=== PATIENT | male | born 1955 | race Caucasian/White ===

== ENCOUNTER 2021-06-22 05:18 | Inpatient (IN) ==
[2021-06-22] MEDS ORDERED: ONDANSETRON INJ 2 MG/ML 2 ML VIAL IV STA (05:41)
[2021-06-22] MEDS ORDERED: MoRPHine SULFATE 4 MG/ML 1 ML CARP\\VIAL IV STA (05:41)
[2021-06-22] MEDS ORDERED: SODIUM CHLORIDE 0.9% 1000ML 500 ML IV ONE (05:42)
--- NOTE | 2021-06-22 05:43 | Emergency Department Note ---
History of Present Illness General Chief complaint: Kidney Stone Stated complaint: PAIN IN KIDNEY AREA OF BACK Time Seen by Provider: 06/22/21 05:27 History of Present Illness Maximum Pain Intensity: 10 This is a 66-year-old male with a past medical history significant for that of kidney stones that presents to the emergency department via private vehicle accompanied by female with complaints of "left flank pain". The patient notes that he developed a dull left flank pain around 10:30 PM that has significantly worsened since that time. He notes a history of kidney stones and this feels similar. He previously has followed in [place] for these and recently moved to the area. He states that he was on an herbal supplement called ZoomSafer Stone Free but ran out of this about 30 days ago. He was taking this once daily. At this time he denies any fevers, chills, chest pain, shortness of breath or abdominal pain. Current pain 10/10. No hematuria. He does state tanesha t he did pass a few small pieces of stone a few days ago. Past Med/Surg History Medical History (Updated 06/22/21 @ 08:26 by Zion Valente PA-C) History of kidney stones Social History Smoking Status: Former smoker Preferred Language: Japanese Feels Safe at Home: Yes Review of Systems A total of 10 systems reviewed and were otherwise negative Physical Exam Vital Signs Vital Signs - 24 hr 06/22/21 05:20 06/22/21 05:49 Temperature 36.9 C Temperature Source Temporal Artery Scan Pulse Rate 60 57 L Pulse Rate [Right Finger] 61 Pulse Rhythm Regular Pulse Rhythm [Right Finger] Regular Respiratory Rate 18 18 Respiratory Effort / Characteristics Non-Labored Respiratory Depth Normal Normal Blood Pressure 193/95 H Blood Pressure Mean 127 Pulse Oximetry 96 96 Oxygen Delivery Method Room Air Room Air Sepsis Recent Fever Within 48 Hours No Sepsis New/Unexplained Change in Mental Status N/A Sepsis Action Taken by Nursing No Action Required VITAL SIGNS - Vital signs and nursing notes were reviewed. Stable and afebrile. GENERAL -66-year-old male appearing his stated age who is in no acute distress. Communicates well with provider and answers questions appropriately. SKIN - Without rashes. No meningeal or petechial rash. LUNGS - Chest wall symmetric without accessory muscle use, intercostals retractions, or central cyanosis. Normal vesicular breath sounds CTA B/L. No wheezes, rales, or rhonchi appreciated. CARDIAC - RRR with S1/S2. No murmur, rubs, or gallops appreciated. ABDOMEN - Abdominal contour normal without pulsations or visible masses. BS normoactive all four quadrants. No tenderness, palpable masses, hepatosplenomegaly, or ascites noted. NEUROLOGIC - Cranial nerves II through XII grossly intact. PSYCH - A&O, and cooperates fully with examiner. Pt is very pleasant and interacts well with examiner. Course Administered Medications Discontinued Medications Hydromorphone HCl (Hydromorphone Inj 0.5 Mg/0.5 Ml Syr) 0.5 mg IV NOW STA Stop: 06/22/21 06:26 Last Admin: 06/22/21 06:27 Dose: 0.5 mg Documented by: [id number] Sodium Chloride (Nss 1000ml) 500 mls @ 500 mls/hr IV .Q1H ONE Stop: 06/22/21 06:41 Last Infusion: 06/22/21 06:53 Dose: 0 mls/hr Documented by: [id number] Admin: 06/22/21 05:49 Dose: 500 mls/hr Documented by: [id number] Morphine Sulfate (Morphine Sulfate 4 Mg/Ml 1 Ml Carp\\Vial) 4 mg IV NOW STA Stop: 06/22/21 05:42 Last Admin: 06/22/21 05:48 Dose: 4 mg Documented by: [id number] Ondansetron HCl (Ondansetron Inj 2 Mg/Ml 2 Ml Vial) 4 mg IV NOW STA Stop: 06/22/21 05:42 Last Admin: 06/22/21 05:48 Dose: 4 mg Documented by: [id number] Medical Decision Making Laboratory Data Result diagrams: 06/22/21 05:30 06/22/21 05:30 Lab Results 06/22/21 06/22/21 06/22/21 Range/Units 05:30 05:30 05:31 WBC 13.31 H (4.8-10.8) K/uL RBC 3.74 L (4.7-6.1) M/uL Hgb 11.0 L (14.0-18.0) g/dL Hct 36.8 L (42-52) % MCV 98.4 (80-100) fL MCH 29.4 (25-34) pg MCHC 29.9 L (32-36) g/dL RDW Std Deviation 56.9 H (36.4-46.3) fL RDW Coeff of So 16.0 H (11.5-14.5) % Plt Count 319 (130-400) K/uL MPV 11.1 H (7.4-10.4) fL Immature Gran % (Auto) 0.2 % Neut % (Auto) 81.9 % Lymph % (Auto) 6.4 % [place] % (Auto) 10.8 % Eos % (Auto) 0.6 % Baso % (Auto) 0.1 % Neut # (Auto) 10.91 H (1.4-6.5) K/uL Lymph # (Auto) 0.85 L (1.2-3.4) K/uL [place] # (Auto) 1.44 H (0.11-0.59) K/uL Eos # (Auto) 0.08 (0-0.5) K/uL Baso # (Auto) 0.01 (0-0.2) K/uL Immature Gran # (Auto) 0.02 (0.00-0.02) K/uL Sodium 145 (136-145) mmol/L Potassium 4.0 (3.5-5.1) mmol/L Chloride 115 H (98-107) mmol/L Carbon Dioxide 23 (21-32) mmol/L Anion Gap 7.0 (3-11) BUN 35 H (7-18) mg/dl Creatinine 2.06 H (0.6-1.4) mg/dl Est Cr Clr Drug Dosing 33.0 ml/min Est GFR ( Amer) 37.2 ml/min Est GFR (Non-Af Amer) 32.1 ml/min BUN/Creatinine Ratio 17.1 (10-20) Glucose 109 H (70-99) mg/dl Calcium 8.9 (8.5-10.1) mg/dl Total Bilirubin 0.3 (0.2-1) mg/dl AST 17 (15-37) U/L ALT 38 (12-78) Alkaline Phosphatase 92 (45-117) U/L Total Protein 6.8 (6.4-8.2) gm/dl Albumin 3.6 (3.4-5.0) gm/dl Globulin 3.2 (2.5-4.0) gm/dl Albumin/Globulin Ratio 1.1 (0.9-2) Urine Color Yellow Urine Appearance Clear (Clear) Urine pH 5.0 (4.5-7.5) Ur Specific [place] 1.024 (1.000-1.030) Urine Protein Negative (Negative) Urine Glucose (UA) Negative (Negative) Urine Ketones Negative (Negative) Urine Blood Trace H (Negative) Urine Nitrite Negative (Negative) Urine Bilirubin Negative (Negative) Urine Urobilinogen Negative (Negative) Ur Leukocyte Esterase Trace H (Negative) Urine WBC (Auto) 10-30 H (0-5) /hpf Urine RBC (Auto) 10-30 H (0-4) /hpf U Hyaline Cast (Auto) 1-5 (0-5) /lpf U Epithel Cells (Auto) 5-10 H (0-5) /lpf Urine Bacteria (Auto) Negative (Negative) Urine Yeast Not Reportable MDM Narrative Patient was seen and evaluated as above in room C01. Review was performed of triage nursing notes and vital signs. After obtaining a thorough history and physical examination the above work up was performed. Patient presents to us today with left flank pain. No trauma or injury. He is hypertensive on arrival likely secondary to pain. He has a history of kidney stones. This feels similar. He is nontoxic on exam. Options of care were discussed with the patient. IV access was established. L abs were drawn. He was medicated with IV fluids, IV Zofran, IV morphine. This provided minimal relief. IV Dilaudid then ordered. A CT scan of the abdomen pelvis without IV contrast was ordered to evaluate for his left flank pain. Patient case signed out to Harrison Carbajal PA-C at shift change pending CT scan results and disposition. Please refer to further documentation regarding his stay. Labs here reveal leukocytosis 13.31. Anemia 11.0. Creat 2.06, BUN 35. No previous for comparison. Urinalysis reveals trace blood, trace leukocytes, 10- 30 white blood cells, 10-30 red blood cells, 5-10 epithelial cells. No bacteria. GCS: 15 In the evaluation and treatment of this patient the following differential diagnoses were entertained: Hydronephrosis, obstruction, kidney stone, UTI, pyelonephritis, acute abdomen, among others. Impression & Plan Acute left flank pain Discharge Plan Visit Data Chief Complaint: Kidney Stone Stated Complaint: PAIN IN KIDNEY AREA OF BACK ED Provider: Jose Alberto Marmole[facility] ED Midlevel Provider: Johnny Carbajal Discharge Problem: Acute left flank pain Patient Disposition: Still a Patient Condition: Good Forms Stand Alone Forms: [facility] Referrals Referrals: PCP,NO [Physician] -
[2021-06-22 06:06] LABS: Appearance Urine Clear (Clear); Bacteria Urine Automated Negative (Negative); Bilirubin Urine Negative (Negative); Blood Urine Trace (Negative); Color Urine Yellow; Glucose Urine UA Negative (Negative); Ketones Urine Negative (Negative); Leukocyte Esterase Urine Trace (Negative); Nitrite Urine Negative (Negative); Protein Urine Negative (Negative); Specific Gravity Urine 1.024 (1.000-1.030); Urobilinogen Urine Negative (Negative)
[2021-06-22] MEDS ORDERED: HYDROmorphone INJ 0.5 MG/0.5 ML SYR IV STA ×3 (06:25→09:27)
[2021-06-22 06:57] LABS: Basophils # (auto) 0.01 K/uL (0-0.2); Basophils % (auto) 0.1 %; Eosinophils # (auto) 0.08 K/uL (0-0.5); Eosinophils % (auto) 0.6 %; Hematocrit (blood only) 36.8 % (42-52); Immature Granulocytes # (auto) 0.02 K/uL (0.00-0.02); Immature Granulocytes % (auto) 0.2 %; Lymphocytes # (auto) 0.85 K/uL (1.2-3.4); Lymphocytes % (auto) 6.4 %; Mean Corpuscular Hemoglobin 29.4 pg (25-34); Mean Corpuscular Hgb Conc 29.9 g/dL (32-36); Mean Corpuscular Volume 98.4 fL (80-100); Mean Platelet Volume 11.1 fL (7.4-10.4); Monocytes # (auto) 1.44 K/uL (0.11-0.59); Monocytes % (auto) 10.8 %; Neutrophils # (auto) 10.91 K/uL (1.4-6.5); Neutrophils % (auto) 81.9 %; Platelet Count 319 K/uL (130-400); RDW Standard Deviation 56.9 fL (36.4-46.3); Red Blood Count 3.74 M/uL (4.7-6.1); White Blood Count 13.31 K/uL (4.8-10.8)
[2021-06-22 07:05] LABS: Albumin Level 3.6 gm/dl (3.4-5.0); BUN Creatinine Ratio 17.1 (10-20); Calcium 8.9 mg/dl (8.5-10.1); Est GFR (African American) 37.2 ml/min; Est GFR (Non-African American) 32.1 ml/min
[2021-06-22 07:08] LABS: Albumin Globulin Ratio 1.1 (0.9-2); Bilirubin,Total 0.3 mg/dl (0.2-1); Globulin 3.2 gm/dl (2.5-4.0); Total Protein 6.8 gm/dl (6.4-8.2)
[2021-06-22] MEDS ORDERED: NORCO 5/325MG HOMEPACK PO ONE (08:49)
--- NOTE | 2021-06-22 09:03 | CT Scan Report ---
CT abd pelvis wo con CLINICAL HISTORY: L flank pain TECHNIQUE: Helical axial images of the abdomen and pelvis were obtained. Automated dose lowering tech niques and/or adjustment according to patient size were utilized for this exam. This exam was perfor med without intravenous contrast. COMPARISON: None available at the time of this dictation. FINDINGS: Lower chest: Bibasilar atelectasis versus scarring is seen. Liver: Unremarkable. No focal lesions are seen. Gallbladder and biliary tree: The gallbladder is distended. A gallstone is seen. No evidence of wall thickening. No intra- or extrahepatic biliary ductal dilation. Pancreas: Unremarkable, no focal lesions. Spleen: Unremarkable. Adrenals: Unremarkable. Kidneys and ureters: There is marked left hydronephrosis and hydroureter with a 4 mm obstructive ston e in the proximal ureter. Bladder: A stone is seen in the dependent portion of the bladder. Reproductive organs: Unremarkable. Bowel: Large stool burden is seen. Radiodense material is noted in the colon. Status post gastric edu luh. Lymph nodes Retroperitoneal: Unremarkable. Mesenteric: Unremarkable. Pelvic: Unremarkable. Peritoneum: Normal Vessels: Unremarkable. Abdominal wall: Unremarkable. Bones: Unremarkable. IMPRESSION: 1. Obstructive stone in the proximal left ureter with marked left hydronephrosis and hydroureter. A stone is also seen in the dependent portion of the bladder which likely reflects recently passed ston e. 2. Large stool burden. ACT 112: Negative or not required by law. Electronically signed by: James Talbot M.D. 06/22/2021 9:02 AM
--- NOTE | 2021-06-22 09:23 | Emergency Department Note ---
ED Visit Note 66-year-old male whose care was transferred to sd from [facility] at change of shift. The patient presented to the emergency department with left flank pain onset last evening. The patient has a known history of kidney stones, and reports that this feels similar. At the time of transfer of care, noncontrast CT of the abdomen and pelvis was pending. The patient had been administered both IV morphine and hydrocodone for pain. Lab work showed a mild leukocytosis with left shift and without bandemia. Creatinine was also mildly bumped at 2.06. Urinalysis was not concerning for infection. Noncontrast CT of the abdomen and pelvis did show a large 5.2 mm diameter X 11 mm length left proximal ureteral calculus with moderate to severe hydroureteronephrosis. Local radiologist reading, however, indicated a 4 mm obstructive stone within the proximal ureter with marked left hydroureteronephrosis. Other incidental findings, including a gallstone, are also noted in the following report: CT abd pelvis wo con CLINICAL HISTORY: L flank pain TECHNIQUE: Helical axial images of the abdomen and pelvis were obtained. Auto mated dose lowering techniques and/or adjustment according to patient size were utilized for this exam. This exam was performed without intravenous contrast. COMPARISON: None available at the time of this dictation. FINDINGS: Lower chest: Bibasilar atelectasis versus scarring is seen. Liver: Unremarkable. No focal lesions are seen. Gallbladder and biliary tree: The gallbladder is distended. A gallstone is seen. No evidence of wall thickening. No intra- or extrahepatic biliary ductal dilation. Pancreas: Unremarkable, no focal lesions. Spleen: Unremarkable. Adrenals: Unremarkable. Kidneys and ureters: There is marked left hydronephrosis and hydroureter with a 4 mm obstructive stone in the proximal ureter. Bladder: A stone is seen in the dependent portion of the bladder. Reproductive organs: Unremarkable. Bowel: Large stool burden is seen. Radiodense material is noted in the colon. Status post gastric surgery. Lymph nodes Retroperitoneal: Unremarkable. Mesenteric: Unremarkable. Pelvic: Unremarkable. Peritoneum: Normal Vessels: Unremarkable. Abdominal wall: Unremarkable. Bones: Unremarkable. IMPRESSION: 1. Obstructive stone in the proximal le ft ureter with marked left hydronephrosis and hydroureter. A stone is also seen in the dependent portion of the bladder which likely reflects recently passed stone. 2. Large stool burden. ACT 112: Negative or not required by law. Electronically signed by: James Talbot M.D. 06/22/2021 9:02 AM Findings were discussed with the patient. At this point, I contacted and spoke with Dr. Mai, urologist pets salesperson, who indicated that a ureteral stent is not necessary. He has recommended outpatient management with adequate pain control, or may admit to the hospital for pain management and he can consult as needed for further management. This conversation was further discussed with the patient, who initially favoredoutpatient management. He did request additional pain medicine, and was administered 2 additional doses of IV Dilaudid without any significant relief of his discomfort. He then started to develop some mild reflux. At this point, since the patient has not had adequate pain relief, [facility]. The patient was in agreement. The patient was administered IV Pepcid. COVID-19 RNA test was negative. Please see the hospitalist and urologist dictations for further treatment and final disposition. MEDICAL DECISION MAKING: CT imaging today does show evidence for a proximal left ureteral calculus with marked hydroureteronephrosis. The patient also has a bump in his BUN, and has had poor pain control while in the emergency department. Urinalysis is not suggestive of infection. I do feel that hospital observation with pain management and urology consultation is warranted. DIAGNOSIS: 1. Intractable left flank pain 2. Proximal left ureteral calculus .
[2021-06-22] MEDS ORDERED: FAMOTIDINE 20MG/5ML IV PUSH IV STA (10:26)
[2021-06-22] MEDS ORDERED: hydrALAZINE HCL 20 MG/ML VIAL IV PRN (11:29)
[2021-06-22] MEDS ORDERED: POLYETHYLENE (MIRALAX) 17 GM PACK PO SCH (13:52)
[2021-06-22] MEDS ORDERED: HYDROCODONE/ACETAMOPHEN 5/325MG TAB PO PRN (13:52)
[2021-06-22] MEDS ORDERED: SODIUM CHLORIDE 0.9% 1000ML 1,000 ML IV SCH (13:52)
[2021-06-22] MEDS ORDERED: hydrALAZINE HCL 20 MG/ML VIAL IV ONE (13:52)
[2021-06-22] MEDS ORDERED: MAGNESIUM HYDROXIDE SUSP 30 ML UDC PO PRN (13:52)
[2021-06-22] MEDS ORDERED: HYDROmorphone INJ 0.5 MG/0.5 ML SYR IV PRN (13:52)
[2021-06-22] MEDS ORDERED: PATIENT'S ALLERGY INFO NEEDS ENTERED SCH (14:00)
[2021-06-22] MEDS ORDERED: HYDROCODONE/ACETAMOPHEN 5/325MG TAB PO ONE (14:16)
[2021-06-22] MEDS ORDERED: PROMETHAZINE HCL 12.5 MG in SODIUM CHLORIDE 0.9% 50 ML IV PRN (14:45)
[2021-06-22] MEDS ORDERED: RIVAROXABAN 20 MG TAB PO ONE (17:05)
--- NOTE | 2021-06-22 17:23 | History & Physical Report ---
Date of Service June 22, 2021 Assessment & Plan (1) Calculus of proximal left ureter: Plan: 66-year-old male with history of hypertension, dyslipidemia, GERD, BPH, kidney stones, migraine, peripheral artery disease on Xarelto Presenting with left flank pain since yesterday. LEFT PROXIMAL URETERAL STONE, 4 MM WITH HYDRONEPHROSIS AND HYDROURETER ACUTE RENAL FAILURE ON CHRONIC KIDNEY DISEASE STAGE III Baseline creatinine 1.6 now 2.0 Continue IV NSS, tamsulosin, as needed Dilaudid, [place], tramadol Urologist consulted Clear liquids for today, n.p.o. after midnight POSSIBLE UTI Urine culture: Pending Ceftriaxone IV 2 g IV daily HYPERTENSION Continue atenolol HISTORY OF PERIPHERAL ARTERY DISEASE, RIGHT LOWER EXTREMITY On Xarelto and aspirin HISTORY OF DEPRESSION/ANXIETY On sertraline DVT prophylaxis SCDs for now Full code per patient Disposition anticipate discharge to home medically stable plan of care discussed with patient and his in detail and at length all questions answered They are understanding, agreeable, comfortable with the plan of care Admission and Anticipated Discharge Date Admission Date: June 22, 2021 History of Present Illness Chief Complaint: 66-year-old male with history of hypertension, dyslipidemia, GERD, BPH, kidney stones, migraine, peripheral artery disease on Xarelto Presenting with left flank pain since yesterday. Patient follows with [facility] urologist Dr. Alexandro Brasher for kidney stones. Since yesterday, patient has been having progressive left-sided flank pain with no dysuria, fevers or chills, hematuria. Presented to the ER secondary to severe pain. CAT scan of the abdomen pelvis revealing 4 mm left ureteral proximal stone. Creatinine also elevated 2.0. Urinalysis showing possible UTI. On exam, patient seen resting in bed, at bedside visiting. States pain is now mild, no fevers or chills. Denies shortness of breath, palpitations, dizziness, chest pain. Reports chronic right upper quadrant discomfort, worse informed that he has gallbladder stone on previous follow-up visits with physician. No other symptoms Primary Care Provider: Joann Ireland MD Allergies Allergy/AdvReac Type Severity Reaction Status Date / Time Penicillins AdvReac Intermediate Rash Verified 06/22/21 14:25 Sulfa (Sulfonamide AdvReac Intermediate Rash Verified 06/22/21 14:25 Antibiotics) Home Medications Medication Instructions Recorded Confirmed Type atenolol 25 mg tablet 25 mg PO DAILY 06/22/21 06/22/21 History finasteride 5 mg tablet 5 mg PO DAILY 06/22/21 06/22/21 History fluticasone propionate 50 1 spray INTRANASAL DAILY 06/22/21 06/22/21 History mcg/actuation nasal spray,suspension hydrocodone 5 mg-acetaminophen 325 1 tab PO Q4H PRN #15 tab 06/22/21 Rx mg tablet montelukast 10 mg tablet 10 mg PO DAILY 06/22/21 06/22/21 History prednisone 20 mg tablet 20 mg PO DAILY 06/22/21 06/22/21 History rivaroxaban 20 mg tablet (Xarelto) 20 mg PO DAILY 06/22/21 06/22/21 History sertraline 100 mg tablet 100 mg PO DAILY 06/22/21 06/22/21 History sumatriptan succinate 100 mg tablet 100 mg PO DAILY PRN 06/22/21 06/22/21 H istory Past Med/Surg History Medical History (Updated 06/22/21 @ 08:48 by Johnny Carbajal) History of kidney stones Social History Smoking Status: Never smoker Second Hand Exposure: No; Do You Dip or Chew Tobacco: No; Tobacco Cessation Education Requested by Patient: No Hx Alcohol Use: No Hx Substance Use: No Preferred Language: Surinamese Communication Ability: Effective Inspector Type Required: No Beliefs That Will Affect Care: None Current Living Situation: Spouse Other Information That Helps Us Care for You: No Feels Safe at Home: Yes Safety Concerns: Feels Safe At This Time Assistive Devices: Denture - Upper Review of Systems Review of Systems: all noted and negative except for above Physical Exam Physical Exam: General- oriented x 3, not in distress, speaks in sentences with no effort or accessory muscle use Head- atraumatic Eyes- PERRL, EOMI, anicteric ENT- oropharynx clear Neck- supple, no JVD, no adenopathy, no thyromegaly; carotids +2/2, no bruits appreciated Lungs- clear to auscultation bilaterally, no rales/wheezes Heart- normal rate, regular rhythm; no murmur, no gallop, no rub appreciated Abdomen- normal bowel sounds, nondistended, soft, mild right upper quadrant tenderness, mild left CVA tenderness no masses or hepatosplenomegaly Extremities- no pretibial edema, no calf tenderness; peripheral pulses intact Neuro- alert, oriented x 3; CN 2-12 grossly intact; motor 5/5 bilaterally;sensation 100% on all extremities; no other gross focal neurologic deficits Skin- warm & dry Results & Data Results & Data ([facility]) Vital Signs (Past 12 Hours) Vital Signs Temp Pulse Pulse Resp BP BP Pulse Ox 06/22/21 15:50 36.8 C 67 16 147/77 H 97 06/22/21 13:35 75 17 150/86 H 96 06/22/21 12:04 159/91 H 06/22/21 11:40 165/97 H 06/22/21 11:13 68 18 198/108 H 93 06/22/21 09:00 88 18 169/100 H 97 06/22/21 07:18 88 18 177/103 H 96 06/22/21 05:49 57 L 61 18 96 all noted and reviewed including below Code Status & VTE Plan VTE Prophylaxis Plan VTE Prophylaxis will be ordered: Yes
[2021-06-22] MEDS: TAMSULOSIN HCL 0.4 MG CAP PO SCH (17:55)
[2021-06-22] MEDS: cefTRIAXone SODIUM 1,000 MG in DEXTROSE 5% 50 ML IV SCH (17:55)
[2021-06-22] MEDS: ASPIRIN 81 MG ECTAB PO SCH (17:56)
[2021-06-22] MEDS: SUMAtriptan succinate 100 MG TAB PO PRN (18:26)
--- NOTE | 2021-06-22 19:46 | Ultrasound Report ---
US gallbladder CLINICAL HISTORY: r/o cholecystitis TECHNIQUE: Multiple real-time sonographic images of the right upper quadrant were obtained. Comparison: Comparison is made to CT abdomen pelvis 06/22/2021 FINDINGS: The liver is diffusely echogenic in appearance with poor ultrasound penetration, with normal contour, which is consistent with fatty infiltration. No focal mass lesions are seen. No intrahepatic lenny livier dilatation is seen. The gallbladder is dilated. A single gallstone is seen which appears mobile. A sonographic Arvizu's sign was not elicited by the social work msw. The common duct measures 0.9 cm i n diameter at the level of the hepatic artery. The visualized portions of the pancreas appear normal . The right kidney shows normal echogenicity, cortical thickness and renal contour. The right kidney sh ows no evidence of hydronephrosis or mass. No ascites or free fluid is seen in Montanez's pouch. IMPRESSION: 1. No evidence of acute cholecystitis. Prominent gallbladder, no evidence of wall thickening or Murp hy's sign. Mobile gallstone is noted. 2. Common duct measures 0.9 cm in diameter, slightly dilated for age. ACT 112: Negative or not required by law. Electronically signed by: James Talbot M.D. 06/22/2021 7:45 PM
[2021-06-23] MEDS: traMADol HCL 50 MG TABLET PO PRN ×2 (00:16→05:06)
[2021-06-23 07:59] LABS: Eosinophils # (auto) 0.01 K/uL (0-0.5); Eosinophils % (auto) 0.1 %; Hematocrit (blood only) 33.3 % (42-52); Hemoglobin 9.8 g/dL (14.0-18.0); Immature Granulocytes # (auto) 0.02 K/uL (0.00-0.02); Immature Granulocytes % (auto) 0.2 %; Lymphocytes # (auto) 0.75 K/uL (1.2-3.4); Lymphocytes % (auto) 6.6 %; Mean Corpuscular Hemoglobin 28.9 pg (25-34); Mean Corpuscular Hgb Conc 29.4 g/dL (32-36); Mean Corpuscular Volume 98.2 fL (80-100); Mean Platelet Volume 10.8 fL (7.4-10.4); Monocytes # (auto) 0.48 K/uL (0.11-0.59); Monocytes % (auto) 4.2 %; Neutrophils # (auto) 10.05 K/uL (1.4-6.5); Neutrophils % (auto) 88.9 %; Platelet Count 234 K/uL (130-400); RDW Standard Deviation 57.7 fL (36.4-46.3); Red Blood Count 3.39 M/uL (4.7-6.1); White Blood Count 11.31 K/uL (4.8-10.8)
[2021-06-23 08:32] LABS: BUN Creatinine Ratio 15.8 (10-20); Calcium 8.4 mg/dl (8.5-10.1); Creatinine Clr Calc Pharmacy 31.3 ml/min; Est GFR (Non-African American) 30.2 ml/min; Potassium 4.7 mmol/L (3.5-5.1)
[2021-06-23] MEDS ORDERED: HYDROCODONE/ACETAMOPHEN 5/325MG TAB PO PRN (08:32)
[2021-06-23] MEDS ORDERED: HYDROmorphone INJ 0.5 MG/0.5 ML SYR IV PRN (08:32)
[2021-06-23] MEDS ORDERED: RIVAROXABAN 20 MG TAB PO SCH (09:00)
[2021-06-23] MEDS: TAMSULOSIN HCL 0.4 MG CAP PO SCH (09:20)
[2021-06-23] MEDS: SERTRALINE HCL 100 MG TABLET PO SCH (09:20)
[2021-06-23] MEDS: FLUTICASONE PROPIONATE NA SPR 16 GM BTL SCH (09:20)
[2021-06-23] MEDS: ATENOLOL 25 MG TABLET PO SCH (09:20)
[2021-06-23] MEDS: FINASTERIDE 5 MG TAB PO SCH (09:20)
[2021-06-23] MEDS: MONTELUKAST SODIUM 10 MG TABLET PO SCH (09:20)
--- NOTE | 2021-06-23 10:28 | Anesthesiology Consultation ---
Date of Service June 23, 2021 Assessment & Plan (1) Encounter for pre-operative examination: Chart Review Chart Review: Acceptable Risk for Surgery and Patient NOT seen in Pre Admission Testing Consults Requested none History Surgery Operation Date: 06/23/21 12:00 Proposed Procedures p Ureteral Stent Insertion/Removal, Left - Trevon Mai MD Height/Weight Height: 6 ft Weight: 67.9 kg Allergies Allergy/AdvReac Type Severity Reaction Status Date / Time Penicillins AdvReac Intermediate Rash Verified 06/22/21 14:25 Sulfa (Sulfonamide AdvReac Intermediate Rash Verified 06/22/21 14:25 Antibiotics) Medications Home Medications Medication Instructions Recorded Confirmed Last Taken atenolol 25 mg tablet 25 mg PO DAILY 06/22/21 06/22/21 Unknown finasteride 5 mg tablet 5 mg PO DAILY 06/22/21 06/22/21 Unknown fluticasone propionate 50 1 spray INTRANASAL DAILY 06/22/21 06/22/21 Unknown mcg/actuation nasal spray,suspension hydrocodone 5 mg-acetaminophen 325 1 tab PO Q4H PRN #15 tab 06/22/21 Unknown mg tablet montelukast 10 mg tablet 10 mg PO DAILY 06/22/21 06/22/21 Unknown prednisone 20 mg tablet 20 mg PO DAILY 06/22/21 06/22/21 Unknown rivaroxaban 20 mg tablet (Xarelto) 20 mg PO DAILY 06/22/21 06/22/21 Unknown sertraline 100 mg tablet 100 mg PO DAILY 06/22/21 06/22/21 Unknown sumatriptan succinate 100 mg tablet 100 mg PO DAILY PRN 06/22/21 06/22/21 Unknown Active Medications Generic Name Dose Route Start Last Admin Trade Name Freq PRN Reason Stop Dose Admin Hydrocodone Bitart/Acetaminophen 1 tab 06/23/21 08:32 06/23/21 08:53 Hydrocodone/Acetamophen 5/325mg Tab PO 07/07/21 08:31 1 tab Q6H PRN Administration Moderate Pain Aspirin 81 mg 06/22/21 17:15 06/22/21 17:56 Aspirin 81 Mg Ectab PO 07/22/21 17:14 81 mg DAILY YIFAN Administration Atenolol 25 mg 06/23/21 09:00 06/23/21 09:20 Atenolol 25 Mg Tablet PO 07/23/21 08:59 25 mg DAILY YIFAN Administration Finasteride 5 mg 06/23/21 09:00 06/23/21 09:20 Finasteride 5 Mg Tab PO 07/23/21 08:59 5 mg DAILY YIFAN Administration Fluticasone Propionate 1 sprays 06/23/21 09:00 06/23/21 09:20 Fluticasone Propionate Na Spr 16 Gm Btl NA 07/23/21 08:59 1 sprays DAILY YIFAN Administration Ceftriaxone Sodium 1,000 mg/ 50 mls @ 100 mls/hr 06/22/21 18:00 06/22/21 20:35 Dextrose IV 07/02/21 17:29 Infused Q24H YIFAN Infusion Protocol Montelukast Sodium 10 mg 06/23/21 09:00 06/23/21 09:20 Montelukast Sodium 10 Mg Tablet PO 07/23/21 08:59 10 mg DAILY YIFAN Administration Sertraline HCl 100 mg 06/23/21 09:00 06/23/21 09:20 Sertraline Hcl 100 Mg Tablet PO 07/23/21 08:59 100 mg DAILY YIFAN Administration Sumatriptan Succinate 100 mg 06/22/21 16:26 06/22/21 18:26 Sumatriptan Succinate 100 Mg Tab PO 07/22/21 16:25 100 mg DAILY PRN Administration Migraine Headache Tamsulosin HCl 0.4 mg 06/22/21 17:30 06/23/21 09:20 Tamsulosin Hcl 0.4 Mg Cap PO 07/22/21 17:29 0.4 mg QAM YIFAN Administration Tramadol HCl 50 mg 06/22/21 17:06 06/23/21 05:06 Tramadol Hcl 50 Mg Tablet PO 07/22/21 17:05 50 mg Q4H PRN Administration Moderate Pain Past Medical History Medical History History of kidney stones Social History Smoking Status: Never smoker Do You Dip or Chew Tobacco: No Hx Alcohol Use: No Hx Substance Use: No Physical Exam Vital Signs Last Vital Signs Temp 98.1 F 06/23/21 07:09 Pulse 61 06/23/21 07:09 Resp 16 06/23/21 07:09 BP 163/71 H 06/23/21 07:09 Pulse Ox 97 06/23/21 07:09 Testing Laboratory Results 06/23/21 07:21 06/23/21 07:21 Urine Color Yellow 06/22/21 05:31 Urine Appearance Clear (Clear) 06/22/21 05:31 Urine pH 5.0 (4.5-7.5) 06/22/21 05:31 Ur Specific [place] 1.024 (1.000-1.030) 06/22/21 05:31 Urine Protein Negative (Negative) 06/22/21 05:31 Urine Glucose (UA) Negative (Negative) 06/22/21 05:31 Urine Ketones Negative (Negative) 06/22/21 05:31 Urine Nitrite Negative (Negative) 06/22/21 05:31 Ur Leukocyte Esterase Trace (Negative) H 06/22/21 05:31 Urine WBC (Auto) 10-30 /hpf (0-5) H 06/22/21 05:31 Urine RBC (Auto) 10-30 /hpf (0-4) H 06/22/21 05:31 U Hyaline Cast (Auto) 1-5 /lpf (0-5) 06/22/21 05:31 U Epithel Cells (Auto) 5-10 /lpf (0-5) H 06/22/21 05:31 Urine Bacteria (Auto) Negative (Negative) 06/22/21 05:31
--- NOTE | 2021-06-23 10:45 | Urology Consultation ---
Date of Consultation June 23, 2021 Assessment & Plan (1) Calculus of proximal left ureter: Symptomatic left ureteral calculus with hydronephrosis Plan for cystoscopy and left ureteral stent placement todayhe also has several small but bladder calculi and I will perform cystolitholapaxy to evacuate the stones. He will then need outpatient follow-up to definitively treat his ureteral and renal calculi. History of Present Illness Attending Physician: Sanket Dyer MD History of Present Illness 66-year-old male who recently relocated to the area Long history of kidney stones requiring ESWL on multiple prior occasions Recently developed left flank pain and was evaluated in the ER Noted to have significant left hydronephrosis with an elevated creatinine of 2.1 Left ureteral stone clearly the cause of the hydronephrosis Also has other renal stones on both sides as well as several bladder stones Afebrile, slightly hypertensive but otherwise hemodynamically stable Still having left flank pain today He did have a left stent placed years ago in [facility], he tolerated the stent relatively well He has not established with a urologist since arriving in [place] Interestingly, despite his personal history of numerous kidney stones, there is no other family history of kidney stones Allergies Allergy/AdvReac Type Severity Reaction Status Date / Time Penicillins AdvReac Intermediate Rash Verified 06/22/21 14:25 Sulfa (Sulfonamide AdvReac Intermediate Rash Verified 06/22/21 14:25 Antibiotics) Home Medications Medication Instructions Recorded Confirmed Type atenolol 25 mg tablet 25 mg PO DAILY 06/22/21 06/22/21 History finasteride 5 mg tablet 5 mg PO DAILY 06/22/21 06/22/21 History fluticasone propionate 50 1 spray INTRANASAL DAILY 06/22/21 06/22/21 History mcg/actuation nasal spray,suspension hydrocodone 5 mg-acetaminophen 325 1 tab PO Q4H PRN #15 tab 06/22/21 Rx mg tablet montelukast 10 mg tablet 10 mg PO DAILY 06/22/21 06/22/21 History prednisone 20 mg tablet 20 mg PO DAILY 06/22/21 06/22/21 History rivaroxaban 20 mg tablet (Xarelto) 20 mg PO DAILY 06/22/21 06/22/21 History sertraline 100 mg tablet 100 mg PO DAILY 12/25/21 12/25/21 History sumatriptan succinate 100 mg tablet 100 mg PO DAILY PRN 06/22/21 06/22/21 History Patient History Medical History History of kidney stones Social History Smoking Status: Never smoker Second Hand Exposure: No; Do You Dip or Chew Tobacco: No; Tobacco Cessation Education Requested by Patient: No Hx Alcohol Use: No Hx Substance Use: No Preferred Language: Canadian Communication Ability: Effective Photogrammetrist Required: No Beliefs That Will Affect Care: None Current Living Situation: Spouse Other Information That Helps Us Care for You: No Feels Safe at Home: Yes Safety Concerns: Feels Safe At This Time Assistive Devices: None Review of Systems Constitutional: no fever, no chills and no fatigue Eyes: no worsening vision Ear, Nose, Mouth, Throat: no facial pain and no pain with swallowing Respiratory: no cough and no dyspnea Cardiovascular: no chest pain and no palpitations Gastrointestinal: + abdominal pain and + nausea; no vomiting Musculoskeletal: no back pain Integumentary: no rash and no urticaria Neurologic: no gait abnormality and no unsteadiness Psychiatric: no behavioral changes and no depression Endocrine: no fatigue Physical Exam Constitutional: well developed and well nourished Neck: neck nontender Respiratory: normal respiratory effort; no respiratory distress and does not use accessory muscles Cardiovascular: Rate/Rhythm: regular rate Vessels: radial pulses present Extremities: no edema Gastrointestinal (Abdomen): Inspection/Auscultation: abdomen normal to inspection Percussion/Palpation: + abdomen tender (Left lower quadrant) and abdomen soft; no guarding Musculoskeletal: Head/Neck/Chest: normocephalic and head atraumatic Extremities: extremities normal to inspection Skin: no rashes and no lesions Trauma: no evidence of skin trauma Neurologic: awake; not obtunded Speech / Cognition: normal speech Motor/Sensory: no tremor Psychiatric: Orientation: alert and oriented x 3 Genitourinary: no CVA tenderness Lymphatic: no lymphadenopathy Results & Data ([facility]) Vital Signs (Past 12 Hours) Vital Signs Temp Pulse Resp BP Pulse Ox 06/23/21 07:09 36.7 C 61 16 163/71 H 97 06/23/21 06:16 92 06/22/21 23:41 69 17 145/76 H 92 PG Care Time/CCT Total # of Minutes Spent Total Time Spent with Patient: Total time spent is greater than 50% in coordination of care (as documented) at patient's floor/unit and/or counseling patient: Coding Level of Care Code 67446 Inpt Consult Level 3 Diagnoses Calculus of proximal left ureter N20.1
--- NOTE | 2021-06-23 12:00 | Electrocardiogram Report ---
Test Reason : Blood Pressure : / mmHG Vent. Rate : 058 BPM Atrial Rate : 058 BPM P-R Int : 150 ms QRS Dur : 090 ms QT Int : 404 ms P-R-T Axes : 033 -20 012 degrees QTc Int : 396 ms Sinus bradycardia Otherwise normal ECG No previous ECGs available Confirmed by Dedrick Sapp ([id number]) on 06/23/2021 11:59:57 AM Referred By: REFERRED SELF Confirmed By:Dedrick Sapp
[2021-06-23] MEDS ORDERED: fentaNYL citrate 100 MCG/2 ML VIAL ONE (12:43)
[2021-06-23] MEDS ORDERED: MIDAZOLAM HCL 1 MG/ML 2ML VIAL ONE (12:43)
[2021-06-23] MEDS ORDERED: ONDANSETRON INJ 2 MG/ML 2 ML VIAL IV PRN (12:54)
[2021-06-23] MEDS ORDERED: fentaNYL citrate 100 MCG/2 ML VIAL IV PRN (12:54)
[2021-06-23] MEDS ORDERED: ATROPINE SULFATE 0.1 MG/ML 10ML SYR IV PRN (12:54)
[2021-06-23] MEDS ORDERED: ePHEDrine sulfate 50 MG/ML AMP IV PRN (12:54)
[2021-06-23] MEDS ORDERED: LIDOCAINE 2% 2 ML VIAL/AMP(20MG/ML) INFIL ONE (13:04)
[2021-06-23] MEDS ORDERED: PROPOFOL IV EMULSION 10 MG/ML 20 ML VIAL IV ONE (13:04)
[2021-06-23] MEDS ORDERED: ONDANSETRON INJ 2 MG/ML 2 ML VIAL ONE (13:21)
--- NOTE | 2021-06-23 13:27 | Operative Report ---
PG Post Operative Report Pre & Post Diagnosis Operation Date: 06/23/21 12:00 Pre-Op Diagnosis: Left ureteral stone; bladder stone Post-Op Diagnosis: Left ureteral stone; bladder stone I identified the patient and participated in the time-out.: Yes Procedure Operation Date: 06/23/21 12:00 Actual Procedures p Left Ureteral Stent Insertion, cystoscopy, cystolitholopaxy(Left) - Trevon Mai MD Surgeon Norm Mai MD Director Of Patient Financial Services none Estimated Blood Loss 0 Findings Consistent with Post-Op Diagnosis Specimens Bladder stone for chemical analysis Description of Procedure Patient arrived in the operating suite and received appropriate sedation. He has been on ceftriaxone as preoperative antibiotics. To begin the case I passed a 22 [place] cystoscope per urethra. Inspection revealed a healthy-appearing urethra with a moderately enlarged prostate. Upon entry into his bladder I encountered a brown appearing bladder calculus. This was slightly too large to irrigate out through the scope. His ureteral orifices were located just behind a small intravesical component of his prostate. I was able to advance a wire into the left UO and guided to the kidney under fluoroscopic guidance. Immediately upon passage of the wire there was a discharge of dark/old urine from the left kidney. No purulence. A 6 [place] by 26 cm stent was placed with a good curl in the kidney as well as the bladder. I then turned my attention back to the bladder stone. I attempted to utilize a flexible grasper to crack the stone into 2 pieces. Unfortunately the stone was slightly too large to allow this. I was able to break off several small fragments and irrigate these out of the bladder. I then attempted to grasp the stone and hole and pulled out with the scope but it again was slightly too large. Instead I left the stone and placed in the bladder and we will plan to treat it when he has the stones treated in the later date. He was reversed from anesthesia and taken to the recovery room in stable condition. There were no complications. I attest to the content of the Intraoperative Record and any orders documented therein. Any exceptions are noted below.
--- NOTE | 2021-06-23 13:51 | Anesthesiology Progress Note ---
Date of Service June 23, 2021 Anesthesia Post Procedure Vital Signs Vital Signs: Temp Pulse Pulse Resp BP Pulse Ox 06/23/21 13:40 65 12 113/64 93 06/23/21 13:30 97.9 F 67 13 106/63 99 06/23/21 07:09 98.1 F 61 16 163/71 H 97 06/23/21 06:16 92 06/22/21 23:41 69 17 145/76 H 92 06/22/21 21:50 98.6 F 160/89 H 06/22/21 20:11 63 14 93 06/22/21 15:50 98.2 F 67 16 147/77 H 97 Pain Intensity Left Flank: Pain Intensity: 6 Transfer of Care Handoff Completed per policy Notes Mental Status: alert / awake / arousable and participated in evaluation Patient Amnestic to Procedure: Yes Nausea / Vomiting: adequately controlled Pain: adequately controlled Airway Patency, RR, SpO2: stable & adequate BP & HR: stable & adequate Hydration State: stable & adequate Anesthetic Complications: no major complications apparent and Pt Satisfied with anesthetic care
--- NOTE | 2021-06-23 14:58 | Fluoroscopy Report ---
FL KUB CLINICAL HISTORY: CYSTO LEFT STENT COMPARISON STUDY: None FLUOROSCOPY TIME: 3 seconds. FLUOROSCOPIC IMAGES: 1 FINDINGS: The upper aspect of the double-J ureteral stent is present on the left. IMPRESSION: Status post placement of left ureteral stent. ACT 112: Negative or not required by law. Electronically signed by: Jarrod Ramirez M.D. 06/23/2021 2:57 PM
--- NOTE | 2021-06-23 15:08 | Hospitalist Progress Note ---
Date of Service June 23, 2021 Assessment & Plan (1) Calculus of proximal left ureter: Plan: 66-year-old male with history of hypertension, dyslipidemia, GERD, BPH, kidney stones, migraine, peripheral artery disease on Xarelto Presenting with left flank pain since yesterday. LEFT PROXIMAL URETERAL STONE, 4 MM WITH HYDRONEPHROSIS AND HYDROURETER ACUTE RENAL FAILURE ON CHRONIC KIDNEY DISEASE STAGE III Baseline creatinine 1.6 now 2.0 Continue IV NSS, tamsulosin, as needed Dilaudid, [place], tramadol Urologist consulted Clear liquids for today, n.p.o. after midnight Status postLeft Ureteral Stent Insertion, cystoscopy, cystolitholopaxy(Left) - Trevon Mai MD Continue IV NSS, as needed analgesics Creatinine 2.1 today Monitor closely POSSIBLE UTI Afebrile Urine culture: Pending Ceftriaxone IV 2 g IV daily HYPERTENSION Continue atenolol HISTORY OF PERIPHERAL ARTERY DISEASE, RIGHT LOWER EXTREMITY Hold Xarelto and aspirin in light of urologic procedure Resume tomorrow if without any bleeding HISTORY OF DEPRESSION/ANXIETY On sertraline DVT prophylaxis SCDs for now Full code per patient Disposition anticipate discharge to home medically stable plan of care discussed with patient in detail all questions answered he is understanding, agreeable, comfortable with the plan of care Admission and Anticipated Discharge Date Admission Date: June 22, 2021 Subjective Follow-up for left ureteral stone, acute renal failure, etc. Was having severe left flank pain today Improved with IV Dilaudid Seen resting in bed, comfortable, not distressed Left flank pain is 3 out of 10 now denies fevers or chills, hematuria, dysuria No abdominal pain No other symptoms Review of Systems Review of Systems: all noted and negative except for above Physical Exam Physical Exam: General- oriented x 3, not in distress, speaks in sentences with no effort or accessory muscle use Eyes- anicteric Neck- no JVD Lungs- clear breath sounds bilaterally, no rales/wheezes Heart- normal rate, regular rhythm; no murmurs Abdomen- normal bowel sounds, nondistended, soft, nontender Extremities- no pretibial edema, no calf tenderness Neuro- alert, oriented x 3; no gross focal neurologic deficits Skin- warm & dry Results & Data Results & Data ([facility]) Vital Signs (Past 12 Hours) Vital Signs Temp Pulse Pulse Resp BP Pulse Ox 06/23/21 14:27 37 C 64 16 123/68 91 06/23/21 14:23 37.1 C 67 16 119/70 91 06/23/21 13:50 36.8 C 62 18 116/68 95 06/23/21 13:40 65 12 113/64 93 06/23/21 13:30 36.6 C 67 13 106/63 99 06/23/21 07:09 36.7 C 61 16 163/71 H 97 06/23/21 06:16 92 all noted and reviewed including below
[2021-06-23] MEDS: SODIUM CHLORIDE 0.9% 1000ML 1,000 ML IV SCH (15:14)
[2021-06-23] MEDS: SUMAtriptan succinate 100 MG TAB PO PRN (16:09)
[2021-06-23] MEDS: cefTRIAXone SODIUM 1,000 MG in DEXTROSE 5% 50 ML IV SCH (18:12)
[2021-06-24] MEDS: SODIUM CHLORIDE 0.9% 1000ML 1,000 ML IV SCH ×2 (01:24→09:17)
[2021-06-24] MEDS: SUMAtriptan succinate 100 MG TAB PO PRN (07:28)
[2021-06-24 07:36] LABS: BUN Creatinine Ratio 21.2 (10-20); Calcium 7.9 mg/dl (8.5-10.1); Creatinine Clr Calc Pharmacy 44.4 ml/min; Est GFR (African American) 53.4 ml/min; Potassium 3.6 mmol/L (3.5-5.1)
--- NOTE | 2021-06-24 08:43 | Urology Progress Note ---
Date of Service June 24, 2021 Assessment & Plan (1) Calculus of proximal left ureter: Plan: - Pt POD#1 s/p cystoscopy, left ureteral stent and cystolitholapaxy with Dr. Mai - Doing well, progressing as expected - Afebrile, lab work reviewed - creatinine improved to 1.53, WBC improved to 11.31 today - Tolerating left ureteral stent with minimal bother - Okay to d/c from perspective when medically stable - Recommend d/c with Tamsulosin, prn Pyridium and prn pain medication for stent management - Expected clinical course reviewed, all questions answered - Patient will need f/u for definitive stone management - scheduled with Dr. Brasher at [facility], his established urologist - will sign off at this time, please consult our service with any additional questions Admission and Anticipated Discharge Date Admission Date: June 22, 2021 Subjective Patient seen and examined at bedside this AM. He is awake, alert and sitting up in bed. No acute issues overnight. Denies flank or abdominal pain at present. Voiding spontaneously, notes some urgency with leakage. No dysuria. No fever, chills, nausea or vomiting. Review of Systems Constitutional: as per Subjective / HPI Gastrointestinal: as per Subjective / HPI Genitourinary: + as per Subjective / HPI Physical Exam Constitutional: well developed and well nourished; no acute distress and not ill appearing Respiratory: normal respiratory effort and able to speak in complete sentences; no respiratory distress and no labored breathing Gastrointestinal (Abdomen): Inspection/Auscultation: abdomen normal to inspection; abdomen not distended Neurologic: moves all extremities and awake Psychiatric: Orientation: alert, oriented x 3 and cooperative Results & Data ([facility]) Vital Signs (Past 12 Hours) Vital Signs Temp Pulse Pulse Resp BP Pulse Ox 06/24/21 07:05 37.2 C 69 18 127/64 92 06/24/21 03:57 37.4 C 66 17 122/64 92 06/23/21 22:26 37.2 C 71 16 131/72 95 PG Care Time/CCT Total # of Minutes Spent Total Time Spent with Patient: Total time spent is greater than 50% in coordination of care (as documented) at patient's floor/unit and/or counseling patient: Coding Level of Care Code 39133 Subseq Hosp Care Lvl 2 Diagnoses Calculus of proximal left ureter N20.1
[2021-06-24] MEDS: ATENOLOL 25 MG TABLET PO SCH (09:16)
[2021-06-24] MEDS: ASPIRIN 81 MG ECTAB PO SCH (09:16)
[2021-06-24] MEDS: SERTRALINE HCL 100 MG TABLET PO SCH (09:17)
[2021-06-24] MEDS: MONTELUKAST SODIUM 10 MG TABLET PO SCH (09:17)
[2021-06-24] MEDS: FINASTERIDE 5 MG TAB PO SCH (09:17)
[2021-06-24] MEDS: TAMSULOSIN HCL 0.4 MG CAP PO SCH (09:17)
[2021-06-24] MEDS: FLUTICASONE PROPIONATE NA SPR 16 GM BTL SCH (09:17)
[2021-06-24] MEDS: traMADol HCL 50 MG TABLET PO PRN (11:13)
--- NOTE | 2021-06-24 16:10 | Discharge Summary ---
Date of Service June 24, 2021 Admission HPI Per Admitting Provider 66-year-old male with history of hypertension, dyslipidemia, GERD, BPH, kidney stones, migraine, peripheral artery disease on Xarelto Presenting with left flank pain since yesterday. Patient follows with [facility] urologist Dr. Alexandro Brasher for kidney stones. Since yesterday, patient has been having progressive left-sided flank pain with no dysuria, fevers or chills, hematuria. Presented to the ER secondary to severe pain. CAT scan of the abdomen pelvis revealing 4 mm left ureteral proximal stone. Creatinine also elevated 2.0. Urinalysis showing possible UTI. On exam, patient seen resting in bed, at bedside visiting. States pain is now mild, no fevers or chills. Denies shortness of breath, palpitations, dizziness, chest pain. Reports chronic right upper quadrant discomfort, worse informed that he has gallbladder stone on previous follow-up visits with physician. No other symptoms Admission Exam Per Admitting Provider General- oriented x 3, not in distress, speaks in sentences with no effort or accessory muscle use Head- atraumatic Eyes- PERRL, EOMI, anicteric ENT- oropharynx clear Neck- supple, no JVD, no adenopathy, no thyromegaly; carotids +2/2, no bruits appreciated Lungs- clear to auscultation bilaterally, no rales/wheezes Heart- normal rate, regular rhythm; no murmur, no gallop, no rub appreciated Abdomen- normal bowel sounds, nondistended, soft, mild right upper quadrant tenderness, mild left CVA tenderness no masses or hepatosplenomegaly Extremities- no pretibial edema, no calf tenderness; peripheral pulses intact Neuro- alert, oriented x 3; CN 2-12 grossly intact; motor 5/5 bilaterally;sensation 100% on all extremities; no other gross focal neurologic deficits Skin- warm & dry Principal Diagnosis Left proximal ureteral stone with hydronephrosis and obstructive uropathy Discharge Exam Constitutional WD/WN, vitals as above Respiratory normal respiratory effort, lungs clear to auscultation Cardiovascular Rate/Rhythm: regular rate and regular rhythm Gastrointestinal (Abdomen) Percussion/Palpation: abdomen soft; abdomen nontender Skin no rashes, warm and dry Neurologic no focal motor deficits Psychiatric A+Ox3, euthymic affect Genitourinary no CVA tenderness Discharge Data Allergies Allergy/AdvReac Type Severity Reaction Status Date / Time Penicillins AdvReac Intermediate Rash Verified 06/22/21 14:25 Sulfa (Sulfonamide AdvReac Intermediate Rash Verified 06/22/21 14:25 Antibiotics) Consultations Urology Procedures Performed Operation Date: 06/23/21 12:00 Actual Procedures p Left Ureteral Stent Insertion, cystoscopy,(Left) - Trevon Mai MD s cystolitholopaxy (Left) - Trevon Mai MD Ordered Studies 06/22/21 CT abd/pelvis IMPRESSION: 1. Obstructive stone in the proximal left ureter with marked left hydronephrosis and hydroureter. A stone is also seen in the dependent portion of the bladder which likely reflects recently passed stone. 2. Large stool burden. 06/22/21 Gallbladder US IMPRESSION: 1. No evidence of acute cholecystitis. Prominent gallbladder, no evidence of wall thickening or Arvizu's sign. Mobile gallstone is noted. 2. Common duct measures 0.9 cm in diameter, slightly dilated for age. Hospital Course (1) Calculus of proximal left ureter: 66-year-old male with history of hypertension, dyslipidemia, GERD, BPH, kidney stones, migraine, peripheral artery disease on Xarelto who presented with left flank pain. LEFT PROXIMAL URETERAL STONE, 4 MM WITH HYDRONEPHROSIS AND HYDROURETER ACUTE RENAL FAILURE ON CHRONIC KIDNEY DISEASE STAGE III Baseline creatinine 1.6 --> 2.17 --> improved to 1.53 on 06/24 Status post Left Ureteral Stent Insertion, cystoscopy, cystolitholopaxy(Left) with Dr. Mai on 06/23 Started on Flomax Urine culture negative, received empiric IV ceftriaxone Will need outpatient follow-up with urology for definitive stone treatment. Appointment made with Dr. Alexandro Brasher per patient request. HYPERTENSION Continue atenolol HISTORY OF PERIPHERAL ARTERY DISEASE, RIGHT LOWER EXTREMITY ASA and Xarelto held in light of urologic procedure, resuming on discharge HISTORY OF DEPRESSION/ANXIETY On sertraline delayed entry date of service noted above Attending Addendum: care coordinated with PRIYA Cooper please refer to her notes for full details, I agree with her notes patient seen and examined, records reviewed by myself as well on exam, patient seen resting in bed, comfortable no abdominal pain, urinary symptoms, fever/chills no chest pain, dyspnea, palpitations, dizziness no other symptoms VS noted and reviewed oriented x 3 , not in distress, speaks in sentences with no effort nor accessory muscle use normal rate, regular rhythm, no murmurs clear breath sounds bilaterally non distended, soft, nontender no bipedal edema, erythema, warmth no neuro deficits labs: all noted and reviewed including below ASSESSMENT AND PLAN LEFT URETERAL STONE s/p stent placement crea back to baseline ff up with Urology UTI ruled out d/c antibiotics other diagnoses and plan of care as per PRIYA Cooper's notes Sanket Dyer MD Total Time Total Time Spent Total Time Spent (In Minutes): 35 Discharge Plan Discharge Items Patient Disposition: Home - Self-Care Reason For Visit: Back Pain Discharge Diagnosis: Kidney Stone Condition on Discharge: Good Activity: As commented below Lifting: No more than 10 pounds Non-emergency contact: Primary Care Provider and Urologist Call non-emergency contact if: you have any medication questions, your symptoms worsen, your pain is not controlled and you have a fever Follow-up/Referrals: Alexandro Brasher MD [Family Provider] - 07/12/21 10:45 am ([facility]) Balaji Perez MD [Outside Practitioners] - 07/01/21 11:00 am (covering for Dr. Ireland) Diet: Heart Healthy Addtl Attending Provider Instructions: You were admitted to the hospital for a kidney stone. You underwent a cystoscopy and stent placement. You will need to follow-up with urology. Per your request, an appointment has been made with Dr. Alexandro Brasher at his [facility] office. You were also prescribed tamsulosin (Flomax), this will help with stent pain. You were also previously prescribed hydrocodone/acetaminophen. You may also use this for pain however cautiously. Please keep follow-up appointments as scheduled. Continue all other home medications as prescribed. While you have a ureteral stent in place: Some discomfort is normal. Certain movements may trigger pain or a feeling that you need to urinate. You may also feel mild soreness or pressure before or during urination. These symptoms should go away a few days after the stent is removed. Your urine may be slightly pink or red. This is due to bleeding caused by minor irritation from the stent. This may happen on and off while you have the stent, it is not harmful and is to be expected. Medication to help minimize discomfort or bladder spasms, or to prevent infection may be prescribed. Take this as directed. Drink plenty of fluids to help flush out your urinary tract. If you go home with a catheter, wash with soapy water and a fresh washcloth twice daily. We recommend mild bar soap such as Dial or Dove. When to call [facility] at [phone]: Your urine contains heavy blood clots You are constantly leaking urine Fever of 101F or higher, chills, nausea, or vomiting Your pain is not relieved with medication The end of the stent comes out of your urethra. Keep follow-up with your established urologist as scheduled for definitive stone treatment. Pending Studies at Discharge: No Stand-Alone Forms: [facility] [employer], Smoking Cessation Medications and DC Order Prescriptions: New hydrocodone-acetaminophen 5-325 mg tablet 1 tab PO Q4H PRN (Reason: pain) Qty: 15 RF: 0 tamsulosin 0.4 mg Capsule 0.4 mg PO QAM Qty: 30 RF: 0 Continued sumatriptan succinate 100 mg tablet 100 mg PO DAILY PRN (Reason: Migraine Headache) RF: 0 sertraline 100 mg tablet 100 mg PO DAILY RF: 0 atenolol 25 mg tablet 25 mg PO DAILY RF: 0 montelukast 10 mg tablet 10 mg PO DAILY RF: 0 fluticasone propionate 50 mcg/actuation spray,suspension 1 spray INTRANASAL DAILY RF: 0 finasteride 5 mg tablet 5 mg PO DAILY RF: 0 Xarelto 20 mg tablet 20 mg PO DAILY RF: 0 Discontinued prednisone 20 mg tablet 20 mg PO DAILY RF: 0 Discharge Orders: Discharge Order (Routine); Ordered 06/24/21 Ordered By: Liana Arredondo/Other Patient Handouts: Understanding Kidney Stones Admission Data Admit Date/Time: 06/22/21 11:29 Attending Provider: Sanket Dyer Admit Provider: Sanket Dyer Primary Care Provider: Joann Ireland Other Providers: Sanket Dyer ; Trevon Mai Other Interventions: Discharge Summary Assessment (RN) Last Done: 06/24/21 16:20
[2021-07-04 11:22] LABS: Source STONE
== END 2021-06-24 16:50 | disposition home or self-care (01) | DRG 661 ==
LOC: ED 05:18 → EDINP 11:29 → 3N 13:51

== ENCOUNTER 2021-10-28 23:05 | Inpatient (IN) ==
[2021-10-28] MEDS ORDERED: ONDANSETRON INJ 2 MG/ML 2 ML VIAL IV STA (23:34)
[2021-10-28] MEDS ORDERED: SODIUM CHLORIDE 0.9% 1000ML 1,000 ML IV SCH (23:45)
[2021-10-29] MEDS: MoRPHine SULFATE 4 MG/ML 1 ML CARP\\VIAL IV PRN ×4 (00:01→06:34)
--- NOTE | 2021-10-29 00:01 | History & Physical Report ---
Date of Service October 28, 2021 Assessment & Plan (1) Abdominal pain: Plan: Due to the need for pain control we will admit the patient to the hospital proceeding as follows: Analgesic will be provided Antiemetics will be provided We will hydrate the patient gently with IV fluids I suspect the patient's pain is likely due to to surgical pain from his recent surgery along with some retained intraperitoneal air. I suspect that the CT scan and chest x-ray findings of the free intraperitoneal air or merely just retained gas from his surgical procedure. It should be noted that the patient did receive some intravenous morphine while in the emergency department with some relief of his symptoms. I discussed with the patient his options and it was felt by the patient and his family they would feel more comfortable if he remained hospitalized for the present time to ensure he has adequate pain control before return home. Will notify Dr. Tobar of the patient's admission in the morning. Will use SCDs for DVT prevention Will be a level 1 full code History of Present Illness Chief Complaint: Abdominal pain Primary Care Provider: Balaji Perez MD This is a 66-year-old male who underwent a laparoscopic cholecystectomy by Dr. Tobar on 10/28/2021. The patient was discharged home the same day as his proced ure. Operative note was reviewed and patient successfully underwent cholecystectomy via laparoscopic technique however abdominal adhesions were noted. The patient called the answering service of the surgical department at approximately 8:30 PM complaining of significant pain despite use of prescribed analgesics. The patient was advised to come the emergency department if his pain was unbearable and he ultimately presented to the emergency department later that evening. At the time of my exam the patient was complaining of pain near his surgical incisions but this appeared to be greatest near his umbilical incision. He notes that he did not eat much since his surgery as he just does not have much of an appetite. He does not report any dysuria. He has not reported any nausea vomiting. Since his surgery he has not passed any flatus and has not had a bowel movement. In the emergency department the patient had labs and imaging which I independently reviewed. He did have a chest x-ray that did show some free air under the right hemidiaphragm. He also had a CT scan of the abdomen and pelvis that showed findings consistent with a recent laparoscopic cholecystectomy with some free gas along the anterior peritoneal service had some soft tissue emphysema. No other acute findings were noted. Labs include a CBC her white blood cell count was 1.5. His hemoglobin and hematocrit were 12.2 and 40.0. Platelet count was normal. Chemistry profile showed sodium, potassium, and creatinine were normal. BUN was slightly elevated at 25. There is no significant elevation of his bilirubin or transaminases. His alkaline phosphatase had a slight elevation of 111. Lipase was not elevated. At the time of my interview the patient was complaining of persistent abdominal pain. Allergies Allergy/AdvReac Type Severity Reaction Status Date / Time Penicillins AdvReac Intermediate Rash Verified 10/28/21 07:51 Sulfa (Sulfonamide AdvReac Intermediate Rash Verified 10/28/21 07:51 Antibiotics) Home Medications Medication Instructions Recorded Confirmed Type atenolol 25 mg tablet 25 mg PO DAILY 06/22/21 10/29/21 History finasteride 5 mg tablet 5 mg PO DAILY 06/22/21 10/29/21 History fluticasone propionate 50 1 spray INTRANASAL DAILY 06/22/21 10/29/21 History mcg/actuation nasal spray,suspension hydrocodone 5 mg-acetaminophen 325 1 tab PO Q4H PRN #15 tab 06/22/21 10/29/21 Rx mg tablet montelukast 10 mg tablet 10 mg PO DAILY 06/22/21 10/29/21 History rivaroxaban 20 mg tablet (Xarelto) 20 mg PO DAILY 06/22/21 10/29/21 History sertraline 100 mg tablet 100 mg PO DAILY 06/22/21 10/29/21 History sumatriptan succinate 100 mg tablet 100 mg PO DAILY PRN 06/22/21 10/29/21 History tamsulosin 0.4 mg capsule 0.4 mg PO QAM #30 cap 06/24/21 10/29/21 Rx oxycodone-acetaminophen 5 mg-325 1 tab PO Q6H PRN #20 tab 10/28/21 10/29/21 Rx mg tablet (Percocet) Past Med/Surg History Medical History Anemia, iron deficiency BPH (benign prostatic hyperplasia) CKD (chronic kidney disease) stage 3, GFR 30-59 ml/min Depression with anxiety Dyslipidemia GERD (gastroesophageal reflux disease) History of kidney stones HTN (hypertension) Migraine PVD (peripheral vascular disease) On Xarelto per records Surgical History S/P cystoscopy with ureteral stent placement Social History Smoking Status: Never smoker Second Hand Exposure: No; Hx Alcohol Use: No Hx Substance Use: No Preferred Language: Portuguese Communication Ability: Effective Manager Labor Delivery Required: No Beliefs That Will Affect Care: None Current Living Situation: Spouse Other Information That Helps Us Care for You: No Feels Safe at Home: Yes Safety Concerns: Feels Safe At This Time Assistive Devices: Denture - Upper, Denture - Lower and Walker Review of Systems Constitutional: no fever and no chills Eyes: no diplopia Ear, Nose, Mouth, Throat: no ear pain Respiratory: no cough Cardiovascular: no chest pain Gastrointestinal: as per Subjective / HPI and + abdominal pain; no nausea and no vomiting Genitourinary: no dysuria Musculoskeletal: no back pain Integumentary: no rash Neurologic: no localized weakness Physical Exam Constitutional: well developed and well nourished; + uncomfortable Eyes: no conjunctival abnormality ENMT: Ears: no hearing impairment Mouth: no oropharynx abnormality Neck: trachea midline Respiratory: normal respiratory effort; no respiratory distress and no labored breathing Cardiovascular: Rate/Rhythm: regular rate and regular rhythm Gastrointestinal (Abdomen): Abdomen is nondistended. The patient did have pain with palpation near all of his incisions but this appeared to be greatest near the umbilical incision. I did not appreciate any hernias. His incisions are covered with dressings. Bowel sounds were hypoactive to absent. Musculoskeletal: No calf tenderness Skin: no rashes Neurologic: moves all extremities Psychiatric: A+Ox3, euthymic affect Results & Data Results & Data ([facility]) Vital Signs (Past 12 Hours) Vital Signs Temp Pulse Resp BP Pulse Ox 10/28/21 23:06 36.5 C 126 H 16 152/104 H 100 Supervising Physician Co-Signing Physician Notes Patient discussed with Wilfred Dav overnight, labs and imaging reviewed, agree with above. 66-year-old male presented 12 hours after laparoscopic cholecystectomy with extensive lysis of adhesions with abdominal pain. He initially was afebrile with stable vitals. His abdominal exam showed some mild tenderness per Mr. Demarco but was otherwise benign. His white blood cell count was low but other labs were normal. His CT intraperitoneal air and fluid at that could be consistent with postoperative state, however there was also concern for a bile leak. The patient was admitted to the floor for pain control. Throughout the night he continued to have mild decompensation in his vital signs. Further imaging was obtained with a CT chest. Hospitalist were engaged and assisted with the care of the patient. The patient was then turned over to the care of Dr. Tobar first thing this morning. At the time of my discussion with Mr. Demarco there was no emergent surgical indication, however he did continue to worsen throughout the night warranting surgical exploration today by Dr. Tobar. PG Care Time/CCT Total # of Minutes Spent Total Time Spent with Patient: Total time spent is greater than 50% in coordination of care (as documented) at patient's floor/unit and/or counseling patient: Coding Level of Care Code None Diagnoses Abdominal pain R10.9
[2021-10-29 00:53] LABS: Alanine Aminotransferase 26 U/L (7-52); Albumin Globulin Ratio 1.6 (0.9-2); Albumin Level 4.1 gm/dl (3.4-5.0); Alkaline Phosphatase 111 U/L (34-104); Anion Gap 9 (3-11); Aspartate Aminotransferase 25 U/L (13-39); Bilirubin,Total 0.4 mg/dl (0.2-1.0); Blood Urea Nitrogen 25 mg/dl (6-23); Calcium 8.8 mg/dl (8.5-10.1); Carbon Dioxide 25 mmol/L (21-32); Chloride 106 mmol/L (98-107); Est GFR (African American) 59.9 ml/min; Est GFR (Non-African American) 51.7 ml/min; Globulin 2.5 gm/dl (2.5-4.0); Glucose 139 mg/dl (70-99(Fasting)); Lipase 7 U/L (11-82); Potassium 4.4 mmol/L (3.5-5.1); Sodium 140 mmol/L (136-145); Total Protein 6.6 gm/dl (6.0-8.3)
[2021-10-29 01:08] LABS: Hemoglobin 12.2 g/dL (14.0-18.0); Lymphocytes # (auto) 0.23 K/uL (1.2-3.4); Lymphocytes % (auto) 14.6 %; Mean Corpuscular Hemoglobin 29.7 pg (25-34); Mean Corpuscular Hgb Conc 30.5 g/dL (32-36); Mean Corpuscular Volume 97.3 fL (80-100); Mean Platelet Volume 10.7 fL (7.4-10.4); Monocytes # (auto) 0.05 K/uL (0.11-0.59); Monocytes % (auto) 3.2 %; Neutrophils # (auto) 1.29 K/uL (1.4-6.5); Neutrophils % (auto) 82.2 %; Platelet Count 355 K/uL (130-400); RDW Coefficient of Variation 13.9 % (11.5-14.5); Red Blood Count 4.11 M/uL (4.7-6.1); White Blood Count 1.57 K/uL (4.8-10.8)
[2021-10-29] MEDS ORDERED: ONDANSETRON INJ 2 MG/ML 2 ML VIAL IV PRN ×2 (01:39→08:05)
[2021-10-29] MEDS ORDERED: LACTATED RINGER'S 1,000 ML IV SCH ×2 (01:45→05:45)
--- NOTE | 2021-10-29 05:42 | Communication Note ---
Date of Service: October 29, 2021 Pt. admitted earlier this shift secondary to abdominal pain s/p lap narinder. I was called by RN that pt. was tachycardiac with intermittent hypoxia and letharg y. I revisited pt. He was some what lethargic but easily arousable. He was alert to time, place, person. BP running aabout 110 systolic. HR 115-125 and regular. Pulse ox was 92 on 3 liters via FM. Abdomen is non-distended but firm and TTP at surgical incisions. Pt. also has some suprapubic discomfort (has not voided since arrival). BS are present bilaterally. Pt. notes history of DVT for which he take xarelto which he noted was held prior to surgery. Due to the above an EKG was obtained--showed sinus tachy without ischemic changes. Will obtain additional labs--CBC, CMP, lipase, coags, trop, Mg, ABG -Requested medical consult and discussed with Dr. Kothari of [facility]--he suggested adding abx. as admit WBC was low raising concern for sepsis. Will start invanz (pt. has PCN allergy--causes rash). will also obtain CT scan of chest to evaluate for PE in light of hx. of DVT. Will transfer to tele for closer monitoring
[2021-10-29 05:50] LABS: Hematocrit (blood only) 38.9 % (42-52); Hemoglobin 11.8 g/dL (14.0-18.0); Mean Corpuscular Hemoglobin 29.3 pg (25-34); Mean Corpuscular Volume 96.5 fL (80-100); Mean Platelet Volume 10.6 fL (7.4-10.4); Platelet Count 341 K/uL (130-400); RDW Standard Deviation 49.8 fL (36.4-46.3); Red Blood Count 4.03 M/uL (4.7-6.1); White Blood Count 1.25 K/uL (4.8-10.8)
[2021-10-29 05:52] LABS: Mean Corpuscular Hgb Conc 30.3 g/dL (32-36)
[2021-10-29 05:54] LABS: Base Excess ABG -4.9 mEq/L (-9-1.8); HCO3 ABG 20 mmol/L (19-24); Oxygen Saturation ABG 98.3 % (90-95); PCO2 ABG 37 mmHg (35-46); PO2 ABG 118 mmHg (80-95); pH ABG 7.35 (7.35-7.45)
[2021-10-29 05:59] LABS: INR 1.1 (0.9-1.1); Partial Thromboplastin Ratio 0.8; Partial Thromboplastin Time 21.6 Seconds (21.0-31.0); Prothrombin Time 11.5 Seconds (9.0-12.0)
[2021-10-29] MEDS ORDERED: ERTAPENEM SODIUM 1,000 MG in SYRINGE 0 ML IV SCH (06:00)
[2021-10-29 06:14] LABS: Allen Test Pos (Pos)
[2021-10-29 06:14] LABS: Troponin I High Sensitivity 38.7 pg/ml (0-20)
[2021-10-29] MEDS ORDERED: SODIUM CHLORIDE 0.9% 1000ML 1,000 ML IV SCH ×2 (06:15→07:15)
[2021-10-29 06:54] LABS: Alanine Aminotransferase 20 U/L (7-52); Albumin Globulin Ratio 1.6 (0.9-2); Albumin Level 3.3 gm/dl (3.4-5.0); Alkaline Phosphatase 76 U/L (34-104); Anion Gap 8 (3-11); Aspartate Aminotransferase 20 U/L (13-39); BUN Creatinine Ratio 17.2 (10-20); Bilirubin,Total 0.3 mg/dl (0.2-1.0); Blood Urea Nitrogen 29 mg/dl (6-23); Carbon Dioxide 21 mmol/L (21-32); Chloride 112 mmol/L (98-107); Est GFR (African American) 47.3 ml/min; Est GFR (Non-African American) 40.8 ml/min; Globulin 2.1 gm/dl (2.5-4.0); Glucose 110 mg/dl (70-99(Fasting)); Lipase 31 U/L (11-82); Magnesium 1.4 mg/dl (1.7-2.4); Potassium 3.5 mmol/L (3.5-5.1); Sodium 141 mmol/L (136-145); Total Protein 5.4 gm/dl (6.0-8.3)
[2021-10-29] MEDS ORDERED: OPTIRAY 320 125ml IV ONE (06:59)
--- NOTE | 2021-10-29 07:14 | Communication Note ---
Date of Service: October 29, 2021 Patient transferred to [facility] to telemetry for closer monitoring .Patient's repeat labs showed a white blood cell count of 1.25. His hemoglobin and hematocrit are 11.8 and 38.9. Platelet count is within the normal range. His coagulation studies are noted to be normal. ABG showed a pH of 7.35, PCO2 of 37, PO2 of 118, and bicarb level of 20. Chemistry profile showed sodium and potassium are both normal. BUN and creatinine were 29 and 1.6. Lactic acid level came back at 3.9 which was elevated. Lipase is noted to be normal. There is no significant elevation of LFTs. Troponin level was elevated at 38.7. Since my initial visit with the patient Velazquez catheter was placed and a urinalysis was sent. CT scan of the chest for pulmonary embolism is was pursued and is currently pending at this time. The patient was placed on broad-spectrum antibiotics in form of Invanz and made n.p.o. and placed on IV fluids. I discussed with Dr. Tobar who will assume the patient's care at this time. Notes that the patient did have some adhesions at the time of surgery so while the free air noted in his abdominal CAT scan may have been residual air from the his surgical procedure he is considering taking the patient to the operating room for exploration.
[2021-10-29 07:16] LABS: Appearance Urine Clear (Clear); Bacteria Urine Automated Negative (Negative); Bilirubin Urine Negative (Negative); Blood Urine 2+ (Negative); Cast Urine Automated 0 /lpf (0-5); Color Urine Yellow; Epithelial Cell Urine Auto 0-5 /lpf (0-5); Glucose Urine UA Negative (Negative); Ketones Urine Negative (Negative); Leukocyte Esterase Urine Negative (Negative); Nitrite Urine Negative (Negative); Protein Urine 2+ (Negative); Specific Gravity Urine 1.016 (1.000-1.030); Urobilinogen Urine Negative (Negative); pH Urine 5.5 (4.5-7.5)
--- NOTE | 2021-10-29 07:16 | CT Scan Report ---
CT ANGIOGRAM OF THE CHEST CLINICAL HISTORY: Dyspnea. Recent surgery para COMPARISON STUDY: Chest x-ray dated 10/29/2021. TECHNIQUE: Following the IV administration of 120 cc of Optiray 320, CT angiogram of the chest was pe rformed from the upper abdomen to the thoracic inlet utilizing the pulmonary embolus protocol. Images are reviewed in the axial, sagittal, and coronal planes. 3-D MIPS images are created and assessed. I V contrast was administered without complication. A dose lowering technique was utilized adhering to the principles of ALARA. The examination is severely degraded by motion artifact, as well as by stre ak artifact from the arms which could not be elevated above the chest. CT DOSE: 306.43 mGy.cm FINDINGS: Thyroid: Imaged portions of the thyroid gland are normal in size and attenuation. Thoracic aorta: There is atherosclerotic calcification of the thoracic aorta. There is aneurysmal dil atation of the ascending thoracic aorta which measures up to 4.5 cm in diameter. The remainder of the thoracic aorta is normal in caliber and the arch demonstrates 4-vessel very anatomy. No dissection i s seen. Pulmonary vasculature: The pulmonary trunk is normal in caliber. There are no filling defects identif ied in main, lobar, or segmental pulmonary branches to suggest pulmonary embolus. Heart: The heart is enlarged and without pericardial effusion. There are scattered coronary artery ca lcifications. Lungs and pleural spaces: Evaluation of the lung parenchyma is compromised by motion artifact. There are small pleural effusions, right larger than left with dependent consolidation. The trachea and darlene tral airways appear clear. Mediastinum: There is no mediastinal lymphadenopathy. Esophagus: Esophagus is mildly distended and filled with fluid to the level of the thoracic inlet. Cally: Clear. Axillae: There is no axillary lymphadenopathy. Upper abdomen: Surgical clips are noted in the upper abdomen. Intraperitoneal free air is seen below the diaphragm. There is perihepatic and perisplenic free fluid. Skeletal structures: The skeletal structures are osteopenic. Degenerative change and kyphoscoliosis a re noted in the thoracic spine. No lytic or blastic bony lesions are seen. There are numerous healed right-sided rib fractures. Soft tissues: There are foci of soft tissue gas within the right chest wall and in the right axilla. IMPRESSION: 1. Significantly streak and motion compromised examination. 2. There is no evidence of pulmonary embolus in the main, lobar, or segmental pulmonary arteries. 3. Intraperitoneal free air is seen below the diaphragm. This is nonspecific and may be related to th e reported history of recent surgery. Clinical correlation will be essential. 4. Right larger than left pleural effusions with dependent airspace consolidation. This could represe nt atelectasis versus pneumonia/aspiration pneumonitis. Clinical correlation will be required and rad iographic follow-up to resolution is recommended. 5. Cardiomegaly. 6. There is aneurysmal dilatation of the ascending thoracic aorta which measures up to 4.5 cm in diam eter. 7. Subcutaneous emphysema is seen in the right chest wall and the right axilla. Clinical correlation will be required. 8. Free fluid is seen in the upper abdomen. 9. The esophagus is mildly distended and filled with fluid to the level of the thoracic inlet. Note t hat this may place the patient at risk for aspiration. 10. Additional findings as above. ACT 112: Negative or not required by law. Electronically signed by: Shelton Francisco M.D. 10/29/2021 7:15 AM
[2021-10-29 07:24] LABS: Immature Granulocytes # (auto) 0.01 K/uL (0.00-0.02); Immature Granulocytes % (auto) 0.8 %; Lymphocytes # (auto) 0.25 K/uL (1.2-3.4); Monocytes # (auto) 0.17 K/uL (0.11-0.59); Monocytes % (auto) 13.6 %; Neutrophils # (auto) 0.82 K/uL (1.4-6.5); Neutrophils % (auto) 65.6 %
[2021-10-29] MEDS ORDERED: fentaNYL citrate 100 MCG/2 ML VIAL ONE ×2 (07:27→09:25)
[2021-10-29] MEDS ORDERED: MIDAZOLAM HCL 1 MG/ML 2ML VIAL ONE (07:27)
[2021-10-29] MEDS ORDERED: PROPOFOL IV EMULSION 10 MG/ML 20 ML VIAL IV ONE (07:27)
[2021-10-29] MEDS ORDERED: ROCURONIUM BROMIDE 10 MG/ML 5 ML VIAL IV ONE ×5 (07:27→08:39)
[2021-10-29] MEDS ORDERED: LIDOCAINE 2% 2 ML VIAL/AMP(20MG/ML) INFIL ONE (07:27)
[2021-10-29] MEDS ORDERED: ONDANSETRON INJ 2 MG/ML 2 ML VIAL ONE (07:28)
--- NOTE | 2021-10-29 07:35 | Emergency Department Note ---
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 The patient had outpatient cholecystectomy performed at this facility earlier in the day by Dr Tobar. He had some minor pain at discharge, but this has significantly worsened over the past 2 to 3 hours. The patient rates his discomfort at a very high level that is not improved with oxycodone. The patient now returns to the hospital for further evaluation. He has not had distinct fever at home. Home Medications Medication Instructions Recorded Confirmed Type atenolol 25 mg tablet 25 mg PO DAILY 06/22/21 10/29/21 History finasteride 5 mg tablet 5 mg PO DAILY 06/22/21 10/29/21 History fluticasone propionate 50 1 spray INTRANASAL DAILY 06/22/21 10/29/21 History mcg/actuation nasal spray,suspension hydrocodone 5 mg-acetaminophen 325 1 tab PO Q4H PRN #15 tab 06/22/21 10/29/21 Rx mg tablet montelukast 10 mg tablet 10 mg PO DAILY 06/22/21 10/29/21 History rivaroxaban 20 mg tablet (Xarelto) 20 mg PO DAILY 06/22/21 10/29/21 History sertraline 100 mg tablet 100 mg PO DAILY 06/22/21 10/29/21 History sumatriptan succinate 100 mg tablet 100 mg PO DAILY PRN 06/22/21 10/29/21 History tamsulosin 0.4 mg capsule 0.4 mg PO QAM #30 cap 06/24/21 10/29/21 Rx oxycodone-acetaminophen 5 mg-325 1 tab PO Q6H PRN #20 tab 10/28/21 10/29/21 Rx mg tablet (Percocet) Allergies Allergy/AdvReac Type Severity Reaction Status Date / Time Penicillins AdvReac Intermediate Rash Verified 10/28/21 07:51 Sulfa (Sulfonamide AdvReac Intermediate Rash Verified 10/28/21 07:51 Antibiotics) Past Med/Surg History Medical History Anemia, iron deficiency BPH (benign prostatic hyperplasia) CKD (chronic kidney disease) stage 3, GFR 30-59 ml/min Depression with anxiety Dyslipidemia GERD (gastroesophageal reflux disease) History of kidney stones HTN (hypertension) Migraine PVD (peripheral vascular disease) On Xarelto per records Surgical History S/P cystoscopy with ureteral stent placement Social History Smoking Status: Never smoker Second Hand Exposure: No; Hx Alcohol Use: No Hx Substance Use: No Preferred Language: Ug[place]an Communication Ability: Effective 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 Beliefs That Will Affect Care: None Current Living Situation: Spouse Feels Safe at Home: Yes Assistive Devices: Denture - Upper, Denture - Lower, Glasses and Hearing Aid - Bilateral Review of Systems A total of 10 systems reviewed and were otherwise negative Physical Exam Vital Signs Vital Signs - 24 hr 10/28/21 23:06 10/29/21 00:37 10/29/21 00:38 Temperature 36.5 C Temperature Source Oral Pulse Rate 126 H Pulse Rate [Right Finger] 126 H Pulse Rhythm [Right Finger] Regular Pulse Strength [Right Finger] Normal Respiratory Rate 16 30 H Respiratory Effort / Characteristics Non-Labored Spontaneous Non-Labored Spontaneous Respiratory Depth Normal Normal Respiratory Pattern Tachypnea Blood Pressure 152/104 H Blood Pressure [Right Arm] 165/109 H Blood Pressure Mean 120 Blood Pressure Mean [Right Arm] 127 Blood Pressure Position [Right Arm] Lying Pulse Oximetry 100 87 L 97 Oxygen Delivery Method Room Air Room Air Nasal Cannula Oxygen Flow Rate 3 Sepsis Recent Fever Within 48 Hours No Sepsis New/Unexplained Change in Mental Status N/A Sepsis Action Taken by Nursing No Action Required 10/29/21 01:36 Temperature Temperature Source Pulse Rate Pulse Rate [Right Finger] 128 H Pulse Rhythm [Right Finger] Regular Pulse Strength [Right Finger] Normal Respiratory Rate 24 Respiratory Effort / Characteristics Non-Labored Spontaneous Respiratory Depth Normal Respiratory Pattern Regular Blood Pressure Blood Pressure [Right Arm] 156/103 H Blood Pressure Mean Blood Pressure Mean [Right Arm] 120 Blood Pressure Position [Right Arm] Lying Pulse Oximetry 92 Oxygen Delivery Method Nasal Cannula Oxygen Flow Rate 3 Sepsis Recent Fever Within 48 Hours Sepsis New/Unexplained Change in Mental Status Sepsis Action Taken by Nursing VITALS: Vitals are noted on the nurse's note and reviewed by myself. Vital signs with tachycardia. GENERAL: Well-developed, well-nourished, male, who is in moderate discomfort upon my arrival to the room. He is laying on his left side in the ER bed and seems quite uncomfortable when rolling onto his back. HEAD: Normocephalic atraumatic. HEART: Tachycardic rate with regular rhythm LUNGS: Generally clear with questionable diminished sounds to the right lower lobe ABDOMEN: Positive normal bowel sounds x 4. Nonspecific generalized tenderness on gentle palpation. Surgical trocar sites appear well bandaged and without significant drainage or discharge. MUSCULOSKELETAL: No muscle atrophy, erythema, or edema noted. Full range of motion in all extremities. Course Administered Medications Lactated Ringer's (Lr) 1,000 mls @ 100 mls/hr IV .Q10H YIFAN Stop: 11/28/21 05:44 Last Admin: 10/29/21 06:17 Dose: 100 mls/hr Documented by: [id number] Ertapenem 1,000 mg/ Syringe 10 mls @ 2 mls/min IV Q24H YIFAN Stop: 11/08/21 05:59 Last Admin: 10/29/21 06:17 Dose: 2 mls/min Documented by: [id number] Morphine Sulfate (Morphine Sulfate 4 Mg/Ml 1 Ml Carp\Vial) 3 mg IV Q3H PRN PRN Reason: Pain Stop: 11/12/21 01:38 Last Admin: 10/29/21 06:34 Dose: 3 mg Documented by: [id number] Admin: 10/29/21 02:29 Dose: 3 mg Documented by: [id number] Discontinued Medications Sodium Chloride (Nss 1000ml) 1,000 mls @ 999 mls/hr IV .Q1H1M YIFAN Stop: 10/29/21 00:45 Last Infusion: 10/29/21 02:44 Dose: 0 mls/hr Documented by: [id number] Admin: 10/29/21 00:36 Dose: 999 mls/hr Documented by: [id number] Lactated Ringer's (Lr) 1,000 mls @ 50 mls/hr IV .Q20H YIFAN Stop: 11/28/21 01:44 Last Infusion: 10/29/21 06:05 Dose: 0 mls/hr Documented by: [id number] Admin: 10/29/21 02:31 Dose: 50 mls/hr Documented by: [id number] Ioversol (Optiray 320 125ml) 120 ml IV ONCE ONE Stop: 10/29/21 07:00 Last Admin: 10/29/21 06:59 Dose: 120 ml Documented by: [id number] Morphine Sulfate (Morphine Sulfate 4 Mg/Ml 1 Ml Carp\Vial) 4 mg IV Q30M PRN PRN Reason: Pain Stop: 11/11/21 23:33 Last Admin: 10/29/21 00:40 Dose: 4 mg Documented by: [id number] Admin: 10/29/21 00:01 Dose: 4 mg Documented by: [id number] Ondansetron HCl (Ondansetron Inj 2 Mg/Ml 2 Ml Vial) 4 mg IV NOW STA Stop: 10/28/21 23:35 Last Admin: 10/29/21 00:01 Dose: 4 mg Documented by: [id number] Medical Decision Making Differential Diagnosis Differential diagnosis: Etiologies such as biliary colic, cholecystitis, hepatitis, pancreatitis, cardiac disease, pancreatitis, gastritis, peptic ulcer disease, appendicitis, cystitis, diverticulitis, mesenteric ischemia, inflammatory bowel disease, ileus, bowel obstruction, testicular/adnexal torsion, aortic pathology, shingles, as well as others were considered Laboratory Data Result diagrams: 10/29/21 05:20 10/29/21 05:20 Lab Results 10/29/21 10/29/21 10/29/21 Range/Units 00:00 00:00 01:15 WBC 1.57 L (4.8-10.8) K/uL RBC 4.11 L (4.7-6.1) M/uL Hgb 12.2 L (14.0-18.0) g/dL Hct 40.0 L (42-52) % MCV 97.3 (80-100) fL MCH 29.7 (25-34) pg MCHC 30.5 L (32-36) g/dL RDW Std Deviation 49.0 H (36.4-46.3) fL RDW Coeff of So 13.9 (11.5-14.5) % Plt Count 355 (130-400) K/uL MPV 10.7 H (7.4-10.4) fL Immature Gran % (Auto) 0.0 % Neut % (Auto) 82.2 % Lymph % (Auto) 14.6 % [place] % (Auto) 3.2 % Eos % (Auto) 0.0 % Baso % (Auto) 0.0 % Neut # (Auto) 1.29 L (1.4-6.5) K/uL Lymph # (Auto) 0.23 L (1.2-3.4) K/uL [place] # (Auto) 0.05 L (0.11-0.59) K/uL Eos # (Auto) 0.00 (0-0.5) K/uL Baso # (Auto) 0.00 (0-0.2) K/uL Immature Gran # (Auto) 0.00 (0.00-0.02) K/uL Sodium 140 (136-145) mmol/L Potassium 4.4 (3.5-5.1) mmol/L Chloride 106 (98-107) mmol/L Carbon Dioxide 25 (21-32) mmol/L Anion Gap 9 (3-11) BUN 25 H (6-23) mg/dl Creatinine 1.39 (0.6-1.4) mg/dl Est Cr Clr Drug Dosing Not Reportable Est GFR ( Amer) 59.9 ml/min Est GFR (Non-Af Amer) 51.7 ml/min BUN/Creatinine Ratio 18.0 (10-20) Glucose 139 H (70-99(Fasting)) mg/dl Calcium 8.8 (8.5-10.1) mg/dl Total Bilirubin 0.4 (0.2-1.0) mg/dl AST 25 (13-39) U/L ALT 26 (7-52) U/L Alkaline Phosphatase 111 H (34-104) U/L Total Protein 6.6 (6.0-8.3) gm/dl Albumin 4.1 (3.4-5.0) gm/dl Globulin 2.5 (2.5-4.0) gm/dl Albumin/Globulin Ratio 1.6 (0.9-2) Lipase 7 L (11-82) U/L SARS-CoV-2, RNA, NAAT NEGATIVE (NEGATIVE) Imaging Data Radiologist's Impression: Preliminary Findings Only See Final Report For Complete Findings CT ABDOMEN & PELVIS Without Contrast: Compare: 06/22/2021 1. No acute findings. 2. Changes likely from recent surgery w ith Right chest wall, anterior and lateral abdominal wall soft tissue emphysema Small right greater than left pleural effusion and basilar atelectasis. Free gas along the anterior peritoneal surface. Right-sided ascites. Please clinically correlate to exclude bile duct leak. 3. Postcholecystectomy changes. Incidentals Slightly atrophic appearance to the kidneys. Bilateral renal nonobstructive calcifications left greater than right. Anterior right kidney mid to upper pole 3.5 cm cyst. Epigastric surgical clips. Constipation. Slightly distended urinary bladder. Radiologist:Alexsander Sena, [facility][phone] [facility] Narrative Physical exam and history were performed. Nursing notes, EMR, and Medication List were personally reviewed. Patient appears to have abdominal pain bringing him to the ER. Patient appears quite uncomfortable on presentation. He did have outpatient cholecystectomy but is quite tender throughout the entirety of the abdomen. He is tachycardic which I suspect is from pain response. He is afebrile and 100% on room air. IV access was established and labs were obtained. The patient was hydrated normal saline and given IV morphine and IV Zofran. He was sent to CT scan for imaging of his abdomen and pelvis. I did reach out early to the surgical team, and spoke with Wilfred Demarco PA-C, who did evaluate the patient at bedside within a few minutes of the patient's presentation to this department. The patient's blood work is as above and was reviewed. He does not have a significantly elevated white blood cell count. His hemoglobin is 11.8. INR is 1.1. He does not have significant electrolyte imbalance. BUN is 29 and creatinine is 1.69. Transaminases are not diagnostic. Lipase is normal. COVID swab was performed and negative. CT scan was reviewed by myself and radiology and does show some postoperative findings but no distinct additional findings. Overall I do have concern for the patient's discomfort. He does not seem to be doing well postoperatively and does not seem safe for discharge home. The case was discussed with the surgical team, and they will bring him into the hospital for further management. Please see the hospital and surgical team's dictation for further patient course, plan, disposition. The chart was completed utilizing [employer] Voice Recognition Software. Grammatical errors, random word insertions, pronoun errors, and incomplete sentences are an occasional consequence of this system due to software limitations, ambient noise, and hardware issues. Any formal questions or concerns about the content, text, or information contained within the body of this dictation should be directly addressed to the provider for clarification. . 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
[2021-10-29] MEDS ORDERED: ALBUMIN HUMAN 5% 12.5 GM/250 ML VIAL IV ONE (07:36)
[2021-10-29] MEDS ORDERED: SUGAMMADEX SODIUM 200 MG/2 ML VIAL IV ONE (07:36)
[2021-10-29] MEDS: FLUTICASONE PROPIONATE NA SPR 16 GM BTL SCH (07:37)
--- NOTE | 2021-10-29 07:41 | Surgery Progress Note ---
Date of Service October 29, 2021 Assessment & Plan (1) Abdominal pain: Plan: pt is a S/P difficulty laparoscopic cholecystectomy, POD 1, pt came back to ER with severe abdominal pain, IMP: S/P laparoscopic cholecystectomy, POD 1, severe abdominal , possible bowel perforation, Plan, I recommend to do emergent exploratory laparotomy, possible bowel resection, stoma, D/W benefits, risks and alternatives of the surgery, the risks - infection, bleeding, sepsis, multiple organs failure, HI, DVT, stroke, and , pt understood, he agrees with the surgery, he signed informed consent, I answered all questions, I called pt's , no one answered the phone, will consult branch operation evaluation manager for high troponin 38, Admission and Anticipated Discharge Date Admission Date: October 29, 2021 Subjective pt is a S/P laparoscopic cholecystectomy, POD 1, pt came in to ER with severe abdominal pain last night,pt was admitted to hospital, pt is still have severe abdominal pain with HR 125, I reviewed pt's H/P, labs and CT scan, EKG with pt, Physical Exam Constitutional: distress Eyes: PERRL, conjunctivae normal, anicteric sclerae Neck: trachea midline, no thyromegaly Respiratory: normal respiratory effort, lungs clear to auscultation Cardiovascular: RRR, no murmur, no edema Gastrointestinal (Abdomen): rigid abdominal , tenderness at epigastric area, rebound pain +, no distend, BS -, Musculoskeletal: no cyanosis or clubbing, extremities motor strength 5/5 Neurologic: patellar DTR's 2+ bilat, sensation intact Psychiatric: A+Ox3, euthymic affect Results & Data ([facility]) Vital Signs (Past 12 Hours) Vital Signs Temp Pulse Pulse Resp BP BP Pulse Ox 10/29/21 03:30 125 H 25 H 109/71 96 10/29/21 01:36 128 H 24 156/103 H 92 10/29/21 00:38 97 10/29/21 00:37 126 H 30 H 165/109 H 87 L 10/28/21 23:06 36.5 C 126 H 16 152/104 H 100 Laboratory Results Abnormal lab results 10/29/21 10/29/21 10/29/21 Range/Units 00:00 00:00 05:20 WBC 1.57 L 1.25 L (4.8-10.8) K/uL RBC 4.11 L 4.03 L (4.7-6.1) M/uL Hgb 12.2 L 11.8 L (14.0-18.0) g/dL Hct 40.0 L 38.9 L (42-52) % MCHC 30.5 L 30.3 L (32-36) g/dL RDW Std Deviation 49.0 H 49.8 H (36.4-46.3) fL MPV 10.7 H 10.6 H (7.4-10.4) fL Neut # (Auto) 1.29 L 0.82 L* (1.4-6.5) K/uL Lymph # (Auto) 0.23 L 0.25 L (1.2-3.4) K/uL Butts # (Auto) 0.05 L (0.11-0.59) K/uL ABG pO2 (80-95) mmHg ABG O2 Saturation (90-95) % Chloride (98-107) mmol/L BUN 25 H (6-23) mg/dl Creatinine (0.6-1.4) mg/dl Glucose 139 H (70-99(Fasting)) mg/dl Lactate (0.4-2.0) mmol/L Calcium (8.5-10.1) mg/dl Magnesium (1.7-2.4) mg/dl Alkaline Phosphatase 111 H (34-104) U/L Troponin I High Sens (0-20) pg/ml Total Protein (6.0-8.3) gm/dl Albumin (3.4-5.0) gm/dl Globulin (2.5-4.0) gm/dl Lipase 7 L (11-82) U/L Urine Protein (Negative) Urine Blood (Negative) Urine RBC (Auto) (0-4) /hpf 10/29/21 10/29/21 10/29/21 Range/Units 05:20 05:35 06:01 WBC (4.8-10.8) K/uL RBC (4.7-6.1) M/uL Hgb (14.0-18.0) g/dL Hct (42-52) % MCHC (32-36) g/dL RDW Std Deviation (36.4-46.3) fL MPV (7.4-10.4) fL Neut # (Auto) (1.4-6.5) K/uL Lymph # (Auto) (1.2-3.4) K/uL Butts # (Auto) (0.11-0.59) K/uL ABG pO2 118 H (80-95) mmHg ABG O2 Saturation 98.3 H (90-95) % Chloride 112 H (98-107) mmol/L BUN 29 H (6-23) mg/dl Creatinine 1.69 H D (0.6-1.4) mg/dl Glucose 110 H (70-99(Fasting)) mg/dl Lactate 3.9 H* (0.4-2.0) mmol/L Calcium 8.0 L (8.5-10.1) mg/dl Magnesium 1.4 L (1.7-2.4) mg/dl Alkaline Phosphatase (34-104) U/L Troponin I High Sens 38.7 H (0-20) pg/ml Total Protein 5.4 L (6.0-8.3) gm/dl Albumin 3.3 L (3.4-5.0) gm/dl Globulin 2.1 L (2.5-4.0) gm/dl Lipase (11-82) U/L Urine Protein (Negative) Urine Blood (Negative) Urine RBC (Auto) (0-4) /hpf 10/29/21 Range/Units 06:10 WBC (4.8-10.8) K/uL RBC (4.7-6.1) M/uL Hgb (14.0-18.0) g/dL Hct (42-52) % MCHC (32-36) g/dL RDW Std Deviation (36.4-46.3) fL MPV (7.4-10.4) fL Neut # (Auto) (1.4-6.5) K/uL Lymph # (Auto) (1.2-3.4) K/uL Butts # (Auto) (0.11-0.59) K/uL ABG pO2 (80-95) mmHg ABG O2 Saturation (90-95) % Chloride (98-107) mmol/L BUN (6-23) mg/dl Creatinine (0.6-1.4) mg/dl Glucose (70-99(Fasting)) mg/dl Lactate (0.4-2.0) mmol/L Calcium (8.5-10.1) mg/dl Magnesium (1.7-2.4) mg/dl Alkaline Phosphatase (34-104) U/L Troponin I High Sens (0-20) pg/ml Total Protein (6.0-8.3) gm/dl Albumin (3.4-5.0) gm/dl Globulin (2.5-4.0) gm/dl Lipase (11-82) U/L Urine Protein 2+ H (Negative) Urine Blood 2+ H (Negative) Urine RBC (Auto) 10-30 H (0-4) /hpf Diagnostic Findings CT scan free air in abdomen,
--- NOTE | 2021-10-29 07:46 | History & Physical Bridge Note ---
Date of Service October 29, 2021 History & Physical Bridge Note I have examined the patient, reviewed the History & Physical and in the interval since the performance of the History & Physical I have noted the following changes of clinical significance: no changes noted
[2021-10-29] MEDS ORDERED: VANCOMYCIN CONSULT ACTIVE PRN ×2 (07:48→10:25)
[2021-10-29] MEDS ORDERED: VANCOMYCIN HCL 1,000 MG in SODIUM CHLORIDE 0.9% 250 ML IV STA (07:48)
[2021-10-29] MEDS ORDERED: CIPROFLOXACIN / D5W 400 MG/200 ML BAG IV SCH ×2 (08:00→20:00)
[2021-10-29] MEDS ORDERED: VANCOMYCIN HCL 1 GM/270 ML BAG IV ONE (08:00)
--- NOTE | 2021-10-29 08:01 | Anesthesiology Consultation ---
Date of Service October 29, 2021 Assessment & Plan Chart Review Chart Review: Acceptable Risk for Surgery Consults Requested none History Surgery Operation Date: 10/29/21 07:00 Proposed Procedures p Bowel Resection for Bowel Perforation - Demetrius Tobar MD Height/Weight Weight: 64.8 kg Allergies Allergy/AdvReac Type Severity Reaction Status Date / Time Penicillins AdvReac Intermediate Rash Verified 10/28/21 07:51 Sulfa (Sulfonamide AdvReac Intermediate Rash Verified 10/28/21 07:51 Antibiotics) Medications Home Medications Medication Instructions Recorded Confirmed Last Taken atenolol 25 mg tablet 25 mg PO DAILY 06/22/21 10/29/21 10/28/21 06:00 finasteride 5 mg tablet 5 mg PO DAILY 06/22/21 10/29/21 10/27/21 08:00 fluticasone propionate 50 1 spray INTRANASAL DAILY 06/22/21 10/29/21 10/27/21 20:00 mcg/actuation nasal spray,suspension hydrocodone 5 mg-acetaminophen 325 1 tab PO Q4H PRN #15 tab 06/22/21 10/29/21 Unknown mg tablet montelukast 10 mg tablet 10 mg PO DAILY 06/22/21 10/29/21 10/27/21 08:00 rivaroxaban 20 mg tablet (Xarelto) 20 mg PO DAILY 06/22/21 10/29/21 10/24/21 20:00 sertraline 100 mg tablet 100 mg PO DAILY 06/22/21 10/29/21 10/27/21 08:00 sumatriptan succinate 100 mg tablet 100 mg PO DAILY PRN 06/22/21 10/29/21 Unknown tamsulosin 0.4 mg capsule 0.4 mg PO QAM #30 cap 06/24/21 10/29/21 10/27/21 08:00 oxycodone-acetaminophen 5 mg-325 1 tab PO Q6H PRN #20 tab 10/28/21 10/29/21 Unknown mg tablet (Percocet) Active Medications Generic Name Dose Route Start Last Admin Trade Name Freq PRN Reason Stop Dose Admin Atenolol 25 mg 10/29/21 09:00 10/29/21 07:37 Atenolol 25 Mg Tablet PO 11/28/21 08:59 Not Given DAILY YIFAN Fluticasone Propionate 1 sprays 10/29/21 09:00 10/29/21 07:37 Fluticasone Propionate Na Spr 16 Gm Btl NA 11/28/21 08:59 Not Given DAILY YIFAN Lactated Ringer's 1,000 mls @ 100 mls/hr 10/29/21 05:45 10/29/21 06:17 Lr IV 11/28/21 05:44 100 mls/hr .Q10H YIFAN Administration Ertapenem 1,000 mg/ Syringe 10 mls @ 2 mls/min 10/29/21 06:00 10/29/21 06:17 IV 11/08/21 05:59 2 mls/min Q24H YIFAN Administration Montelukast Sodium 10 mg 10/29/21 09:00 10/29/21 07:38 Montelukast Sodium 10 Mg Tablet PO 11/28/21 08:59 Not Given DAILY YIFAN Morphine Sulfate 3 mg 10/29/21 01:39 10/29/21 06:34 Morphine Sulfate 4 Mg/Ml 1 Ml Carp\Vial IV 11/12/21 01:38 3 mg Q3H PRN Administration Pain Sertraline HCl 100 mg 10/29/21 09:00 10/29/21 07:38 Sertraline Hcl 100 Mg Tablet PO 11/28/21 08:59 Not Given DAILY YIFAN Tamsulosin HCl 0.4 mg 10/29/21 09:00 10/29/21 07:38 Tamsulosin Hcl 0.4 Mg Cap PO 11/28/21 08:59 Not Given QAM YIFAN NPO Date Last Intake of Fluids: 10/28/21 Time Last Intake of Fluids: 23:55 Date Last Intake of Solids: 10/28/21 Time Last Intake of Solids: 23:55 Past Medical History Medical History Anemia, iron deficiency BPH (benign prostatic hyperplasia) CKD (chronic kidney disease) stage 3, GFR 30-59 ml/min Depression with anxiety Dyslipidemia GERD (gastroesophageal reflux disease) History of kidney stones HTN (hypertension) Migraine PVD (peripheral vascular disease) On Xarelto per records Past Surgical History Surgical History S/P cystoscopy with ureteral stent placement Social History Smoking Status: Never smoker Hx Alcohol Use: No Hx Substance Use: No Physical Exam Vital Signs Last Vital Signs Temp 38 C H 10/29/21 07:48 Pulse 106 H 10/29/21 07:48 Resp 56 H 10/29/21 07:48 BP 94/59 L 10/29/21 07:48 Pulse Ox 91 10/29/21 07:48 Testing Laboratory Results 10/29/21 05:20 10/29/21 05:20 PT 11.5 Seconds (9.0-12.0) 10/29/21 05:35 INR 1.1 (0.9-1.1) 10/29/21 05:35 APTT 21.6 Seconds (21.0-31.0) 10/29/21 05:35 Urine Color Yellow 10/29/21 06:10 Urine Appearance Clear (Clear) 10/29/21 06:10 Urine pH 5.5 (4.5-7.5) 10/29/21 06:10 Ur Specific [place] 1.016 (1.000-1.030) 10/29/21 06:10 Urine Protein 2+ (Negative) H 10/29/21 06:10 Urine Glucose (UA) Negative (Negative) 10/29/21 06:10 Urine Ketones Negative (Negative) 10/29/21 06:10 Urine Nitrite Negative (Negative) 10/29/21 06:10 Ur Leukocyte Esterase Negative (Negative) 10/29/21 06:10 Urine WBC (Auto) 1-5 /hpf (0-5) 10/29/21 06:10 Urine RBC (Auto) 10-30 /hpf (0-4) H 10/29/21 06:10 U Hyaline Cast (Auto) 0 /lpf (0-5) 10/29/21 06:10 U Epithel Cells (Auto) 0-5 /lpf (0-5) 10/29/21 06:10 Urine Bacteria (Auto) Negative (Negative) 10/29/21 06:10
[2021-10-29] MEDS ORDERED: ePHEDrine sulfate 50 MG/ML AMP IV PRN (08:05)
[2021-10-29] MEDS ORDERED: HYDROmorphone INJ 2 MG/ML SYR/VIAL IV PRN (08:05)
[2021-10-29] MEDS ORDERED: fentaNYL citrate 100 MCG/2 ML VIAL IV PRN ×3 (08:05→10:37)
[2021-10-29] MEDS ORDERED: PROMETHAZINE HCL 12.5 MG in SODIUM CHLORIDE 0.9% 50 ML IV PRN (08:05)
[2021-10-29] MEDS ORDERED: ATROPINE SULFATE 0.1 MG/ML 10ML SYR IV PRN (08:05)
--- NOTE | 2021-10-29 08:07 | XRay Report ---
SINGLE VIEW CHEST CLINICAL HISTORY: Atypical chest pain. Recent cholecystectomy. FINDINGS: An AP, portable, upright chest radiograph is obtained. No prior studies are available for c omparison at the time of dictation. The heart is enlarged. The pulmonary vasculature is noncongested . Dependent airspace opacities are noted at both lung bases. No large pleural effusion or pneumothora x is seen. The skeletal structures are osteopenic. The bony thorax is grossly intact. Surgical clips and drainage peritoneal free air are seen in the upper abdomen. Subcutaneous emphysema is noted in th e right chest wall. IMPRESSION: 1. Cardiomegaly without radiographic evidence of congestive failure. 2. Dependent airspace opacities are seen at both lung bases. This could represent atelectasis and/or infectious/inflammatory pneumonitis. Clinical correlation will be required. 3. Intraperitoneal free air is seen below the diaphragm. This is nonspecific and may be related to re cent surgery. Clinical correlation will be required. ACT 112: Negative or not required by law. Electronically signed by: Shelton Francisco M.D. 10/29/2021 8:05 AM
[2021-10-29] MEDS ORDERED: BACITRACIN OINT 15 GM TUBE ONE (08:08)
[2021-10-29] MEDS ORDERED: BUPIVACAINE 0.5 % 5 MG/1 ML MPF 30ML VIAL ONE (08:09)
[2021-10-29] MEDS ORDERED: LIDOCAINE 1% LOCAL 20 ML VIAL ONE (08:09)
[2021-10-29] MEDS ORDERED: VASOPRESSIN 20 UNIT/ML VIAL ONE (08:14)
[2021-10-29] MEDS ORDERED: VANCOMYCIN HCL 1000MG/20ML VIAL ONE (08:52)
[2021-10-29] MEDS ORDERED: MONTELUKAST SODIUM 10 MG TABLET PO SCH (09:00)
[2021-10-29] MEDS ORDERED: ATENOLOL 25 MG TABLET PO SCH (09:00)
[2021-10-29] MEDS ORDERED: SERTRALINE HCL 100 MG TABLET PO SCH (09:00)
[2021-10-29] MEDS ORDERED: TAMSULOSIN HCL 0.4 MG CAP PO SCH (09:00)
--- NOTE | 2021-10-29 09:23 | CT Scan Report ---
CT SCAN OF THE ABDOMEN AND PELVIS WITHOUT IV CONTRAST CLINICAL HISTORY: Right upper quadrant abdominal pain status post cholecystectomy earlier the same day. COMPARISON STUDY: Abdominal CT dated 06/22/2021. TECHNIQUE: CT scan of the abdomen and pelvis is performed from the lung bases to the proximal femora. Images are reviewed in the axial, sagittal, and coronal planes. IV contrast was not administered for this examination. Note that the examination is suboptimal without IV contrast. A dose lowering techn ique was utilized adhering to the principles of ALARA. CT DOSE: 291.93 mGy.cm FINDINGS: Lung bases: The heart is enlarged and without pericardial effusion. There are trace pleural effusions with dependent consolidation. Liver: The unenhanced liver is normal in size and contour. Attenuation is heterogeneous. There is no intrahepatic biliary ductal dilatation. Gallbladder: Gallbladder surgically absent noting clips in the gallbladder fossa. Spleen: Normal in size and attenuation. Pancreas: Unremarkable. Adrenal glands: Unremarkable. Kidneys: The unenhanced kidneys demonstrate cortical atrophy . Numerous bilateral nonobstructing lauren l calculi measure up to 9 mm. A 9 mm calculus in the distal right ureter is seen just above the vesic oureteral junction on no image #385. A 3 mm calculus is seen at the left ureteropelvic junction on im age #158. No hydronephrosis is present in either kidney. A 2.6 cm cyst is noted in the right upper po le. Abdominal vasculature: The abdominal aorta is normal in course and caliber. Bowel: Postoperative change is noted involving the distal stomach. There is moderate to severe consti pation. No bowel obstruction is identified. Pill fragments are seen throughout the colon. The appendi x is visualized. Peritoneum: Intraperitoneal free air is seen throughout the abdomen, greatest below the right hemidia phragm. There is a small to moderate volume of free fluid in the right upper quadrant around the live r. Trace fluid is present around the spleen and there is a small volume of fluid in the pelvis. Lymphadenopathy: None. Pelvic viscera: The bladder is markedly distended but otherwise normal as imaged. The prostate gland is mildly enlarged and heterogeneous. The seminal vesicles are normal as visualized. There are bilate ral fat-containing groin hernias which contain fluid. Skeletal structures: The skeletal structures are osteopenic. There are chronic compression deformitie s of T12, L1, and L2. Mild lumbosacral spondylosis is observed. No lytic or blastic lesions are seen. There are healed right-sided rib fractures. Soft tissues: Foci of subcutaneous emphysema are present in the right chest and abdominal wall. IMPRESSION: 1. There is a large volume of intraperitoneal free air. This is nonspecific and likely related to rec ent surgery. Clinical correlation will be essential. 2. There is a small to moderate volume of free fluid in the right upper quadrant around the liver, wi th a small amount of fluid also seen around the spleen and in the pelvis. This is of indeterminant et iology, and given the history of recent gallbladder surgery may represent a bile leak. Correlation wi th a nuclear hepatobiliary scan is recommended. 3. Trace pleural effusions with dependent airspace consolidation. This could represent atelectasis ve rsus pneumonia/aspiration pneumonitis and clinical correlation will be required. 4. There is a 9 mm calculus in the distal right ureter and a 3 mm calculus at the left ureteropelvic junction. No hydronephrosis is seen in either kidney. 5. There are numerous additional nonobstructing bilateral renal calculi. 6. Marked bladder distention. 7. Moderate to severe constipation. 8. Postoperative change is noted involving the distal stomach. Correlate with the patient's surgical history. 9. Additional findings as above. ACT 112: Negative or not required by law. Electronically signed by: Shelton Francisco M.D. 10/29/2021 9:21 AM
--- NOTE | 2021-10-29 09:37 | Consultation Report ---
DATE OF CONSULTATION: 10/29/2021. CHIEF COMPLAINT: Abdominal pain, currently lethargic. HISTORY OF PRESENT ILLNESS: This is a 66-year-old male with past medical history significant for hyperlipidemia, peripheral vascular disease, hypertension, GERD, BPH, history of kidney stones, chronic kidney disease stage IIIB, history of migraine, iron deficiency anemia, depression. The patient says he has DVT in the leg about a year ago and is on Xarelto. Had elective laparoscopic cholecystectomy done on 10/28/2021 and he was discharged home the same day. Going home, he complained of severe abdominal pain and was advised to come to the hospital. Seems was doing ok except pain and received some pain medication.But on the floor, the patient became lethargic, tachycardic, hypotensive, requiring oxygen. So we were called for consult. On admission labs, WBC was 1.2, last month WBC was 6, his creatinine was 1.3 and the patient says he held Xarelto for a few days before the surgery. The patient denies any chest pain. The patient complins abdominal pain at surgical site. Denies any chest pain, denies any shortness of breath. He has some cough. No nausea, no vomiting. Normal bowel and bladder movements. The patient is answering slowly. He was able to tell his name, knows that he is in the hospital, could tell today's date. ALLERGIES: PENICILLIN, SULFA ANTIBIOTICS. PAST MEDICAL HISTORY: As mentioned above. PAST SURGICAL HISTORY: Colonoscopy, cystourethroscopy with lithotripsy, kidney stent placement, balloon angioplasty of the right tibioperoneal trunk and right anterior tibial artery. MEDICATIONS: The patient is on atenolol 25 mg p.o. daily, finasteride 5 mg p.o. daily, Flonase intranasal daily p.r.n., hydrocodone/acetaminophen 1 tab p.o. q. 4 hours p.r.n., montelukast 10 mg p.o. daily, sertraline 100 mg p.o. daily, sumatriptan 100 mg p.o. daily p.r.n., Flomax 0.4 mg p.o. a.m., Xarelto 20 mg p.o. daily. FAMILY HISTORY: Significant for no family history on file. SOCIAL HISTORY: . Former smoker, quit in 1974. Alcohol occasionally. No drug use. REVIEW OF SYSTEMS: As per HPI. Could not get complete review of systems as the patient is somewhat lethargic. PHYSICAL EXAMINATION: GENERAL: The patient is alert and awake, slow to answer. VITAL SIGNS: Temperature 36.5, pulse 75, respiratory rate 25, blood pressure 109/71, oxygen 87% on room air, currently 96% on 3 liters. HEENT: Atraumatic. Speech is low volume. CARDIOVASCULAR: S1 and S2 heard. Tachycardia. No murmurs. RESPIRATORY SYSTEM: Normal AP diameter. No accessory muscle use. No wheezing, crackles. ABDOMEN: Status post laparoscopic cholecystectomy. Has tenderness in his surgical site. No distention, mild guarding. CENTRAL NERVOUS SYSTEM: Alert, awake, and oriented. Speech is slow. Answering appropriately. No facial droop.Seems lethargic EXTREMITIES: No edema, no erythema. LABORATORY DATA: WBC 1.2, hemoglobin 11.8, hematocrit 38.9, platelets 341. PT 11.5, INR 1.1, APTT 27.6. Morning admission labs, sodium is 146, potassium 3.6, chloride 115, CO2 of 25, BUN 33, creatinine 1.5, serum glucose 100, calcium 7.9. Rapid COVID test negative. ASSESSMENT AND PLAN: This is a 66-year-old male who recently had laparoscopic cholecystectomy, who comes with abdominal pain and on the floor became lethargic. 1. Lethargic, tachycardic, hypotension, hypoxia requiring oxygen. Imaging studies, CAT scan done, on the preliminary report mentions free gas in the anterior peritoneal surface, right-sided ascites. Correlate clinically to exclude bile leak post-cholecystectomy changes, bilateral renal nonobstructive calcifications, constipation, slightly distended urinary bladder. Chest x-ray showed some air in the right diaphragm. Will follow the final reports. Surgery who admitted the patient thinks that the air in the diaphragm is most likely postsurgical. The patient is also getting Velazquez catheter, will follow the urinalysis. Will do the CTA chest to rule out pulmonary embolism as the patient held Xarelto for a few days before surgery. Empirically starting on Invanz. IV fluids. Follow the ABG levels, lactic acid levels, and repeat labs. Transferring to the [facility] floor for close monitoring. 2. History of hypertension: On atenolol with holding parameters. The patient currently seems to be in sepsis. 3. History of peripheral vascular disease: Continue his Xarelto. 4. History of deep venous thrombosis: On Xarelto. 5. History of benign prostatic hypertrophy: On Flomax and proscar 6. History of kidney stones. 7. Depression: On Zoloft. DVT px as per surgery. DISPOSITION: Closely monitor in the tele floor. Level 1 full code. Job ID: [id number] [facility]
[2021-10-29] MEDS ORDERED: PHENYLEPHRINE HCL 20 MG in DEXTROSE 5% 500 ML IV SCH (09:45)
--- NOTE | 2021-10-29 09:58 | Post Operative Brief Note ---
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
[2021-10-29] MEDS ORDERED: PIPERACILL/TAZOBAC CONSULT ACTIVE PRN ×2 (10:23→11:43)
[2021-10-29] MEDS ORDERED: VANCOMYCIN HCL 1,000 MG in SODIUM CHLORIDE 0.9% 250 ML IV SCH ×2 (10:25→13:00)
[2021-10-29] MEDS ORDERED: HYDROCODONE/ACETAMOPHEN 5/325MG TAB PO PRN (10:25)
[2021-10-29] MEDS ORDERED: oxyCODONE/ACETAMINOPHEN 5mg/325mg TAB PO PRN (10:25)
[2021-10-29] MEDS ORDERED: SUMAtriptan succinate 100 MG TAB PO PRN (10:25)
[2021-10-29] MEDS ORDERED: PIPERACILLIN/TAZOBACTAM 3.375 GM in DEXTROSE 5% 100 ML IV SCH (10:30)
[2021-10-29] MEDS ORDERED: STAT IV Infusion **Titration per Protocol STA ×3 (10:37→12:39)
[2021-10-29 10:41] LABS: iSTAT Allen Test Pass; iSTAT Arterial Blood Gas HCO3 19 meg/L (19-24); iSTAT Arterial Blood Gas pCO2 42 mmHg (35-46); iSTAT Arterial Blood Gas pH 7.26 (7.35-7.45); iSTAT Arterial Blood Gas pO2 89 mmHg (80-95); iSTAT Carbon Dioxide 20 mmol/L (24-31); iSTAT FiO2 50 %; iSTAT Site R Radial
[2021-10-29] MEDS ORDERED: dexMEDEtomidine 200 MCG/50 ML BAG IV SCH (10:45)
[2021-10-29] MEDS: Standard Conc 16mcg/mL; 8mg in 500mL IV SCH ×2 (10:48→15:08)
[2021-10-29] MEDS ORDERED: VASOPRESSIN 20 UNIT/ML VIAL IV ONE (10:59)
[2021-10-29] MEDS ORDERED: NOREPINEPHRINE BITARTRATE 1 MG/ML 4 ML VIAL IV ONE (10:59)
[2021-10-29 11:25] LABS: Hematocrit (blood only) 33.7 % (42-52); Hemoglobin 10.1 g/dL (14.0-18.0)
[2021-10-29 11:25] LABS: HCO3 VBG 21 mmol/L; PCO2 VBG 62 mmHg (38-50); PO2 VBG 25 mmHg; pH VBG 7.15 (7.36-7.41)
[2021-10-29 11:26] LABS: Oxygen Saturation VBG < 60.0 %
--- NOTE | 2021-10-29 11:27 | Anesthesiology Progress Note ---
Date of Service October 29, 2021 Anesthesia Post Procedure Vital Signs Vital Signs: Temp Pulse Pulse Resp BP BP BP 10/29/21 10:40 37.9 C H 100 H 20 75/63 L 10/29/21 10:35 37.9 C H 99 H 20 88/70 L 10/29/21 10:30 37.9 C H 100 H 20 88/69 L 10/29/21 10:25 37.9 C H 101 H 20 91/72 L 10/29/21 10:20 101 H 20 95/70 L 10/29/21 07:48 38 C H 106 H 56 H 94/59 L 10/29/21 04:20 36.5 C 121 H 20 100/71 10/29/21 03:30 125 H 25 H 109/71 10/29/21 01:36 128 H 24 156/103 H 10/29/21 00:38 10/29/21 00:37 126 H 30 H 165/109 H 10/28/21 23:06 36.5 C 126 H 16 152/104 H Pulse Ox 10/29/21 10:40 97 10/29/21 10:35 98 10/29/21 10:30 97 10/29/21 10:25 98 10/29/21 10:20 95 10/29/21 07:48 91 10/29/21 04:20 89 L 10/29/21 03:30 96 10/29/21 01:36 92 10/29/21 00:38 97 10/29/21 00:37 87 L 10/28/21 23:06 100 Pain Intensity Bilateral Abdomen: Pain Intensity: 0 Transfer of Care Handoff Completed per policy Notes Mental Status: alert / awake / arousable and participated in evaluation Patient Amnestic to Procedure: Yes Nausea / Vomiting: adequately controlled Pain: adequately controlled Airway Patency, RR, SpO2: stable & adequate BP & HR: stable & adequate Hydration State: stable & adequate Anesthetic Complications: no major complications apparent Notes: Pt not reversed. Transported to SICU with ETT/100% O2 [place]. Placed on vent, for continued care in ICU
[2021-10-29 11:36] LABS: INR 1.2 (0.9-1.1); Prothrombin Time 12.9 Seconds (9.0-12.0)
[2021-10-29] MEDS ORDERED: NORMOSOL-R 1,000 ML IV ONE (11:42)
[2021-10-29] MEDS ORDERED: HYDROCORTISONE SOD SUCCINATE 100 MG/2 ML VIAL ONE (11:43)
[2021-10-29] MEDS ORDERED: PIPERACILLIN/TAZOBACTAM 4.5 GM in DEXTROSE 5% 100 ML IV SCH (11:45)
[2021-10-29] MEDS: HYDROCORTISONE SOD 100 MG in SYRINGE 0 ML IV STA ×2 (11:46→12:06)
[2021-10-29 11:49] LABS: Albumin Level 2.8 gm/dl (3.4-5.0); Bilirubin Direct 0.1 mg/dl (0-0.2); Bilirubin,Total 0.3 mg/dl (0.2-1.0); Magnesium 1.3 mg/dl (1.7-2.4); Phosphorus 3.6 mg/dl (2.5-4.9); Total Protein 4.5 gm/dl (6.0-8.3)
[2021-10-29] MEDS: VASOPRESSIN 20 UNITS in 0.9 % SODIUM CHLORIDE 100 ML IV SCH ×2 (12:05→18:31)
[2021-10-29] MEDS: CEFEPIME 2,000 MG in SYRINGE 0 ML IV SCH (12:10)
--- NOTE | 2021-10-29 12:10 | XRay Report ---
SINGLE VIEW CHEST CLINICAL HISTORY: Respiratory failure. Intubation. FINDINGS: An AP, portable, upright chest radiograph is compared to chest x-ray and chest CT performed earlier the same day 10/29/2021. An endotracheal tube has been placed. The tip projects approximately 4.5 cm above the henry. An enteric tube has been placed. The tip projects below the diaphragm over t he mid stomach. A right internal jugular central venous catheter has been placed. The tip projects ov er the SVC. The heart is enlarged. The pulmonary vasculature is noncongested. There are small pleural effusions with dependent airspace opacities. No pneumothorax is seen. The skeletal structures are os teopenic. There are healed right-sided rib fractures. A surgical drain is now seen in the right uppe r quadrant. Midline skin clips are present in the upper abdomen.. IMPRESSION: 1. An endotracheal tube, an enteric tube, and a right internal jugular central venous catheter have b een placed as above. 2. No pneumothorax is seen post procedure. 3. Cardiomegaly without radiographic evidence of congestive failure. 4. There are small pleural effusions with right greater than left bibasilar opacities. This could rep resent atelectasis versus an infectious/inflammatory pneumonitis. Clinical correlation will be requir ed. 5. A surgical drain is now seen in the right upper quadrant of the abdomen. ACT 112: Negative or not required by law. Electronically signed by: Shelton Francisco M.D. 10/29/2021 12:09 PM
[2021-10-29 12:13] LABS: iSTAT Arterial Blood Gas HCO3 17 meg/L (19-24); iSTAT Arterial Blood Gas pCO2 34 mmHg (35-46); iSTAT Arterial Blood Gas pO2 80 mmHg (80-95); iSTAT Carbon Dioxide 18 mmol/L (24-31); iSTAT FiO2 50 %; iSTAT Site Art Line
[2021-10-29] MEDS: metroNIDAZOLE 500 MG/100 ML BAG IV SCH ×2 (12:24→20:31)
--- NOTE | 2021-10-29 12:29 | Pharmacy Report ---
Pharmacy Vanc AUC Short Note - Date of Service October 29, 2021 - Assessment & Plan Assessment * 66 year old M receiving VANCOMYCIN + CEFEPIME + METRONIDAZOLE for treatment of treatment of septic shock from intrabd source. Patient had recent lap narinder with return to OR for emergent exploratory lap and abd washout. * Pertinent microbiologic data includes: many WBC and gram neg rods in abd fluid gram stain; blcx's pending Plan Vancomycin * Patient received 1gm x 1 preop this AM. It appears that 50mg likely used intraop as well in irrigation? * Will initiate 1gm IV Q 24 hrs now as pt did not receive a loading dose and estimated level at this time should permit dosing now * AUC/KATT is the preferred PK/PD target for vancomycin * AUC guided dosing is effective and associated with decreased risk of nephrotoxicity compared to traditional trough targets * This dose is estimated to achieve the target AUC/KATT of 400-600 mg/L.hr and may be associated with a 11 % risk of nephrotoxicity * Will check random level with AM labs tomorrow as pt requiring multiple pressors and at risk for worsening [facility] will continue to follow and will adjust dose/frequency as necessary. Thank you.
--- NOTE | 2021-10-29 12:32 | Operative Report (OR) ---
DATE OF SERVICE: 10/29/2021 PREOPERATIVE DIAGNOSES: Post status laparoscopic cholecystectomy, abdominal pain, free air in the ab dominal cavity. POSTOPERATIVE DIAGNOSES: Post status laparoscopic cholecystectomy, abdominal pain, free air in the a bdominal cavity. OPERATION: Emergency exploratory laparotomy, washout of abdominal cavity, RED drainage x2. SURGEON: Demetrius Tobar MD. ANESTHESIA: General. ESTIMATED BLOOD LOSS: About 10 mL. FINDINGS: Some yellow free fluid inside the abdominal cavity. COMPLICATIONS: None. INDICATIONS FOR THE PROCEDURE: This is a 66-year-old gentleman who is post status laparoscopic narinder cystectomy and after surgery, later in the evening, the patient came to the ER with severe abdominal pain and the patient had a CT scan done, which showed free air, and based on the patient had a diffic ult laparoscopic cholecystectomy, during the procedure, the patient had small bowel adhesed to the ga llbladder and also patient had severe abdominal pain with rigidity and heart rate at 125, I worried a bout any injury to the bowel. In this situation, I recommended to do emergency exploratory laparotomy , possible bowel resection and stoma. I did talk to the patient and the patient's about the stephan efit, risk, alternate procedure. I indicated the risks may include, but not limited to, such as blee ding, infection, sepsis, multiple organ failure, myocardial infarction, DVT, stroke, even , and bile leak. They understand. The patient signed informed consent and I answered all questions. DETAILS OF PROCEDURE: After we identified the patient and verified the procedure, we brought the pat ient to the OR, put the patient in the supine position on the OR table. The patient received SCD on bilateral legs to prevent DVT. Also, patient received 1 gram of vancomycin IV and 400 mg of Cipro IV for prophylactic antibiotic. The patient received general anesthesia without difficulty. The abdom en was prepped and draped in routine sterile fashion. After timeout, I made a midline incision, marilin mónica the old scar, got into the abdomen without difficulty. Once we got into the abdomen, there was some yellow color fluid inside the abdomen that we suctioned out and we checked the small bowel and l arge bowel, no bowel perforation. At this moment, we used 1 liter of normal saline plus 1 gram of vancomycin to flush the abdomen and s uctioned all fluid out. Also, we sent the abdominal free fluid for culture. Again, we rechecked the liver side. No bile leak and no active bleeding. We checked the small bowel and large bowel, no in jury to the bowel, no perforation. At this moment, we decided to put a RED drainage. One RED was put j ust below the liver, a 10 mm RED drainage. Another RED drainage was put above the liver. Then, we use d 2-0 Vicryl to fix the RED on the skin. Hemostasis was obtained. Then, we closed the abdominal fascial layer by using PDS continuous running, closed subcutaneous laye r by using 2-0 Vicryl continuous running, closed skin by using staple. Then, we put the dressing on. The patient tolerated the procedure well. All instrument, needle and sponge counts were correct x2 at the end of the case. The patient was transferred to the ICU in critical condition. During the pr ocedure, the patient's blood pressure was around 95/70, heart rate was 89 and after the procedure, I did talk to the patient's and the patient's [id number] about the OR finding and the procedu re we did, they understand. Job ID: [id number]
[2021-10-29] MEDS ORDERED: MIDAZOLAM HCL 1 MG/ML 2ML VIAL IV PRN ×2 (12:39)
[2021-10-29] MEDS ORDERED: MAGNESIUM SULFATE / D5W 1 GM/100 ML BAG IV ONE (12:42)
[2021-10-29] MEDS ORDERED: fentaNYL citrate 2,500 MCG/250 ML BAG IV SCH (12:45)
[2021-10-29] MEDS: MAGNESIUM SULFATE / D5W 1 GM/100 ML BAG IV SCH ×3 (12:57→22:57)
--- NOTE | 2021-10-29 13:55 | Communication Note ---
Date of Service: October 29, 2021 Seen and examined at bedside. Currently in ICU. Chart reviewed. He is s/p laparoscopic cholecystectomy yesterday and discharged home who presented to the ED with acute abdomen and underwent emergency exploratory laparotomy, washout of abdominal cavity, RED drainage x2 today and transferred to ICU post op. He is currently on mechanical ventilation but awake, alert. On 3 pressors for septic shock. Also on IVF and IV antibiotics per primary team. Distribution Center Administrator has been consulted. Seen by cardio for elevated trop and found to have severe cardiomyopathy with global hypokinesia- recommended supportive care. Further management per surgical team, geometry tutor and cardiology as patient is in ICU level of care. We will be available as needed.
--- NOTE | 2021-10-29 13:59 | Cardiology Consultation ---
Date of Consultation October 29, 2021 Assessment & Plan (1) Elevated troponin I level: (2) Cardiomyopathy: (3) Shock: (4) S/P cholecystectomy: Supervising Physician Co-Signing Physician Notes 66-year-old patient presents to the hospital postoperative day #1 from cholecystectomy. Found to have acute abdomen in the ER and taken emergently to the operating room where bilious fluid was suctioned. A RED drain was placed. Hemodynamics suggest septic shock with ongoing fevers. Bedside 2D transthoracic echocardiogram demonstrates a severe cardiomyopathy with global hypokinesis. Mild troponin elevation noted secondary to severe sepsis, hemodynamic instability, and hypoxia. Plaque rupture event less likely. Repeat ECG with lateral ST elevation. Recommend repeat ECG and HS troponin I level. He is not a candidate for anticoagulation due to recent surgery. Recommend supportive care with pressors, inotropes, fluid resuscitation and antibiotics per critical care. History of Present Illness Reason for Consultation: Elevated troponin Requesting Physician: Dr. Tobar Attending Physician: Demetrius Tobar MD History of Present Illness 66-year-old patient presented to the emergency department with abdominal pain. Patient underwent outpatient cholecystectomy performed 10/28/2021. A high- sensitivity troponin was ordered in the ER prompting request for cardiology consultation. He was seen and evaluated by surgery and taken back to the operating room emergently. CT of the abdomen and pelvis demonstrating fluid in the right upper quadrant concerning for bile leak. Per review of operative report, no bowel perforation or bile leak was identified however, there was presence of bile in the abdomen which was suctioned. A RED drain was placed. Postoperatively the patient is intubated and hypotensive on multiple pressors. Febrile since admission. Currently sedated and intubated. ECG on admission demonstrating sinus tachycardia otherwise normal ECG. Repeat ECG performed at 1:18 PM demonstrating sinus arrhythmia, PVCs, lateral ST elevation. Preliminary review of bedside 2D transthoracic echocardiogram demonstrates severe LV systolic dysfunction with global hypokinesis and left ventricular ejection fraction of 25%. No si gnificant valvular pathology. Allergies Allergy/AdvReac Type Severity Reaction Status Date / Time Penicillins AdvReac Intermediate Rash Verified 10/28/21 07:51 Sulfa (Sulfonamide AdvReac Intermediate Rash Verified 10/28/21 07:51 Antibiotics) Home Medications Medication Instructions Recorded Confirmed Type atenolol 25 mg tablet 25 mg PO DAILY 06/22/21 10/29/21 History finasteride 5 mg tablet 5 mg PO DAILY 06/22/21 10/29/21 History fluticasone propionate 50 1 spray INTRANASAL DAILY 06/22/21 10/29/21 History mcg/actuation nasal spray,suspension hydrocodone 5 mg-acetaminophen 325 1 tab PO Q4H PRN #15 tab 06/22/21 10/29/21 Rx mg tablet montelukast 10 mg tablet 10 mg PO DAILY 06/22/21 10/29/21 History rivaroxaban 20 mg tablet (Xarelto) 20 mg PO DAILY 06/22/21 10/29/21 History sertraline 100 mg tablet 100 mg PO DAILY 06/22/21 10/29/21 History sumatriptan succinate 100 mg tablet 100 mg PO DAILY PRN 06/22/21 10/29/21 History tamsulosin 0.4 mg capsule 0.4 mg PO QAM #30 cap 06/24/21 10/29/21 Rx oxycodone-acetaminophen 5 mg-325 1 tab PO Q6H PRN #20 tab 10/28/21 10/29/21 Rx mg tablet (Percocet) Patient History Medical History Anemia, iron deficiency BPH (benign prostatic hyperplasia) CKD (chronic kidney disease) stage 3, GFR 30-59 ml/min Depression with anxiety Dyslipidemia GERD (gastroesophageal reflux disease) History of kidney stones HTN (hypertension) Migraine PVD (peripheral vascular disease) On Xarelto per records Surgical History S/P cystoscopy with ureteral stent placement Social History Smoking Status: Never smoker Second Hand Exposure: No; Hx Alcohol Use: No Hx Substance Use: No Preferred Language: Greenlandic Communication Ability: Effective 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 Beliefs That Will Affect Care: None Current Living Situation: Spouse Other Information That Helps Us Care for You: No Feels Safe at Home: Yes Safety Concerns: Feels Safe At This Time Assistive Devices: Denture - Upper, Denture - Lower and Walker Review of Systems Review of Systems: Unobtainable due to endotracheal tube Physical Exam Constitutional: well nourished and + ill appearing Respiratory: normal respiratory effort; no respiratory distress Cardiovascular: Rate/Rhythm: regular rate, regular rhythm and + tachycardic Heart Sounds: normal S1 and normal S2 Vessels: no JVD and no carotid bruit Extremities: no edema Gastrointestinal (Abdomen): Inspection/Auscultation: + abdomen distended; + abnormal bowel sounds Results & Data ([facility] [place]) Vital Signs (Past 12 Hours) Vital Signs Temp Pulse Pulse Resp BP BP BP 10/29/21 12:25 38.0 C H 94 H 24 85/57 L 10/29/21 12:20 38.0 C H 95 H 20 85/58 L 10/29/21 12:15 38.0 C H 95 H 21 90/65 L 10/29/21 12:10 38.0 C H 95 H 20 73/57 L 10/29/21 12:05 38.0 C H 94 H 20 68/51 L 10/29/21 12:00 38.0 C H 94 H 20 64/52 L 10/29/21 11:50 38.0 C H 96 H 20 66/53 L 10/29/21 11:45 38.0 C H 97 H 20 71/51 L 10/29/21 11:40 38.0 C H 96 H 20 62/46 L 10/29/21 11:38 96 H 21 10/29/21 11:30 38.0 C H 96 H 20 60/49 L 10/29/21 11:20 37.9 C H 97 H 20 60/45 L 10/29/21 11:11 37.9 C H 98 H 20 57/45 L 10/29/21 11:09 37.9 C H 98 H 20 59/45 L 10/29/21 11:00 37.9 C H 99 H 20 59/47 L 10/29/21 10:53 37.9 C H 99 H 20 71/56 L 10/29/21 10:51 37.9 C H 99 H 20 72/57 L 10/29/21 10:50 37.9 C H 100 H 20 78/60 L 10/29/21 10:45 37.9 C H 99 H 20 74/57 L 10/29/21 10:40 37.9 C H 99 H 100 H 20 75/63 L 75/63 L 10/29/21 10:35 37.9 C H 99 H 20 88/70 L 10/29/21 10:30 37.9 C H 100 H 20 88/69 L 10/29/21 10:25 37.9 C H 101 H 20 91/72 L 10/29/21 10:20 101 H 20 95/70 L 10/29/21 07:48 38 C H 106 H 56 H 94/59 L 10/29/21 04:20 36.5 C 121 H 20 100/71 10/29/21 03:30 125 H 25 H 109/71 Pulse Ox 10/29/21 12:25 72 L 10/29/21 12:20 98 10/29/21 12:15 97 10/29/21 12:10 98 10/29/21 12:05 98 10/29/21 12:00 97 10/29/21 11:50 97 10/29/21 11:45 98 10/29/21 11:40 98 10/29/21 11:38 98 10/29/21 11:30 92 10/29/21 11:20 98 10/29/21 11:11 98 10/29/21 11:09 96 10/29/21 11:00 97 10/29/21 10:53 96 10/29/21 10:51 95 10/29/21 10:50 97 10/29/21 10:45 97 10/29/21 10:40 97 10/29/21 10:35 98 10/29/21 10:30 97 10/29/21 10:25 98 10/29/21 10:20 95 10/29/21 07:48 91 10/29/21 04:20 89 L 10/29/21 03:30 96
[2021-10-29] MEDS ORDERED: PHENYLEPHRINE HCL 40 MG in DEXTROSE 5% 500 ML IV SCH (16:15)
[2021-10-29] MEDS ORDERED: NORMOSOL-R 1,000 ML IV SCH (16:18)
[2021-10-29] MEDS: ACETAMINOPHEN 1,000 MG/100 ML VIAL IV PRN (16:30)
[2021-10-29] MEDS: Double Conc 32mcg/mL; 16mg in 500mL IV SCH ×2 (16:48→22:38)
--- NOTE | 2021-10-29 17:07 | Critical Care Consultation ---
Date of Consultation October 29, 2021 Assessment & Plan (1) Shock: Reason Critically Ill: 66-year-old male postop day 1 from laparoscopic cholecystectomy, postop day 0 from exploratory laparotomy PLAN: Neuro: Analgesia: Fentanyl infusion Sedation: Versed IV pushes Resp: Postoperative respiratory insufficiency -Full ventilatory support in this postoperative state CV: Hypotension Cardiomyopathy -discussed with cardiology -Decreased EF: Demand ischemia versus stress-induced cardiomyopathy versus postoperative myocardial infarction -Global function decrease, plaque rupture less likely, supportive care Fluids/Renal: Acute kidney injury -Plasma-Lyte at 80 mils per hour Lactic acid acidosis BPH -Proscar 5 mg daily ID: SIRS with concern for sepsis -Blood cultures, fungal culture, abdominal washout culture pending -Vancomycin, Flagyl, cefepime for antibiotic coverage GI/Nutrition: Postop day 1 laparoscopic cholecystectomy Postop day 0 exploratory laparotomy -n.p.o. Heme: Leukopenia -Likely stress reaction History DVT -Long-term anticoagulation with Xarelto last taken 10/24 DVT prophylaxis: SCDs -Chemical prophylaxis contraindicated at this time secondary to recent surgery Endocrine: ICU hyperglycemia protocol Random cortisol adequate -Received 100 mg Solu-Cortef x1 given multiple vasoactive requirements while awaiting laboratory results Vascular access: Right internal jugular CVC placed 10/29, right arterial line placed 10/29 Code Status: Full code Disposition: ICU (2) Cardiomyopathy: (3) S/P cholecystectomy: (4) Abdominal pain: (5) Leucopenia: Supervising Physician Co-Signing Physician Notes I have personally spent 95 minutes of critical care time in the direct management of this patient. This is a life/limb threatening event. This includes time spent evaluating patient, direct bedside care, chart review, placing orders, interpretation of diagnostic studies, discussion with consultants, patient, and/or family members regarding treatment decisions, as well as other required patient management activities. This time is exclusive of all separately billable procedures, and teaching time and separate from and in addition to any other critical care service time. History of Present Illness Reason for Consultation: Postoperative respiratory insufficiency Requesting Physician: Dr. Owen Attending Physician: Demetrius Tobar MD History of Present Illness Patient is a 66-year-old male with a significant past medical history of hypertension, dyslipidemia, GERD, BPH, frequent kidney stones, peripheral arterial disease on Xarelto who underwent an outpatient elective cholecystectomy: Laparoscopic on 10/28/21. Patient returned to the emergency department later that evening for increasing amounts of pain and was admitted to the hospital for further evaluation and management. Patient's clinical condition slowly worsened and became concerning for sepsis versus possible biliary leak, he was started on IV antibiotics and went to the operating room for exploratory laparotomy. He was transferred to the ICU for ongoing vasoactive requirements and continued postoperative respiratory insufficiency with hemodynamic instability. During the abdominal washout today there was yellow free fluid noted, 2 RED drains were placed and cultures of the fluid were sent. Allergies Allergy/AdvReac Type Severity Reaction Status Date / Time Penicillins AdvReac Intermediate Rash Verified 10/28/21 07:51 Sulfa (Sulfonamide AdvReac Intermediate Rash Verified 10/28/21 07:51 Antibiotics) Home Medications Medication Instructions Recorded Confirmed Type atenolol 25 mg tablet 25 mg PO DAILY 06/22/21 10/29/21 History finasteride 5 mg tablet 5 mg PO DAILY 06/22/21 10/29/21 History fluticasone propionate 50 1 spray INTRANASAL DAILY 06/22/21 10/29/21 History mcg/actuation nasal spray,suspension hydrocodone 5 mg-acetaminophen 325 1 tab PO Q4H PRN #15 tab 06/22/21 10/29/21 Rx mg tablet montelukast 10 mg tablet 10 mg PO DAILY 06/22/21 10/29/21 History rivaroxaban 20 mg tablet (Xarelto) 20 mg PO DAILY 06/22/21 10/29/21 History sertraline 100 mg tablet 100 mg PO DAILY 06/22/21 10/29/21 History sumatriptan succinate 100 mg tablet 100 mg PO DAILY PRN 06/22/21 10/29/21 History tamsulosin 0.4 mg capsule 0.4 mg PO QAM #30 cap 06/24/21 10/29/21 Rx oxycodone-acetaminophen 5 mg-325 1 tab PO Q6H PRN #20 tab 10/28/21 10/29/21 Rx mg tablet (Percocet) Patient History Medical History Anemia, iron deficiency BPH (benign prostatic hyperplasia) CKD (chronic kidney disease) stage 3, GFR 30-59 ml/min Depression with anxiety Dyslipidemia GERD (gastroesophageal reflux disease) History of kidney stones HTN (hypertension) Migraine PVD (peripheral vascular disease) On Xarelto per records Surgical History S/P cystoscopy with ureteral stent placement Social History Smoking Status: Never smoker Second Hand Exposure: No; Hx Alcohol Use: No Hx Substance Use: No Preferred Language: Icelandic Communication Ability: Effective Entry Level Civil Engineer Required: No Beliefs That Will Affect Care: None Current Living Situation: Spouse Other Information That Helps Us Care for You: No Feels Safe at Home: Yes Safety Concerns: Feels Safe At This Time Assistive Devices: Denture - Upper, Denture - Lower and Walker Review of Systems Review of Systems: Unobtainable due to endotracheal tube Physical Exam Physical Exam: General: Sedated postoperatively (patient eventually became more alert and was able to follow simple commands) Skin: Warm, dry, pale Head: Atraumatic Ears, nose, mouth and throat: airway obscured by endotracheal tube Cardiovascular: Decreased capillary refill, tachycardia on bedside monitor Respiratory: Ventilator settings reviewed, bilateral breath sounds noted Gastrointestinal: Abdominal dressing in place, drains in place draining dark fluid Musculoskeletal: No deformity Results & Data Results & Data ([facility]) Vital Signs (Past 12 Hours) Vital Signs Temp Pulse Pulse Resp BP BP Pulse Ox 10/29/21 16:00 38.3 C H 91 H 20 78/57 L 95 10/29/21 15:45 38.2 C H 90 20 82/60 L 95 10/29/21 15:41 90 24 95 10/29/21 15:38 38.2 C H 90 20 75/55 L 95 10/29/21 15:30 38.2 C H 90 20 76/58 L 96 10/29/21 15:15 38.1 C H 90 20 83/63 L 97 10/29/21 15:00 38.1 C H 89 20 80/66 L 97 10/29/21 14:55 38.1 C H 89 22 76/62 L 98 10/29/21 14:45 38.0 C H 88 20 82/59 L 97 10/29/21 14:30 38.0 C H 90 20 82/65 L 96 10/29/21 14:15 37.9 C H 90 20 82/61 L 98 10/29/21 14:00 37.9 C H 90 20 81/64 L 99 10/29/21 13:45 37.9 C H 90 20 82/59 L 98 10/29/21 13:30 37.9 C H 90 18 83/64 L 97 10/29/21 13:25 37.9 C H 91 H 20 80/63 L 98 10/29/21 13:20 37.9 C H 90 20 81/62 L 99 10/29/21 13:15 37.9 C H 91 H 17 79/62 L 99 10/29/21 13:11 37.9 C H 92 H 20 82/55 L 99 10/29/21 13:10 37.9 C H 91 H 20 79/62 L 98 10/29/21 13:05 37.9 C H 92 H 20 81/61 L 98 10/29/21 13:00 37.9 C H 93 H 21 83/60 L 98 10/29/21 12:55 37.9 C H 93 H 20 80/63 L 98 10/29/21 12:50 37.9 C H 93 H 20 82/62 L 98 10/29/21 12:45 37.9 C H 93 H 18 83/62 L 99 10/29/21 12:40 37.9 C H 94 H 20 82/62 L 98 10/29/21 12:25 38.0 C H 94 H 24 85/57 L 72 L 10/29/21 12:20 38.0 C H 95 H 20 85/58 L 98 10/29/21 12:15 38.0 C H 95 H 21 90/65 L 97 10/29/21 12:10 38.0 C H 95 H 20 73/57 L 98 10/29/21 12:05 38.0 C H 94 H 20 68/51 L 98 10/29/21 12:00 38.0 C H 94 H 20 64/52 L 97 10/29/21 11:50 38.0 C H 96 H 20 66/53 L 97 10/29/21 11:45 38.0 C H 97 H 20 71/51 L 98 10/29/21 11:40 38.0 C H 96 H 20 62/46 L 98 10/29/21 11:38 96 H 21 98 10/29/21 11:30 38.0 C H 96 H 20 60/49 L 92 10/29/21 11:20 37.9 C H 97 H 20 60/45 L 98 10/29/21 11:11 37.9 C H 98 H 20 57/45 L 98 10/29/21 11:09 37.9 C H 98 H 20 59/45 L 96 10/29/21 11:00 37.9 C H 99 H 20 59/47 L 97 10/29/21 10:53 37.9 C H 99 H 20 71/56 L 96 10/29/21 10:51 37.9 C H 99 H 20 72/57 L 95 10/29/21 10:50 37.9 C H 100 H 20 78/60 L 97 10/29/21 10:45 37.9 C H 99 H 20 74/57 L 97 10/29/21 10:40 37.9 C H 99 H 100 H 20 75/63 L 75/63 L 97 10/29/21 10:35 37.9 C H 99 H 20 88/70 L 98 10/29/21 10:30 37.9 C H 100 H 20 88/69 L 97 10/29/21 10:25 37.9 C H 101 H 20 91/72 L 98 10/29/21 10:20 101 H 20 95/70 L 95 10/29/21 07:48 38 C H 106 H 56 H 94/59 L 91 Critical Care Results & Data Vital Signs (Past 12 Hours) Vital Signs Temp Pulse Pulse Resp BP BP Pulse Ox 10/29/21 17:00 38.5 C H 93 H 20 81/65 L 96 10/29/21 16:45 38.4 C H 92 H 20 82/67 L 93 10/29/21 16:30 38.4 C H 91 H 20 77/59 L 94 10/29/21 16:00 38.3 C H 91 H 20 78/57 L 95 10/29/21 15:45 38.2 C H 90 20 82/60 L 95 10/29/21 15:41 90 24 95 10/29/21 15:38 38.2 C H 90 20 75/55 L 95 10/29/21 15:30 38.2 C H 90 20 76/58 L 96 10/29/21 15:15 38.1 C H 90 20 83/63 L 97 10/29/21 15:00 38.1 C H 89 20 80/66 L 97 10/29/21 14:55 38.1 C H 89 22 76/62 L 98 10/29/21 14:45 38.0 C H 88 20 82/59 L 97 10/29/21 14:30 38.0 C H 90 20 82/65 L 96 10/29/21 14:15 37.9 C H 90 20 82/61 L 98 10/29/21 14:00 37.9 C H 90 20 81/64 L 99 10/29/21 13:45 37.9 C H 90 20 82/59 L 98 10/29/21 13:30 37.9 C H 90 18 83/64 L 97 10/29/21 13:25 37.9 C H 91 H 20 80/63 L 98 10/29/21 13:20 37.9 C H 90 20 81/62 L 99 10/29/21 13:15 37.9 C H 91 H 17 79/62 L 99 10/29/21 13:11 37.9 C H 92 H 20 82/55 L 99 10/29/21 13:10 37.9 C H 91 H 20 79/62 L 98 10/29/21 13:05 37.9 C H 92 H 20 81/61 L 98 10/29/21 13:00 37.9 C H 93 H 21 83/60 L 98 10/29/21 12:55 37.9 C H 93 H 20 80/63 L 98 10/29/21 12:50 37.9 C H 93 H 20 82/62 L 98 10/29/21 12:45 37.9 C H 93 H 18 83/62 L 99 10/29/21 12:40 37.9 C H 94 H 20 82/62 L 98 10/29/21 12:25 38.0 C H 94 H 24 85/57 L 72 L 10/29/21 12:20 38.0 C H 95 H 20 85/58 L 98 10/29/21 12:15 38.0 C H 95 H 21 90/65 L 97 10/29/21 12:10 38.0 C H 95 H 20 73/57 L 98 10/29/21 12:05 38.0 C H 94 H 20 68/51 L 98 10/29/21 12:00 38.0 C H 94 H 20 64/52 L 97 10/29/21 11:50 38.0 C H 96 H 20 66/53 L 97 10/29/21 11:45 38.0 C H 97 H 20 71/51 L 98 10/29/21 11:40 38.0 C H 96 H 20 62/46 L 98 10/29/21 11:38 96 H 21 98 10/29/21 11:30 38.0 C H 96 H 20 60/49 L 92 10/29/21 11:20 37.9 C H 97 H 20 60/45 L 98 10/29/21 11:11 37.9 C H 98 H 20 57/45 L 98 10/29/21 11:09 37.9 C H 98 H 20 59/45 L 96 10/29/21 11:00 37.9 C H 99 H 20 59/47 L 97 10/29/21 10:53 37.9 C H 99 H 20 71/56 L 96 10/29/21 10:51 37.9 C H 99 H 20 72/57 L 95 10/29/21 10:50 37.9 C H 100 H 20 78/60 L 97 10/29/21 10:45 37.9 C H 99 H 20 74/57 L 97 10/29/21 10:40 37.9 C H 99 H 100 H 20 75/63 L 75/63 L 97 10/29/21 10:35 37.9 C H 99 H 20 88/70 L 98 10/29/21 10:30 37.9 C H 100 H 20 88/69 L 97 10/29/21 10:25 37.9 C H 101 H 20 91/72 L 98 10/29/21 10:20 101 H 20 95/70 L 95 10/29/21 07:48 38 C H 106 H 56 H 94/59 L 91 Lab & Micro Results (Past 24 Hours) RBC 4.03 M/uL (4.7-6.1) L 10/29/21 WBC 1.25 K/uL (4.8-10.8) L 10/29/21 Hgb 10.1 g/dL (14.0-18.0) L 10/29/21 Hct 33.7 % (42-52) L 10/29/21 MCV 96.5 fL (80-100) 10/29/21 MCH 29.3 pg (25-34) 10/29/21 MCHC 30.3 g/dL (32-36) L 10/29/21 RDW Standard Deviation 49.8 fL (36.4-46.3) H 10/29/21 RDW Coefficient of Variation 14.0 % (11.5-14.5) 10/29/21 Plt Count 341 K/uL (130-400) 10/29/21 MPV 10.6 fL (7.4-10.4) H 10/29/21 Neutrophils (%) (Auto) 65.6 % 10/29/21 Lymphocytes (%) (Auto) 20.0 % 10/29/21 Monocytes # (Auto) 0.17 K/uL (0.11-0.59) 10/29/21 Eosinophils # (Auto) 0.00 K/uL (0-0.5) 10/29/21 Immature Granulocyte % (Auto) 0.8 % 10/29/21 Neutrophils # (Auto) 0.82 K/uL (1.4-6.5) L* 10/29/21 Lymphocytes # (Auto) 0.25 K/uL (1.2-3.4) L 10/29/21 Monocytes # (Auto) 0.17 K/uL (0.11-0.59) 10/29/21 Eosinophils # (Auto) 0.00 K/uL (0-0.5) 10/29/21 Basophils # (Auto) 0.00 K/uL (0-0.2) 10/29/21 Immature Granulocyte # (Auto) 0.01 K/uL (0.00-0.02) 10/29/21 Na 141 mmol/L (136-145) 10/29/21 K 3.5 mmol/L (3.5-5.1) 10/29/21 Cl 112 mmol/L (98-107) H 10/29/21 CO2 21 mmol/L (21-32) 10/29/21 Anion Gap 8 (3-11) 10/29/21 BUN 29 mg/dl (6-23) H 10/29/21 Creatinine 1.69 mg/dl (0.6-1.4) H 10/29/21 Estimated GFR ( Amer) 47.3 ml/min 10/29/21 Estimated GFR (Non-Af Amer) 40.8 ml/min 10/29/21 BUN/Creatinine Ratio 17.2 (10-20) 10/29/21 Glu 110 mg/dl (70-99(Fasting)) H 10/29/21 Ca 8.0 mg/dl (8.5-10.1) L 10/29/21 Phosphorus Level 3.6 mg/dl (2.5-4.9) 10/29/21 Total Bilirubin 0.3 mg/dl (0.2-1.0) 10/29/21 Direct Bilirubin 0.1 mg/dl (0-0.2) 10/29/21 AST 25 U/L (13-39) 10/29/21 ALT 19 U/L (7-52) 10/29/21 Alkaline Phosphatase 52 U/L (34-104) 10/29/21 TP 4.5 gm/dl (6.0-8.3) L 10/29/21 Albumin 2.8 gm/dl (3.4-5.0) L 10/29/21 Globulin 2.1 gm/dl (2.5-4.0) L 10/29/21 Albumin/Globulin Ratio 1.6 (0.9-2) 10/29/21 Mg 1.3 mg/dl (1.7-2.4) L 10/29/21 10:58 10/29/21 Calcium Level 8.0 mg/dl (8.5-10.1) L 10/29/21 05:20 10/29/21 Ionized Calcium 1.06 mmol/L (1.12-1.32) L 10/29/21 10:58 10/29/21 Prothromb Time International Ratio 1.2 (0.9-1.1) H 10/29/21 10:58 10/29/21 Venous Blood pH 7.15 (7.36-7.41) L 10/29/21 11:07 10/29/21 Venous Blood Partial Pressure CO2 62 mmHg (38-50) H 10/29/21 11:07 Venous Blood Partial Pressure O2 25 mmHg 10/29/21 11:07 10/29/21 Venous Blood HCO3 21 mmol/L 10/29/21 11:07 10/29/21 Venous Blood Base Excess -8.0 mEq/L 10/29/21 11:07 10/29/21 Venous Blood Oxygen Saturation < 60.0 % 10/29/21 11:07 10/29/21 Blood Gas Barometric Pressure 733.4 mm/Hg 10/29/21 11:07 10/29/21 Arterial Blood pH 7.35 (7.35-7.45) 10/29/21 05:35 10/29/21 Arterial Blood Partial Pressure CO2 37 mmHg (35-46) 10/29/21 05:35 10/29/21 Arterial Blood Partial Pressure O2 118 mmHg (80-95) H 10/29/21 05:35 10/29/21 Arterial Blood HCO3 20 mmol/L (19-24) 10/29/21 05:35 10/29/21 Arterial Blood Base Excess -4.9 mEq/L (-9-1.8) 10/29/21 05:35 10/29/21 Arterial Blood Oxygen Saturation 98.3 % (90-95) H 10/29/21 05:35 10/29/21 Blood Gas Oxygen Given 4L 10/29/21 05:35 10/29/21 Rajinder Test NA 10/29/21 11:59 10/29/21 Blood Gas Barometric Pressure 733.4 mm/Hg 10/29/21 11:07 10/29/21 Microbiology 10/29/21 08:50 Gram Stain - Final Abdomen Diagnostic Findings (Past 24 Hours) Chest X-Ray 10/28/21 23:34 SINGLE VIEW CHEST CLINICAL HISTORY: Atypical chest pain. Recent cholecystectomy. FINDINGS: An AP, portable, upright chest radiograph is obtained. No prior studies are available for comparison at the time of dictation. The heart is enlarged. The pulmonary vasculature is noncongested. Dependent airspace opaci ties are noted at both lung bases. No large pleural effusion or pneumothorax is seen. The skeletal structures are osteopenic. The bony thorax is grossly intact. Surgical clips and drainage peritoneal free air are seen in the upper abdomen. Subcutaneous emphysema is noted in the right chest wall. IMPRESSION: 1. Cardiomegaly without radiographic evidence of congestive failure. 2. Dependent airspace opacities are seen at both lung bases. This could represent atelectasis and/or infectious/inflammatory pneumonitis. Clinical correlation will be required. 3. Intraperitoneal free air is seen below the diaphragm. This is nonspecific and may be related to recent surgery. Clinical correlation will be required. ACT 112: Negative or not required by law. Electronically signed by: Shelton Francisco M.D. 10/29/2021 8:05 AM Abdomen/Pelvis CT 10/28/21 23:38 CT SCAN OF THE ABDOMEN AND PELVIS WITHOUT IV CONTRAST CLINICAL HISTORY: Right upper quadrant abdominal pain status post cholecystectomy earlier the same day. COMPARISON STUDY: Abdominal CT dated 06/22/2021. TECHNIQUE: CT scan of the abdomen and pelvis is performed from the lung bases to the proximal femora. Images are reviewed in the axial, sagittal, and coronal planes. IV contrast was not administered for this examination. Note that the examination is suboptimal without IV contrast. A dose lowering technique was utilized adhering to the principles of ALARA. CT DOSE: 291.93 mGy.cm FINDINGS: Lung bases: The heart is enlarged and without pericardial effusion. There are trace pleural effusions with dependent consolidation. Liver: The unenhanced liver is normal in size and contour. Attenuation is heterogeneous. There is no intrahepatic biliary ductal dilatation. Gallbladder: Gallbladder surgically absent noting clips in the gallbladder fossa. Spleen: Normal in size and attenuation. Pancreas: Unremarkable. Adrenal glands: Unremarkable. Kidneys: The unenhanced kidneys demonstrate cortical atrophy . Numerous bilateral nonobstructing renal calculi measure up to 9 mm. A 9 mm calculus in the distal right ureter is seen just above the vesicoureteral junction on no image #385. A 3 mm calculus is seen at the left ureteropelvic junction on image #158. No hydronephrosis is present in either kidney. A 2.6 cm cyst is noted in the right upper pole. Abdominal vasculature: The abdominal aorta is normal in course and caliber. Bowel: Postoperative change is noted involving the distal stomach. There is moderate to severe constipation. No bowel obstruction is identified. Pill fragments are seen throughout the colon. The appendix is visualized. Peritoneum: Intraperitoneal free air is seen throughout the abdomen, greatest below the right hemidiaphragm. There is a small to moderate volume of free fluid in the right upper quadrant around the liver. Trace fluid is present around the spleen and there is a small volume of fluid in the pelvis. Lymphadenopathy: None. Pelvic viscera: The bladder is markedly distended but otherwise normal as imaged. The prostate gland is mildly enlarged and heterogeneous. The seminal vesicles are normal as visualized. There are bilateral fat-containing groin hernias which contain fluid. Skeletal structures: The skeletal structures are osteopenic. There are chronic compression deformities of T12, L1, and L2. Mild lumbosacral spondylosis is observed. No lytic or blastic lesions are seen. There are healed right-sided rib fractures. Soft tissues: Foci of subcutaneous emphysema are present in the right chest and abdominal wall. IMPRESSION: 1. There is a large volume of intraperitoneal free air. This is nonspecific and likely related to recent surgery. Clinical correlation will be essential. 2. There is a small to moderate volume of free fluid in the right upper quadrant around the liver, with a small amount of fluid also seen around the spleen and in the pelvis. This is of indeterminant etiology, and given the history of recent gallbladder surgery may represent a bile leak. Correlation with a nuclear hepatobiliary scan is recommended. 3. Trace pleural effusions with dependent airspace consolidation. This could represent atelectasis versus pneumonia/aspiration pneumonitis and clinical correlation will be required. 4. There is a 9 mm calculus in the distal right ureter and a 3 mm calculus at the left ureteropelvic junction. No hydronephrosis is seen in either kidney. 5. There are numerous additional nonobstructing bilateral renal calculi. 6. Marked bladder distention. 7. Moderate to severe constipation. 8. Postoperative change is noted involving the distal stomach. Correlate with the patient's surgical history. 9. Additional findings as above. ACT 112: Negative or not required by law. Electronically signed by: Shelton Francisco M.D. 10/29/2021 9:21 AM Chest CTA 10/29/21 05:54 CT ANGIOGRAM OF THE CHEST CLINICAL HISTORY: Dyspnea. Recent surgery para COMPARISON STUDY: Chest x-ray dated 10/29/2021. TECHNIQUE: Following the IV administration of 120 cc of Optiray 320, CT angiogram of the chest was performed from the upper abdomen to the thoracic inlet utilizing the pulmonary embolus protocol. Images are reviewed in the axial, sagittal, and coronal planes. 3-D MIPS images are created and assessed. IV contrast was administered without complication. A dose lowering technique was utilized adhering to the principles of ALARA. The examination is severely degraded by motion artifact, as well as by streak artifact from the arms which could not be elevated above the chest. CT DOSE: 306.43 mGy.cm FINDINGS: Thyroid: Imaged portions of the thyroid gland are normal in size and attenuation. Thoracic aorta: There is atherosclerotic calcification of the thoracic aorta. There is aneurysmal dilatation of the ascending thoracic aorta which measures up to 4.5 cm in diameter. The remainder of the thoracic aorta is normal in caliber and the arch demonstrates 4-vessel very anatomy. No dissection is seen. Pulmonary vasculature: The pulmonary trunk is normal in caliber. There are no filling defects identified in main, lobar, or segmental pulmonary branches to suggest pulmonary embolus. Heart: The heart is enlarged and without pericardial effusion. There are scattered coronary artery calcifications. Lungs and pleural spaces: Evaluation of the lung parenchyma is compromised by motion artifact. There are small pleural effusions, right larger than left with dependent consolidation. The trachea and central airways appear clear. Mediastinum: There is no mediastinal lymphadenopathy. Esophagus: Esophagus is mildly distended and filled with fluid to the level of the thoracic inlet. Cally: Clear. Axillae: There is no axillary lymphadenopathy. Upper abdomen: Surgical clips are noted in the upper abdomen. Intraperitoneal free air is seen below the diaphragm. There is perihepatic and perisplenic free fluid. Skeletal structures: The skeletal structures are osteopenic. Degenerative change and kyphoscoliosis are noted in the thoracic spine. No lytic or blastic bony lesions are seen. There are numerous healed right-sided rib fractures. Soft tissues: There are foci of soft tissue gas within the right chest wall and in the right axilla. IMPRESSION: 1. Significantly streak and motion compromised examination. 2. There is no evidence of pulmonary embolus in the main, lobar, or segmental pulmonary arteries. 3. Intraperitoneal free air is seen below the diaphragm. This is nonspecific and may be related to the reported history of recent surgery. Clinical correlation will be essential. 4. Right larger than left pleural effusions with dependent airspace consolidation. This could represent atelectasis versus pneumonia/aspiration pneumonitis. Clinical correlation will be required and radiographic follow-up to resolution is recommended. 5. Cardiomegaly. 6. There is aneurysmal dilatation of the ascending thoracic aorta which measures up to 4.5 cm in diameter. 7. Subcutaneous emphysema is seen in the right chest wall and the right axilla. Clinical correlation will be required. 8. Free fluid is seen in the upper abdomen. 9. The esophagus is mildly distended and filled with fluid to the level of the thoracic inlet. Note that this may place the patient at risk for aspiration. 10. Additional findings as above. ACT 112: Negative or not required by law. Electronically signed by: Shelton Francisco M.D. 10/29/2021 7:15 AM Chest X-Ray 10/29/21 11:28 SINGLE VIEW CHEST CLINICAL HISTORY: Respiratory failure. Intubation. FINDINGS: An AP, portable, upright chest radiograph is compared to chest x-ray and chest CT performed earlier the same day 10/29/2021. An endotracheal tube has been placed. The tip projects approximately 4.5 cm above the henry. An enteric tube has been placed. The tip projects below the diaphragm over the mid stomach. A right internal jugular central venous catheter has been placed. The tip projects over the SVC. The heart is enlarged. The pulmonary vasculature is noncongested. There are small pleural effusions with dependent airspace opacities. No pneumothorax is seen. The skeletal structures are osteopenic. There are healed right-sided rib fractures. A surgical drain is now seen in the right upper quadrant. Midline skin clips are present in the upper abdomen.. IMPRESSION: 1. An endotracheal tube, an enteric tube, and a right internal jugular central venous catheter have been placed as above. 2. No pneumothorax is seen post procedure. 3. Cardiomegaly without radiographic evidence of congestive failure. 4. There are small pleural effusions with right greater than left bibasilar opacities. This could represent atelectasis versus an infectious/inflammatory pneumonitis. Clinical correlation will be required. 5. A surgical drain is now seen in the right upper quadrant of the abdomen. ACT 112: Negative or not required by law. Electronically signed by: Shelton Francisco M.D. 10/29/2021 12:09 PM I & O Totals 24 Hours 10/28/21 10/29/21 10/30/21 06:59 06:59 06:59 Intake Total 1999 3506.297 / 3506.297 Output Total 595 / 595 Balance 1999 2911.297 / 2911.297 Cumulative 10/28/21 23:05 thru 10/29/21 17:21 Intake Total 5506.297 Output Total 595 Balance 4911.297 RT Ventilator Mngmt (Last Documented) Ventilator Ordered Settings Ventilator Support Mode Assist Control 10/29/21 17:17 Respiratory Rate 20 10/29/21 17:00 Ventilator Tidal Volume 450 10/29/21 17:17 Setting Minute Ventilation 10.1 10/29/21 15:41 Positive End Expiratory 5 10/29/21 17:17 Pressure Fraction of Inspired Oxygen 50 10/29/21 17:17 Ventilator - PT Measurements Respiratory Rate 20 Exhaled Tidal Volume 574 Minute Ventilation 10.1 Peak Inspiratory Airway 15 Pressure Plateau Pressure 20 Respiratory Cycle Inspiratory: 1:2.8 Expiratory Ratio Inspiratory Phase Time 0.80 End-Tidal CO2 26 Static Lung Compliance 38.27 Dynamic Lung Compliance 57.40 Normal Static Lung Compliance 49.00 Coding Level of Care Code Critical Care ea addt'l 30 min Diagnoses Shock R57.9 Cardiomyopathy I42.9 S/P cholecystectomy Z90.49 Abdominal pain R10.9 Leucopenia D72.819
--- NOTE | 2021-10-29 17:36 | Procedure Note ---
Procedure Note Date of Service October 29, 2021 Note Procedure date: Noted above Procedure: Central venous access Pre-procedure indication: Need for vasoactive medication administration Post-procedure Diagnosis: same as above Prior to Procedure: Informed Consent: Emergent consent implied Attending Staff: Srinivasan Robertson DO Resident/APC: Not applicable Skin Prep: Chlorhexidine Anesthesia: 4 mL 1% lidocaine without epinephrine The identity of the patient was confirmed and a bedside time out was performed. Description of Procedure: After sterile prep and sterile drape utilizing standard sterile technique the superficial skin of the right internal jugular area was anesthetized. The target vessel was identified and entered with an 18- gauge needle. Dark venous blood return was noted. A guidewire was inserted through the needle and into the vessel. The needle was withdrawn and a skin leroy was made. A tissue dilator was advanced via Seldinger technique and removed. A triple lumen catheter was inserted via Seldinger technique and the guidewire removed. All ports daphne and flushed easily. A Biopatch was placed, and the catheter was secured via commercial securement device. A sterile dressing was then applied. Complications: None Estimated blood loss: Trace Patient tolerated the procedure well. Procedure Date: Noted Above Procedure: Procedural Ultrasound Indication: Central venous access Attending: Srinivasan Robertson DO Resident/Physician [employer] Ac[employer] Attorney: Not applicable Artery visualized: Yes Vein visualized: Yes Compressible Vein: Yes Vein patent: Yes Guidewire or Short Catheter seen in vein prior to dilation: Yes Line confirmed in Vein with ultrasound: Yes Lung Sliding on side of attempt (if applicable): NA If no lung sliding or not obtained has CXR been ordered: Yes Impression: Successful central venous access placement Images obtained are saved for permanent record Coding CPT Codes Tubes, Drains, and Vasc Access - Tubes, Drains, and Vasc Access: [id number] Insertion Of Non-tunneled Catheter Age 3 Yrs> ([id number]) Tubes, Drains, and Vasc Access - Tubes, Drains, and Vasc Access: [id number] Ultrasound Guidance For Vascular ([id number]) [facility] [place] Procedure Codes (Charges) Tubes, Drains, and Vasc Access Procedure 1: Tubes, Drains, and Vasc Access: [id number] Insertion Of Non-tunneled Catheter Age 3 Yrs> Procedure 2: Tubes, Drains, and Vasc Access: [id number] Ultrasound Guidance For Vascular
--- NOTE | 2021-10-29 17:38 | Procedure Note ---
Procedure Note Date of Service October 29, 2021 Note Procedure date: Noted above Procedure: Radial artery cannulation Pre-procedure Diagnosis: Need for invasive monitoring, hypotension/frequent blood draws Post-procedure Diagnosis: same as above Prior to Procedure: Informed Consent: Emergent consent implied Attending Staff: Srinivasan Robertson DO Skin Prep: Chlorhexidine Anesthesia: 3 mL 1% lidocaine without epinephrine The identity of the patient was confirmed and a bedside time out was performed. Description of Procedure: After sterile prep and sterile drape utilizing standard sterile technique the superficial skin of the right radial artery was anesthetized. The target artery was identified via dynamic ultrasound guidance and entered with a 20-gauge arrow Angiocath. Pulsatile bright red blood return was noted. Via modified Seldinger technique the self-contained guidewire was advanced and the Angiocath advanced over the guidewire. The guidewire was removed and brisk arterial blood return was noted. The pressure monitor was connected, and the arterial line was secured via commercial securement device. A sterile dressing was then applied. Complications: None Estimated blood loss: Trace Patient tolerated the procedure well. Coding CPT Codes Tubes, Drains, and Vasc Access - Tubes, Drains, and Vasc Access: [id number] Place Catheter In Artery ([id number]) [facility] [place] Procedure Codes (Charges) Tubes, Drains, and Vasc Access Procedure 1: Tubes, Drains, and Vasc Access: [id number] Place Catheter In Artery
[2021-10-29 21:23] LABS: Hematocrit (blood only) 34.9 % (42-52); Hemoglobin 10.6 g/dL (14.0-18.0)
[2021-10-29 21:31] LABS: iSTAT Art Bld Gas pCO2 Correct 36 mmHg (35-46); iSTAT Art Bld Gas pH Corrected 7.202 (7.35-7.45); iSTAT Arterial Blood Gas HCO3 14 meg/L (19-24); iSTAT Arterial Blood Gas pCO2 34 mmHg (35-46); iSTAT Arterial Blood Gas pH 7.23 (7.35-7.45); iSTAT Arterial Blood Gas pO2 87 mmHg (80-95); iSTAT Arterial Blood Gas pO2 C 98; iSTAT Carbon Dioxide 15 mmol/L (24-31); iSTAT FiO2 95 %; iSTAT Hematocrit 34 % (42-52); iSTAT Hemoglobin 11.6 g/dl (14.0-18.0); iSTAT Potassium 4.8 mmol/L (3.3-5.0); iSTAT Site Art Line; iSTAT Sodium 133 mmol/L (135-144)
[2021-10-29 22:06] LABS: BUN Creatinine Ratio 16.6 (10-20); Calcium 6.3 mg/dl (8.5-10.1); Creatinine Clr Calc Pharmacy 31.7 ml/min; Est GFR (African American) 33.8 ml/min; Est GFR (Non-African American) 29.2 ml/min; Magnesium 1.6 mg/dl (1.7-2.4); Phosphorus 5.5 mg/dl (2.5-4.9); Potassium 4.7 mmol/L (3.5-5.1)
[2021-10-29 22:39] LABS: Troponin I High Sensitivity 151.8 pg/ml (0-20)
[2021-10-29] MEDS ORDERED: CALCIUM CHLORIDE 10% 500 MG in DEXTROSE 5% 50 ML IV STA (22:47)
[2021-10-29] MEDS ORDERED: STAT IV STA (22:47)
[2021-10-29] MEDS: SODIUM BICARBONATE 8.4% 150 MEQ in DEXTROSE 5% 1,000 ML IV SCH (23:03)
[2021-10-30] MEDS: CEFEPIME 2,000 MG in SYRINGE 0 ML IV SCH (00:03)
[2021-10-30] MEDS: MAGNESIUM SULFATE / D5W 1 GM/100 ML BAG IV SCH (00:43)
[2021-10-30] MEDS: ACETAMINOPHEN 1,000 MG/100 ML VIAL IV PRN (00:46)
[2021-10-30] MEDS: VASOPRESSIN 20 UNITS in 0.9 % SODIUM CHLORIDE 100 ML IV SCH ×2 (01:09→09:06)
[2021-10-30] MEDS ORDERED: ALBUMIN 25% 100 mL 25 GM/100 ML VIAL IV ONE (03:30)
[2021-10-30] MEDS ORDERED: ALBUTEROL 0.5% NEB SOLN 2.5 MG/0.5 ML VIAL ONE ×2 (04:26→04:31)
--- NOTE | 2021-10-30 04:30 | Communication Note ---
Date of Service: October 30, 2021 0400: Patient noted to have winding complex on monitor. EKG was performed which demonstrated widening complex. Emergent laboratory orders were placed and ve rbal orders for potassium correction were provided to staff. Additionally, emergent ABG to assess [id number] potassium was obtained. Tgciv-[id number] potassium in excess of 7. Patient is acidotic at 7.0. Patient initially received 2 A of dextrose, 6 units IV insulin, and 2 A of bicarb while calcium chloride was being mixed by pharmacy. Additionally, hour-long albuterol nebulizer was ordered. Patient actually showed improvement in waveform with administration of IV dextrose and start of albuterol neb. Patient's waveform near completely improved after administration of bicarb. Repeat EKG demonstrated normal sinus rhythm at a rate of 99 bpm. Much improved from prior. While waiting on serum chemistry panel, the patient was noted to decrease his heart rate into the 60s. Repeat ABG was obtained which demonstrated persistent acidosis, however this was improved from recent ABG. Additionally, his potassium had improved to 6.0. Patient was provided an additional 2 A of sodium bicarbonate. Heart rate improved into the 90s. Blood pressure remains soft in the 90s to 100s, however he is significantly down on pressor requirement from change of shift tonight. Chemistry panel demonstrates hyponatremia as well as hyperkalemia with a potassium of 7.4. It should be noted that at this point, this potassium number had been treated aggressively as described above. Additionally, the patient is with ongoing metabolic acidosis with a CO2 of 9 and worsening renal failure. Patient noted to have increasing lactic acid greater than 9. Troponin took significant jump as well. CPK marginally elevated. 0615: Spoke with Dr. Tobar of general surgery. He does not feel as though the elevated lactate related to bowel ischemia. He does not feel that surgical intervention is warranted at this time. He suggested transfer to tertiary care facility with multiple ongoing comorbidities. 0635: Discussed the case with Dr. Martinez of nephrology. After reviewing chart and discussion of events over the last few hours, she suggest transfer to tertiary care facility given abrupt change in status as well as possible need for continuous renal replacement therapy versus spot hemodialysis as the patient is critically ill. 0645: Spoke with Dr. Seay at [facility] [place]. While he does agree that the patient warrants higher level of care, he is concerned that the patient is too unstable to transport at this time. Case discussed with my attending physician and general surgery attending at change of shift. Patient care transferred at change of shift. Coding Level of Care Code Critical Care 1st 30-74 mins Time Spent (min) 90
[2021-10-30] MEDS ORDERED: DEXTROSE 50% 50 ML SYRINGE IV STA ×2 (04:31→04:35)
[2021-10-30 04:32] LABS: Mean Corpuscular Hgb Conc 30.3 g/dL (32-36); Mean Corpuscular Volume 99.1 fL (80-100); Mean Platelet Volume 10.9 fL (7.4-10.4); Nucleated RBC # (auto) 0.02 K/uL (0-0); Nucleated RBC % (auto) 0.4 %; Platelet Count 214 K/uL (130-400); RDW Coefficient of Variation 14.7 % (11.5-14.5); RDW Standard Deviation 52.7 fL (36.4-46.3); Red Blood Count 3.33 M/uL (4.7-6.1); White Blood Count 5.02 K/uL (4.8-10.8)
[2021-10-30] MEDS ORDERED: DEXTROSE 50% 50 ML SYRINGE IV ONE (04:32)
[2021-10-30] MEDS ORDERED: CALCIUM CHLORIDE IV STA (04:34)
[2021-10-30] MEDS ORDERED: DEXTROSE 5% IV STA (04:34)
[2021-10-30 04:35] LABS: iSTAT Art Bld Gas pCO2 Correct 33 mmHg (35-46); iSTAT Art Bld Gas pH Corrected 7.071 (7.35-7.45); iSTAT Arterial Blood Gas HCO3 9 meg/L (19-24); iSTAT Arterial Blood Gas pCO2 31 mmHg (35-46); iSTAT Arterial Blood Gas pH 7.09 (7.35-7.45); iSTAT Arterial Blood Gas pO2 67 mmHg (80-95); iSTAT Arterial Blood Gas pO2 C 76; iSTAT Carbon Dioxide 10 mmol/L (24-31); iSTAT FiO2 40 %; iSTAT Hematocrit 32 % (42-52); iSTAT Hemoglobin 10.9 g/dl (14.0-18.0); iSTAT Potassium 7.3 mmol/L (3.3-5.0); iSTAT Site Art Line; iSTAT Sodium 126 mmol/L (135-144)
[2021-10-30] MEDS ORDERED: INSULIN HUMAN REGULAR PER UNIT 6 UNITS in SYRINGE 0 ML IV STA (04:35)
[2021-10-30] MEDS ORDERED: SODIUM BICARB 8.4% INJ 50 MEQ/50 ML SYR IV STA ×2 (04:35→05:18)
[2021-10-30] MEDS ORDERED: ALBUTEROL 0.5% NEB SOLN 2.5 MG/0.5 ML VIAL NEB STA (04:35)
[2021-10-30] MEDS ORDERED: CALCIUM CHLORIDE 10% 1,000 MG in DEXTROSE 5% 50 ML IV STA (04:36)
[2021-10-30 04:38] LABS: INR 1.8 (0.9-1.1); Prothrombin Time 18.5 Seconds (9.0-12.0)
[2021-10-30] MEDS ORDERED: INSULIN HUMAN REGULAR PER UNIT 6 UNITS in SYRINGE 5.94 ML IV ONE (04:45)
[2021-10-30 04:49] LABS: Dohle Bodies 1+; Echinocytes 2+; Immature Granulocytes # (auto) 0.37 K/uL (0.00-0.02); Immature Granulocytes % (auto) 7.4 %; Lymphocytes # (auto) 0.43 K/uL (1.2-3.4); Lymphocytes % (auto) 8.6 %; Monocytes # (auto) 0.21 K/uL (0.11-0.59); Monocytes % (auto) 4.2 %; Neutrophils # (auto) 4.01 K/uL (1.4-6.5); Neutrophils % (auto) 79.8 %
[2021-10-30 04:50] LABS: Bilirubin Direct 0.1 mg/dl (0-0.2)
[2021-10-30 04:51] LABS: Albumin Level 2.5 gm/dl (3.4-5.0); Bilirubin,Total 0.4 mg/dl (0.2-1.0); Magnesium 2.8 mg/dl (1.7-2.4); Phosphorus 8.3 mg/dl (2.5-4.9); Total Protein 4.1 gm/dl (6.0-8.3)
[2021-10-30] MEDS: metroNIDAZOLE 500 MG/100 ML BAG IV SCH (05:00)
[2021-10-30 05:01] LABS: Troponin I High Sensitivity 2219.2 pg/ml (0-20)
[2021-10-30 05:28] LABS: BUN Creatinine Ratio 14.9 (10-20); Calcium 6.5 mg/dl (8.5-10.1); Creatinine Clr Calc Pharmacy 24.4 ml/min; Est GFR (African American) 24.7 ml/min; Est GFR (Non-African American) 21.3 ml/min; Potassium 7.4 mmol/L (3.5-5.1)
[2021-10-30 05:30] LABS: iSTAT Art Bld Gas pCO2 Correct 33 mmHg (35-46); iSTAT Art Bld Gas pH Corrected 7.154 (7.35-7.45); iSTAT Arterial Blood Gas HCO3 12 meg/L (19-24); iSTAT Arterial Blood Gas pCO2 32 mmHg (35-46); iSTAT Arterial Blood Gas pH 7.17 (7.35-7.45); iSTAT Arterial Blood Gas pO2 105 mmHg (80-95); iSTAT Arterial Blood Gas pO2 C 112; iSTAT Carbon Dioxide 13 mmol/L (24-31); iSTAT FiO2 50 %; iSTAT Hematocrit 24 % (42-52); iSTAT Hemoglobin 8.2 g/dl (14.0-18.0); iSTAT Site Art Line; iSTAT Sodium 126 mmol/L (135-144)
[2021-10-30] MEDS ORDERED: CIPROFLOXACIN / D5W 400 MG/200 ML BAG IV SCH (06:00)
[2021-10-30 07:21] LABS: Hematocrit (blood only) 30.1 % (42-52); Hemoglobin 9.3 g/dL (14.0-18.0)
[2021-10-30] MEDS: Double Conc 32mcg/mL; 16mg in 500mL IV SCH ×3 (07:54→09:23)
[2021-10-30] MEDS: FLUTICASONE PROPIONATE NA SPR 16 GM BTL SCH (07:55)
[2021-10-30 07:57] LABS: BUN Creatinine Ratio 15.6 (10-20); Calcium 7.5 mg/dl (8.5-10.1); Creatinine Clr Calc Pharmacy 25.6 ml/min; Est GFR (African American) 26.2 ml/min; Est GFR (Non-African American) 22.6 ml/min; Magnesium 2.5 mg/dl (1.7-2.4); Phosphorus 9.3 mg/dl (2.5-4.9)
[2021-10-30] MEDS ORDERED: ARTIFICIAL TEARS OP OINT 3.5 GM TUBE OP PRN (07:58)
--- NOTE | 2021-10-30 08:14 | XRay Report ---
XR chest 1V portable CLINICAL HISTORY: intubation COMPARISON STUDY: Chest CT and chest radiograph October 29, 2021. FINDINGS: Tip of endotracheal tube is 3.1 cm above the henry. Right internal jugular central line is in place. Tip projects over the distal SVC. Cardiomegaly is noted. There is no pneumothorax. Multipl e old bilateral rib fractures are incidentally noted. Small to moderate right and small left pleural effusions are noted with bibasilar opacities. Mild interstitial thickening persists. Tip of nasogastr ic tube is below the lower aspect of image but at least within the body of the stomach. IMPRESSION: 1. Cardiomegaly with pulmonary vascular congestion with possible mild pulmonary edema. 2. Persistent pleural effusions, right larger than left, with associated bibasilar opacities. 3. Satisfactory positioning of lines and tubes. ACT 112: Negative or not required by law. Electronically signed by: Cody Hernández M.D. 10/30/2021 8:12 AM
--- NOTE | 2021-10-30 08:24 | Critical Care Progress Note ---
Date of Service October 30, 2021 Assessment & Plan (1) Shock: Plan: Reason Critically Ill: 66-year-old male postop day 1 from laparoscopic cholecystectomy, postop day 0 from exploratory laparotomy PLAN: Neuro: Analgesia: Fentanyl infusion Sedation: Versed IV pushes Resp: Postoperative respiratory insufficiency -Full ventilatory support in this postoperative state CV: Hypotension Cardiomyopathy -discussed with cardiology -Decreased EF: Demand ischemia versus stress-induced cardiomyopathy versus postoperative myocardial infarction -Global function decrease, plaque rupture less likely, supportive care Fluids/Renal: Acute kidney injury Hyperkalemia - Medical treatment - Without CVVH and vasoactive needs, transfer to tertiary would be optimal - repeat testing demonstrates improved potassium, there is no [facility] helicopter EMS secondary to weather, I believe this is our best window of opportunity to transfer via ALS ground to [facility] Lactic acid acidosis BPH -Proscar 5 mg daily ID: SIRS with concern for sepsis -Blood cultures, fungal culture, -abdominal washout culture: Gram-negative bacilli -Vancomycin, Flagyl, cefepime for antibiotic coverage GI/Nutrition: Postop day 2 laparoscopic cholecystectomy Postop day 1 exploratory laparotomy -n.p.o. Heme: Leukopenia: Resolved History DVT -Long-term anticoagulation with Xarelto last taken 10/24 DVT prophylaxis: SCDs -Chemical prophylaxis contraindicated at this time secondary to recent surgery Endocrine: ICU hyperglycemia protocol Random cortisol adequate -Received 100 mg Solu-Cortef x1 given multiple vasoactive requirements while awaiting laboratory results Vascular access: Right internal jugular CVC placed 5/3, right arterial line placed 10/29 Code Status: Full code Disposition: Transfer to [facility] -Excepted by Dr. Philip at [facility] - Updated Patient's son Nitin: [phone] (2) Cardiomyopathy: (3) S/P cholecystectomy: (4) Abdominal pain: (5) Leucopenia: Admission and Anticipated Discharge Date Admission Date: October 29, 2021 Supervising Physician Co-Signing Physician Notes I have personally spent 45 minutes of critical care time in the direct management of this patient. This is a life/limb threatening event. This includes time spent evaluating patient, direct bedside care, chart review, placing orders, interpretation of diagnostic studies, discussion with consultants, patient, and/or family members regarding treatment decisions, as well as other required patient management activities. This time is exclusive of all separately billable procedures, and teaching time and separate from and in addition to any other critical care service time. Subjective Overnight patient had rhythm change consistent with hyperkalemia and responded to medical treatment. Discussions had taken place with nephrology, patient is on 3 vasoactive medications and would be unlikely to tolerate regular dialysis and we do not have access to continuous venovenous hemofiltration. Review of Systems Review of Systems: Unobtainable due to endotracheal tube Physical Exam Physical Exam: General: Sedated Skin: Warm, dry, pale Head: Atraumatic Ears, nose, mouth and throat: airway obscured by endotracheal tube Cardiovascular: Normal sinus rhythm on bedside monitor Respiratory: Ventilator settings reviewed, bilateral breath sounds noted Gastrointestinal: Abdominal dressing in place, drains in place Musculoskeletal: No deformity Results & Data Results & Data ([facility]) Vital Signs (Past 12 Hours) Vital Signs Temp Pulse Pulse Resp BP Pulse Ox 10/30/21 07:45 90 22 95 10/30/21 06:00 37.8 C H 92 H 22 94/78 L 96 10/30/21 05:45 37.9 C H 93 H 20 10/30/21 05:30 38.0 C H 104 H 18 10/30/21 05:15 38.1 C H 67 18 114/81 97 10/30/21 05:00 38.3 C H 69 20 121/86 99 10/30/21 04:50 112 H 20 93 10/30/21 04:45 38.6 C H 104 H 20 10/30/21 04:30 38.7 C H 92 H 22 98/67 L 94 10/30/21 04:15 38.9 C H 126 H 22 93/68 L 10/30/21 04:00 39.0 C H 128 H 21 95 10/30/21 03:59 39.0 C H 128 H 21 90/63 L 95 10/30/21 03:45 39.0 C H 83 22 105/79 92 10/30/21 03:30 39.1 C H 84 22 99/73 L 93 10/30/21 03:00 39.3 C H 88 22 97/72 L 93 10/30/21 02:40 93 H 22 95 10/30/21 02:00 39.4 C H 97 H 20 100/82 94 10/30/21 01:00 39.4 C H 102 H 22 104/83 93 10/30/21 00:00 39.3 C H 104 H 22 102/71 91 10/29/21 23:00 39.1 C H 101 H 18 110/87 95 10/29/21 22:50 102 H 24 96 10/29/21 22:00 39.0 C H 103 H 18 111/82 96 10/29/21 21:00 38.8 C H 102 H 19 105/87 96 10/29/21 20:45 38.8 C H 103 H 20 96 Critical Care Results & Data Vital Signs (Past 12 Hours) Vital Signs Temp Pulse Pulse Resp BP Pulse Ox 10/30/21 07:45 90 22 95 10/30/21 06:00 37.8 C H 92 H 22 94/78 L 96 10/30/21 05:45 37.9 C H 93 H 20 10/30/21 05:30 38.0 C H 104 H 18 10/30/21 05:15 38.1 C H 67 18 114/81 97 10/30/21 05:00 38.3 C H 69 20 121/86 99 10/30/21 04:50 112 H 20 93 10/30/21 04:45 38.6 C H 104 H 20 10/30/21 04:30 38.7 C H 92 H 22 98/67 L 94 10/30/21 04:15 38.9 C H 126 H 22 93/68 L 10/30/21 04:00 39.0 C H 128 H 21 95 10/30/21 03:59 39.0 C H 128 H 21 90/63 L 95 10/30/21 03:45 39.0 C H 83 22 105/79 92 10/30/21 03:30 39.1 C H 84 22 99/73 L 93 10/30/21 03:00 39.3 C H 88 22 97/72 L 93 10/30/21 02:40 93 H 22 95 10/30/21 02:00 39.4 C H 97 H 20 100/82 94 10/30/21 01:00 39.4 C H 102 H 22 104/83 93 10/30/21 00:00 39.3 C H 104 H 22 102/71 91 10/29/21 23:00 39.1 C H 101 H 18 110/87 95 10/29/21 22:50 102 H 24 96 10/29/21 22:00 39.0 C H 103 H 18 111/82 96 10/29/21 21:00 38.8 C H 102 H 19 105/87 96 10/29/21 20:45 38.8 C H 103 H 20 96 Lab & Micro Results (Past 24 Hours) RBC 3.33 M/uL (4.7-6.1) L 10/30/21 WBC 5.02 K/uL (4.8-10.8) 10/30/21 Hgb 9.3 g/dL (14.0-18.0) L 10/30/21 Hct 30.1 % (42-52) L 10/30/21 MCV 99.1 fL (80-100) 10/30/21 MCH 30.0 pg (25-34) 10/30/21 MCHC 30.3 g/dL (32-36) L 10/30/21 RDW Standard Deviation 52.7 fL (36.4-46.3) H 10/30/21 RDW Coefficient of Variation 14.7 % (11.5-14.5) H 10/30/21 Plt Count 214 K/uL (130-400) 10/30/21 MPV 10.9 fL (7.4-10.4) H 10/30/21 Nucleated Red Blood Cells % (auto) 0.4 % 10/30/21 Nucleated RBC Absolute Count (auto) 0.02 K/uL (0-0) H 10/30/21 Neutrophils (%) (Auto) 79.8 % 10/30/21 Lymphocytes (%) (Auto) 8.6 % 10/30/21 Monocytes # (Auto) 0.21 K/uL (0.11-0.59) 10/30/21 Eosinophils # (Auto) 0.00 K/uL (0-0.5) 10/30/21 Immature Granulocyte % (Auto) 7.4 % 10/30/21 Neutrophils # (Auto) 4.01 K/uL (1.4-6.5) 10/30/21 Lymphocytes # (Auto) 0.43 K/uL (1.2-3.4) L 10/30/21 Monocytes # (Auto) 0.21 K/uL (0.11-0.59) 10/30/21 Eosinophils # (Auto) 0.00 K/uL (0-0.5) 10/30/21 Basophils # (Auto) 0.00 K/uL (0-0.2) 10/30/21 Immature Granulocyte # (Auto) 0.37 K/uL (0.00-0.02) H 10/30/21 Echinocytes 2+ 10/30/21 Dohle Bodies 1+ 10/30/21 Na 132 mmol/L (136-145) L 10/30/21 K 5.0 mmol/L (3.5-5.1) 10/30/21 Cl 98 mmol/L (98-107) 10/30/21 CO2 14 mmol/L (21-32) L 10/30/21 Anion Gap 20 (3-11) H 10/30/21 BUN 43 mg/dl (6-23) H 10/30/21 Creatinine 2.76 mg/dl (0.6-1.4) H 10/30/21 Estimated GFR ( Amer) 26.2 ml/min 10/30/21 Estimated GFR (Non-Af Amer) 22.6 ml/min 10/30/21 BUN/Creatinine Ratio 15.6 (10-20) 10/30/21 Glu 97 mg/dl (70-99(Fasting)) 10/30/21 Ca 7.5 mg/dl (8.5-10.1) L 10/30/21 Phosphorus Level 9.3 mg/dl (2.5-4.9) H 10/30/21 Total Bilirubin 0.4 mg/dl (0.2-1.0) 10/30/21 Direct Bilirubin 0.1 mg/dl (0-0.2) 10/30/21 AST 475 U/L (13-39) H 10/30/21 ALT 335 U/L (7-52) H 10/30/21 Alkaline Phosphatase 54 U/L (34-104) 10/30/21 TP 4.1 gm/dl (6.0-8.3) L 10/30/21 Albumin 2.5 gm/dl (3.4-5.0) L 10/30/21 Mg 2.5 mg/dl (1.7-2.4) H 10/30/21 07:08 10/30/21 Calcium Level 7.5 mg/dl (8.5-10.1) L 10/30/21 07:08 10/30/21 Ionized Calcium 0.91 mmol/L (1.12-1.32) L 10/30/21 04:16 10/30/21 Prothromb Time International Ratio 1.8 (0.9-1.1) H 10/30/21 04:16 10/30/21 Venous Blood pH 7.15 (7.36-7.41) L 10/29/21 11:07 10/29/21 Venous Blood Partial Pressure CO2 62 mmHg (38-50) H 10/29/21 11:07 09/17 Venous Blood Partial Pressure O2 25 mmHg 10/29/21 11:07 10/29/21 Venous Blood HCO3 21 mmol/L 10/29/21 11:07 10/29/21 Venous Blood Base Excess -8.0 mEq/L 10/29/21 11:07 10/29/21 Venous Blood Oxygen Saturation < 60.0 % 10/29/21 11:07 10/29/21 Blood Gas Barometric Pressure 733.4 mm/Hg 10/29/21 11:07 10/29/21 Rajinder Test NA 10/30/21 05:17 10/30/21 Blood Gas Barometric Pressure 733.4 mm/Hg 10/29/21 11:07 10/29/21 Microbiology 10/29/21 08:50 Gram Stain - Final Abdomen Aerobic and Anaerobic Culture - Preliminary Gram negative bacilli 10/29/21 10:58 Fungal Smear - Final Blood Diagnostic Findings (Past 24 Hours) Abdomen/Pelvis CT 10/28/21 23:38 CT SCAN OF THE ABDOMEN AND PELVIS WITHOUT IV CONTRAST CLINICAL HISTORY: Right upper quadrant abdominal pain status post cholecystectomy earlier the same day. COMPARISON STUDY: Abdominal CT dated 06/22/2021. TECHNIQUE: CT scan of the abdomen and pelvis is performed from the lung bases to the proximal femora. Images are reviewed in the axial, sagittal, and coronal planes. IV contrast was not administered for this examination. Note that the examination is suboptimal without IV contrast. A dose lowering technique was utilized adhering to the principles of ALARA. CT DOSE: 291.93 mGy.cm FINDINGS: Lung bases: The heart is enlarged and without pericardial effusion. There are trace pleural effusions with dependent consolidation. Liver: The unenhanced liver is normal in size and contour. Attenuation is heterogeneous. There is no intrahepatic biliary ductal dilatation. Gallbladder: Gallbladder surgically absent noting clips in the gallbladder fossa. Spleen: Normal in size and attenuation. Pancreas: Unremarkable. Adrenal glands: Unremarkable. Kidneys: The unenhanced kidneys demonstrate cortical atrophy . Numerous bilateral nonobstructing renal calculi measure up to 9 mm. A 9 mm calculus in the distal right ureter is seen just above the vesicoureteral junction on no image #385. A 3 mm calculus is seen at the left ureteropelvic junction on image #158. No hydronephrosis is present in either kidney. A 2.6 cm cyst is noted in the right upper pole. Abdominal vasculature: The abdominal aorta is normal in course and caliber. Bowel: Postoperative change is noted involving the distal stomach. There is moderate to severe constipation. No bowel obstruction is identified. Pill fragments are seen throughout the colon. The appendix is visualized. Peritoneum: Intraperitoneal free air is seen throughout the abdomen, greatest below the right hemidiaphragm. There is a small to moderate volume of free fluid in the right upper quadrant around the liver. Trace fluid is present around the spleen and there is a small volume of fluid in the pelvis. Lymphadenopathy: None. Pelvic viscera: The bladder is markedly distended but otherwise normal as imaged. The prostate gland is mildly enlarged and heterogeneous. The seminal vesicles are normal as visualized. There are bilateral fat-containing groin hernias which contain fluid. Skeletal structures: The skeletal structures are osteopenic. There are chronic compression deformities of T12, L1, and L2. Mild lumbosacral spondylosis is observed. No lytic or blastic lesions are seen. There are healed right-sided rib fractures. Soft tissues: Foci of subcutaneous emphysema are present in the right chest and abdominal wall. IMPRESSION: 1. There is a large volume of intraperitoneal free air. This is nonspecific and likely related to recent surgery. Clinical correlation will be essential. 2. There is a small to moderate volume of free fluid in the right upper quadrant around the liver, with a small amount of fluid also seen around the spleen and in the pelvis. This is of indeterminant etiology, and given the history of recent gallbladder surgery may represent a bile leak. Correlation with a nuclear hepatobiliary scan is recommended. 3. Trace pleural effusions with dependent airspace consolidation. This could represent atelectasis versus pneumonia/aspiration pneumonitis and clinical correlation will be required. 4. There is a 9 mm calculus in the distal right ureter and a 3 mm calculus at the left ureteropelvic junction. No hydronephrosis is seen in either kidney. 5. There are numerous additional nonobstructing bilateral renal calculi. 6. Marked bladder distention. 7. Moderate to severe constipation. 8. Postoperative change is noted involving the distal stomach. Correlate with the patient's surgical history. 9. Additional findings as above. ACT 112: Negative or not required by law. Electronically signed by: Shelton Francisco M.D. 10/29/2021 9:21 AM Chest X-Ray 10/29/21 11:28 SINGLE VIEW CHEST CLINICAL HISTORY: Respiratory failure. Intubation. FINDINGS: An AP, portable, upright chest radiograph is compared to chest x-ray and chest CT performed earlier the same day 10/29/2021. An endotracheal tube has been placed. The tip projects approximately 4.5 cm above the henry. An enteric tube has been placed. The tip projects below the diaphragm over the mid stomach. A right internal jugular central venous catheter has been placed. The tip projects over the SVC. The heart is enlarged. The pulmonary vasculature is noncongested. There are small pleural effusions with dependent airspace opacities. No pneumothorax is seen. The skeletal structures are osteopenic. There are healed right-sided rib fractures. A surgical drain is now seen in the right upper quadrant. Midline skin clips are present in the upper abdomen.. IMPRESSION: 1. An endotracheal tube, an enteric tube, and a right internal jugular central venous catheter have been placed as above. 2. No pneumothorax is seen post procedure. 3. Cardiomegaly without radiographic evidence of congestive failure. 4. There are small pleural effusions with right greater than left bibasilar opacities. This could represent atelectasis versus an infectious/inflammatory pneumonitis. Clinical correlation will be required. 5. A surgical drain is now seen in the right upper quadrant of the abdomen. ACT 112: Negative or not required by law. Electronically signed by: Shelton Francisco M.D. 10/29/2021 12:09 PM Chest X-Ray 10/30/21 06:00 XR chest 1V portable CLINICAL HISTORY: intubation COMPARISON STUDY: Chest CT and chest radiograph October 29, 2021. FINDINGS: Tip of endotracheal tube is 3.1 cm above the henry. Right internal jugular central line is in place. Tip projects over the distal SVC. Cardiomegaly is noted. There is no pneumothorax. Multiple old bilateral rib fractures are incidentally noted. Small to moderate right and small left pleural effusions are noted with bibasilar opacities. Mild interstitial thickening persists. Tip of nasogastric tube is below the lower aspect of image but at least within the body of the stomach. IMPRESSION: 1. Cardiomegaly with pulmonary vascular congestion with possible mild pulmonary edema. 2. Persistent pleural effusions, right larger than left, with associated bibasilar opacities. 3. Satisfactory positioning of lines and tubes. ACT 112: Negative or not required by law. Electronically signed by: Cody Hernández M.D. 10/30/2021 8:12 AM I & O Totals 24 Hours 10/29/21 10/30/21 10/31/21 06:59 06:59 06:59 Intake Total 1999 6701.922 / 6701.922 94.599 / 94.599 Output Total 1105 / 1105 Balance 1999 5596.922 / 5596.922 94.599 / 94.599 Cumulative 10/28/21 23:05 thru 10/30/21 07:10 Intake Total 8796.521 Output Total 1105 Balance 7691.521 RT Ventilator Mngmt (Last Documented) Ventilator Ordered Settings Ventilator Support Mode Assist Control 10/30/21 07:45 Respiratory Rate 22 10/30/21 07:45 Ventilator Tidal Volume 450 10/30/21 07:45 Setting Minute Ventilation 8.9 10/30/21 07:45 Positive End Expiratory 5 10/30/21 07:45 Pressure Fraction of Inspired Oxygen 40 10/30/21 07:45 Ventilator - PT Measurements Respiratory Rate 22 Exhaled Tidal Volume 454 Minute Ventilation 8.9 Peak Inspiratory Airway 16 Pressure Plateau Pressure 15.5 Respiratory Cycle Inspiratory: 1:2.7 Expiratory Ratio Inspiratory Phase Time 0.8 End-Tidal CO2 21 Static Lung Compliance 43.24 Dynamic Lung Compliance 41.27 Normal Static Lung Compliance 48.00 Coding Level of Care Code Critical Care ea addt'l 30 min Diagnoses Shock R57.9 Cardiomyopathy I42.9 S/P cholecystectomy Z90.49 Abdominal pain R10.9 Leucopenia D72.819
--- NOTE | 2021-10-30 08:25 | Surgery Progress Note ---
Date of Service October 30, 2021 Assessment & Plan (1) Abdominal pain: Plan: pt is a S/P difficulty laparoscopic cholecystectomy, POD 1, pt came back to ER with severe abdominal pain, IMP: S/P laparoscopic cholecystectomy, POD 1, severe abdominal , possible bowel perforation, Plan, I recommend to do emergent exploratory laparotomy, possible bowel resection, stoma, D/W benefits, risks and alternatives of the surgery, the risks - infection, bleeding, sepsis, multiple organs failure, HI, DVT, stroke, and , pt understood, he agrees with the surgery, he signed informed consent, I answered all questions, I called pt's , no one answered the phone, will consult package worker for high troponin 38, 10/30/2021 8:18AM, Dr. Tobar S/P laparoscopic cholecystectomy, POD 2, S/P exploratory laparotomy, POD 1, pt is still on vent, 2-D echo, severe cardiomyopathy, pt developed acute renal failure plan, [place] [facility] D/W benefits, risks and alternatives of the transfer [place] [facility] [place] pt's who understood, she agrees with transfer, I called [facility] [place] Dr. Philip, who accept the pt, by Helicopter, D/W [facility] ICU attending , Admission and Anticipated Discharge Date Admission Date: October 29, 2021 Supervising Physician Co-Signing Physician Notes I have personally spent 95 minutes of critical care time in the direct management of this patient. This is a life/limb threatening event. This includes time spent evaluating patient, direct bedside care, chart review, placing orders, interpretation of diagnostic studies, discussion with consultants, patient, and/or family members regarding treatment decisions, as well as other required patient management activities. This time is exclusive of all separately billable procedures, and teaching time and separate from and in addition to any other critical care service time. Subjective pt is a S/P laparoscopic cholecystectomy, POD 1, pt came in to ER with severe abdominal pain last night,pt was admitted to hospital, pt is still have severe abdominal pain with HR 125, I reviewed pt's H/P, labs and CT scan, EKG with pt, 10/30/2021 8:07AM, Dr. Tobar pt is still intubated, pt was doing better until 4AM today, pt started have EKG change, check K 7, treated high K was given, now the K is 6, BP 90-95/65, on 2 pressure drugs, RED 600ml billiary color Physical Exam Constitutional: on vent Eyes: PERRL, conjunctivae normal, anicteric sclerae Neck: trachea midline, no thyromegaly Respiratory: normal respiratory effort, lungs clear to auscultation Cardiovascular: RRR, no murmur, no edema Gastrointestinal (Abdomen): mild distend, incision intact, BS + Neurologic: pt is on vent, I called pt , he open his eyes and look at me, Results & Data ([facility]) Vital Signs (Past 12 Hours) Vital Signs Temp Pulse Pulse Resp BP Pulse Ox 10/30/21 07:45 90 22 95 10/30/21 06:00 37.8 C H 92 H 22 94/78 L 96 10/30/21 05:45 37.9 C H 93 H 20 10/30/21 05:30 38.0 C H 104 H 18 10/30/21 05:15 38.1 C H 67 18 114/81 97 10/30/21 05:00 38.3 C H 69 20 121/86 99 10/30/21 04:50 112 H 20 93 10/30/21 04:45 38.6 C H 104 H 20 10/30/21 04:30 38.7 C H 92 H 22 98/67 L 94 10/30/21 04:15 38.9 C H 126 H 22 93/68 L 10/30/21 04:00 39.0 C H 128 H 21 95 10/30/21 03:59 39.0 C H 128 H 21 90/63 L 95 10/30/21 03:45 39.0 C H 83 22 105/79 92 10/30/21 03:30 39.1 C H 84 22 99/73 L 93 10/30/21 03:00 39.3 C H 88 22 97/72 L 93 10/30/21 02:40 93 H 22 95 10/30/21 02:00 39.4 C H 97 H 20 100/82 94 10/30/21 01:00 39.4 C H 102 H 22 104/83 93 10/30/21 00:00 39.3 C H 104 H 22 102/71 91 10/29/21 23:00 39.1 C H 101 H 18 110/87 95 10/29/21 22:50 102 H 24 96 10/29/21 22:00 39.0 C H 103 H 18 111/82 96 10/29/21 21:00 38.8 C H 102 H 19 105/87 96 10/29/21 20:45 38.8 C H 103 H 20 96 Laboratory Results Abnormal lab results 10/29/21 10/29/21 10/29/21 Range/Units 10:27 10:58 10:58 RBC (4.7-6.1) M/uL Hgb 10.1 L (14.0-18.0) g/dL POC Hgb (14.0-18.0) g/dl Hct 33.7 L (42-52) % POC Hct (42-52) % MCHC (32-36) g/dL RDW Std Deviation (36.4-46.3) fL RDW Coeff of So (11.5-14.5) % MPV (7.4-10.4) fL Lymph # (Auto) (1.2-3.4) K/uL Immature Gran # (Auto) (0.00-0.02) K/uL Absolute Nucleated RBC (0-0) K/uL PT (9.0-12.0) Seconds INR (0.9-1.1) POC pH 7.26 L (7.35-7.45) POC pCO2 (35-46) mmHg POC pO2 (80-95) mmHg POC HCO3 (19-24) inna/L POC Total CO2 20 L (24-31) mmol/L POC Base Excess (-9-1.8) inna/L ABG pH (Temp Correct) (7.35-7.45) ABG pCO2 (Temp Corrct (35-46) mmHg POC ABG O2 Sat (90-95) % VBG pH (7.36-7.41) VBG pCO2 (38-50) mmHg POC Sodium (135-144) mmol/L Sodium (136-145) mmol/L POC Potassium (3.3-5.0) mmol/L Potassium (3.5-5.1) mmol/L Carbon Dioxide (21-32) mmol/L Anion Gap (3-11) BUN (6-23) mg/dl Creatinine (0.6-1.4) mg/dl Glucose (70-99(Fasting)) mg/dl POC Glucose (other) (70-99) mg/dl Lactate (0.4-2.0) mmol/L Calcium (8.5-10.1) mg/dl Ionized Calcium 1.06 L (1.12-1.32) mmol/L Phosphorus (2.5-4.9) mg/dl Magnesium (1.7-2.4) mg/dl AST (13-39) U/L ALT (7-52) U/L Total Creatine Kinase (30-223) U/L Troponin I High Sens (0-20) pg/ml Total Protein (6.0-8.3) gm/dl Albumin (3.4-5.0) gm/dl 10/29/21 10/29/21 10/29/21 Range/Units 10:58 10:58 10:58 RBC (4.7-6.1) M/uL Hgb (14.0-18.0) g/dL POC Hgb (14.0-18.0) g/dl Hct (42-52) % POC Hct (42-52) % MCHC (32-36) g/dL RDW Std Deviation (36.4-46.3) fL RDW Coeff of So (11.5-14.5) % MPV (7.4-10.4) fL Lymph # (Auto) (1.2-3.4) K/uL Immature Gran # (Auto) (0.00-0.02) K/uL Absolute Nucleated RBC (0-0) K/uL PT 12.9 H (9.0-12.0) Seconds INR 1.2 H (0.9-1.1) POC pH (7.35-7.45) POC pCO2 (35-46) mmHg POC pO2 (80-95) mmHg POC HCO3 (19-24) inna/L POC Total CO2 (24-31) mmol/L POC Base Excess (-9-1.8) inna/L ABG pH (Temp Correct) (7.35-7.45) ABG pCO2 (Temp Corrct (35-46) mmHg POC ABG O2 Sat (90-95) % VBG pH (7.36-7.41) VBG pCO2 (38-50) mmHg POC Sodium (135-144) mmol/L Sodium (136-145) mmol/L POC Potassium (3.3-5.0) mmol/L Potassium (3.5-5.1) mmol/L Carbon Dioxide (21-32) mmol/L Anion Gap (3-11) BUN (6-23) mg/dl Creatinine (0.6-1.4) mg/dl Glucose (70-99(Fasting)) mg/dl POC Glucose (other) (70-99) mg/dl Lactate (0.4-2.0) mmol/L Calcium (8.5-10.1) mg/dl Ionized Calcium (1.12-1.32) mmol/L Phosphorus (2.5-4.9) mg/dl Magnesium 1.3 L (1.7-2.4) mg/dl AST (13-39) U/L ALT (7-52) U/L Total Creatine Kinase (30-223) U/L Troponin I High Sens 79.2 H* D (0-20) pg/ml Total Protein 4.5 L (6.0-8.3) gm/dl Albumin 2.8 L (3.4-5.0) gm/dl 10/29/21 10/29/21 10/29/21 Range/Units 11:07 11:07 11:59 RBC (4.7-6.1) M/uL Hgb (14.0-18.0) g/dL POC Hgb (14.0-18.0) g/dl Hct (42-52) % POC Hct (42-52) % MCHC (32-36) g/dL RDW Std Deviation (36.4-46.3) fL RDW Coeff of So (11.5-14.5) % MPV (7.4-10.4) fL Lymph # (Auto) (1.2-3.4) K/uL Immature Gran # (Auto) (0.00-0.02) K/uL Absolute Nucleated RBC (0-0) K/uL PT (9.0-12.0) Seconds INR (0.9-1.1) POC pH 7.30 L (7.35-7.45) POC pCO2 34 L (35-46) mmHg POC pO2 (80-95) mmHg POC HCO3 17 L (19-24) inna/L POC Total CO2 18 L (24-31) mmol/L POC Base Excess -10.0 L (-9-1.8) inna/L ABG pH (Temp Correct) (7.35-7.45) ABG pCO2 (Temp Corrct (35-46) mmHg POC ABG O2 Sat (90-95) % VBG pH 7.15 L (7.36-7.41) VBG pCO2 62 H (38-50) mmHg POC Sodium (135-144) mmol/L Sodium (136-145) mmol/L POC Potassium (3.3-5.0) mmol/L Potassium (3.5-5.1) mmol/L Carbon Dioxide (21-32) mmol/L Anion Gap (3-11) BUN (6-23) mg/dl Creatinine (0.6-1.4) mg/dl Glucose (70-99(Fasting)) mg/dl POC Glucose (other) (70-99) mg/dl Lactate 5.0 H* (0.4-2.0) mmol/L Calcium (8.5-10.1) mg/dl Ionized Calcium (1.12-1.32) mmol/L Phosphorus (2.5-4.9) mg/dl Magnesium (1.7-2.4) mg/dl AST (13-39) U/L ALT (7-52) U/L Total Creatine Kinase (30-223) U/L Troponin I High Sens (0-20) pg/ml Total Protein (6.0-8.3) gm/dl Albumin (3.4-5.0) gm/dl 10/29/21 10/29/21 10/29/21 Range/Units 15:45 17:02 21:14 RBC (4.7-6.1) M/uL Hgb 10.6 L (14.0-18.0) g/dL POC Hgb (14.0-18.0) g/dl Hct 34.9 L (42-52) % POC Hct (42-52) % MCHC (32-36) g/dL RDW Std Deviation (36.4-46.3) fL RDW Coeff of So (11.5-14.5) % MPV (7.4-10.4) fL Lymph # (Auto) (1.2-3.4) K/uL Immature Gran # (Auto) (0.00-0.02) K/uL Absolute Nucleated RBC (0-0) K/uL PT (9.0-12.0) Seconds INR (0.9-1.1) POC pH (7.35-7.45) POC pCO2 (35-46) mmHg POC pO2 (80-95) mmHg POC HCO3 (19-24) inna/L POC Total CO2 (24-31) mmol/L POC Base Excess (-9-1.8) inna/L ABG pH (Temp Correct) (7.35-7.45) ABG pCO2 (Temp Corrct (35-46) mmHg POC ABG O2 Sat (90-95) % VBG pH (7.36-7.41) VBG pCO2 (38-50) mmHg POC Sodium (135-144) mmol/L Sodium (136-145) mmol/L POC Potassium (3.3-5.0) mmol/L Potassium (3.5-5.1) mmol/L Carbon Dioxide (21-32) mmol/L Anion Gap (3-11) BUN (6-23) mg/dl Creatinine (0.6-1.4) mg/dl Glucose (70-99(Fasting)) mg/dl POC Glucose (other) 145 H (70-99) mg/dl Lactate (0.4-2.0) mmol/L Calcium (8.5-10.1) mg/dl Ionized Calcium (1.12-1.32) mmol/L Phosphorus (2.5-4.9) mg/dl Magnesium (1.7-2.4) mg/dl AST (13-39) U/L ALT (7-52) U/L Total Creatine Kinase (30-223) U/L Troponin I High Sens 87.4 H* (0-20) pg/ml Total Protein (6.0-8.3) gm/dl Albumin (3.4-5.0) gm/dl 10/29/21 10/29/21 10/29/21 Range/Units 21:14 21:14 21:17 RBC (4.7-6.1) M/uL Hgb (14.0-18.0) g/dL POC Hgb 11.6 L (14.0-18.0) g/dl Hct (42-52) % POC Hct 34 L (42-52) % MCHC (32-36) g/dL RDW Std Deviation (36.4-46.3) fL RDW Coeff of So (11.5-14.5) % MPV (7.4-10.4) fL Lymph # (Auto) (1.2-3.4) K/uL Immature Gran # (Auto) (0.00-0.02) K/uL Absolute Nucleated RBC (0-0) K/uL PT (9.0-12.0) Seconds INR (0.9-1.1) POC pH 7.23 L (7.35-7.45) POC pCO2 34 L (35-46) mmHg POC pO2 (80-95) mmHg POC HCO3 14 L (19-24) inna/L POC Total CO2 15 L (24-31) mmol/L POC Base Excess -14.0 L (-9-1.8) inna/L ABG pH (Temp Correct) 7.202 L (7.35-7.45) ABG pCO2 (Temp Corrct (35-46) mmHg POC ABG O2 Sat (90-95) % VBG pH (7.36-7.41) VBG pCO2 (38-50) mmHg POC Sodium 133 L (135-144) mmol/L Sodium 130 L D (136-145) mmol/L POC Potassium (3.3-5.0) mmol/L Potassium (3.5-5.1) mmol/L Carbon Dioxide 14 L (21-32) mmol/L Anion Gap 13 H (3-11) BUN 37 H (6-23) mg/dl Creatinine 2.23 H D (0.6-1.4) mg/dl Glucose 105 H (70-99(Fasting)) mg/dl POC Glucose (other) (70-99) mg/dl Lactate 3.6 H* (0.4-2.0) mmol/L Calcium 6.3 L (8.5-10.1) mg/dl Ionized Calcium (1.12-1.32) mmol/L Phosphorus 5.5 H D (2.5-4.9) mg/dl Magnesium 1.6 L (1.7-2.4) mg/dl AST (13-39) U/L ALT (7-52) U/L Total Creatine Kinase (30-223) U/L Troponin I High Sens 151.8 H* D (0-20) pg/ml Total Protein (6.0-8.3) gm/dl Albumin (3.4-5.0) gm/dl 10/29/21 10/30/21 10/30/21 Range/Units 23:40 04:16 04:16 RBC 3.33 L (4.7-6.1) M/uL Hgb 10.0 L (14.0-18.0) g/dL POC Hgb (14.0-18.0) g/dl Hct 33.0 L (42-52) % POC Hct (42-52) % MCHC 30.3 L (32-36) g/dL RDW Std Deviation 52.7 H (36.4-46.3) fL RDW Coeff of So 14.7 H (11.5-14.5) % MPV 10.9 H (7.4-10.4) fL Lymph # (Auto) 0.43 L (1.2-3.4) K/uL Immature Gran # (Auto) 0.37 H (0.00-0.02) K/uL Absolute Nucleated RBC 0.02 H (0-0) K/uL PT (9.0-12.0) Seconds INR (0.9-1.1) POC pH (7.35-7.45) POC pCO2 (35-46) mmHg POC pO2 (80-95) mmHg POC HCO3 (19-24) inna/L POC Total CO2 (24-31) mmol/L POC Base Excess (-9-1.8) inna/L ABG pH (Temp Correct) (7.35-7.45) ABG pCO2 (Temp Corrct (35-46) mmHg POC ABG O2 Sat (90-95) % VBG pH (7.36-7.41) VBG pCO2 (38-50) mmHg POC Sodium (135-144) mmol/L Sodium (136-145) mmol/L POC Potassium (3.3-5.0) mmol/L Potassium (3.5-5.1) mmol/L Carbon Dioxide (21-32) mmol/L Anion Gap (3-11) BUN (6-23) mg/dl Creatinine (0.6-1.4) mg/dl Glucose (70-99(Fasting)) mg/dl POC Glucose (other) 104 H (70-99) mg/dl Lactate (0.4-2.0) mmol/L Calcium (8.5-10.1) mg/dl Ionized Calcium (1.12-1.32) mmol/L Phosphorus 8.3 H D (2.5-4.9) mg/dl Magnesium 2.8 H (1.7-2.4) mg/dl AST 475 H (13-39) U/L ALT 335 H (7-52) U/L Total Creatine Kinase (30-223) U/L Troponin I High Sens 2219.2 H* D (0-20) pg/ml Total Protein 4.1 L (6.0-8.3) gm/dl Albumin 2.5 L (3.4-5.0) gm/dl 10/30/21 10/30/21 10/30/21 Range/Units 04:16 04:16 04:16 RBC (4.7-6.1) M/uL Hgb (14.0-18.0) g/dL POC Hgb (14.0-18.0) g/dl Hct (42-52) % POC Hct (42-52) % MCHC (32-36) g/dL RDW Std Deviation (36.4-46.3) fL RDW Coeff of So (11.5-14.5) % MPV (7.4-10.4) fL Lymph # (Auto) (1.2-3.4) K/uL Immature Gran # (Auto) (0.00-0.02) K/uL Absolute Nucleated RBC (0-0) K/uL PT 18.5 H (9.0-12.0) Seconds INR 1.8 H (0.9-1.1) POC pH (7.35-7.45) POC pCO2 (35-46) mmHg POC pO2 (80-95) mmHg POC HCO3 (19-24) inna/L POC Total CO2 (24-31) mmol/L POC Base Excess (-9-1.8) inna/L ABG pH (Temp Correct) (7.35-7.45) ABG pCO2 (Temp Corrct (35-46) mmHg POC ABG O2 Sat (90-95) % VBG pH (7.36-7.41) VBG pCO2 (38-50) mmHg POC Sodium (135-144) mmol/L Sodium (136-145) mmol/L POC Potassium (3.3-5.0) mmol/L Potassium (3.5-5.1) mmol/L Carbon Dioxide (21-32) mmol/L Anion Gap (3-11) BUN (6-23) mg/dl Creatinine (0.6-1.4) mg/dl Glucose (70-99(Fasting)) mg/dl POC Glucose (other) (70-99) mg/dl Lactate 9.1 H* (0.4-2.0) mmol/L Calcium (8.5-10.1) mg/dl Ionized Calcium 0.91 L (1.12-1.32) mmol/L Phosphorus (2.5-4.9) mg/dl Magnesium (1.7-2.4) mg/dl AST (13-39) U/L ALT (7-52) U/L Total Creatine Kinase (30-223) U/L Troponin I High Sens (0-20) pg/ml Total Protein (6.0-8.3) gm/dl Albumin (3.4-5.0) gm/dl 10/30/21 10/30/21 10/30/21 Range/Units 04:16 04:21 05:17 RBC (4.7-6.1) M/uL Hgb (14.0-18.0) g/dL POC Hgb 10.9 L 8.2 L (14.0-18.0) g/dl Hct (42-52) % POC Hct 32 L 24 L (42-52) % MCHC (32-36) g/dL RDW Std Deviation (36.4-46.3) fL RDW Coeff of So (11.5-14.5) % MPV (7.4-10.4) fL Lymph # (Auto) (1.2-3.4) K/uL Immature Gran # (Auto) (0.00-0.02) K/uL Absolute Nucleated RBC (0-0) K/uL PT (9.0-12.0) Seconds INR (0.9-1.1) POC pH 7.09 L* 7.17 L* (7.35-7.45) POC pCO2 31 L 32 L (35-46) mmHg POC pO2 67 L 105 H (80-95) mmHg POC HCO3 9 L 12 L (19-24) inna/L POC Total CO2 10 L 13 L (24-31) mmol/L POC Base Excess -20.0 L -17.0 L (-9-1.8) inna/L ABG pH (Temp Correct) 7.071 L* 7.154 L* (7.35-7.45) ABG pCO2 (Temp Corrct 33 L 33 L (35-46) mmHg POC ABG O2 Sat 85.0 L 96.0 H (90-95) % VBG pH (7.36-7.41) VBG pCO2 (38-50) mmHg POC Sodium 126 L 126 L (135-144) mmol/L Sodium 125 L (136-145) mmol/L POC Potassium 7.3 H* 6.0 H (3.3-5.0) mmol/L Potassium 7.4 H* D (3.5-5.1) mmol/L Carbon Dioxide 9 L* (21-32) mmol/L Anion Gap 18 H (3-11) BUN 43 H (6-23) mg/dl Creatinine 2.89 H D (0.6-1.4) mg/dl Glucose 101 H (70-99(Fasting)) mg/dl POC Glucose (other) (70-99) mg/dl Lactate (0.4-2.0) mmol/L Calcium 6.5 L (8.5-10.1) mg/dl Ionized Calcium (1.12-1.32) mmol/L Phosphorus (2.5-4.9) mg/dl Magnesium (1.7-2.4) mg/dl AST (13-39) U/L ALT (7-52) U/L Total Creatine Kinase 950 H (30-223) U/L Troponin I High Sens (0-20) pg/ml Total Protein (6.0-8.3) gm/dl Albumin (3.4-5.0) gm/dl 05/04/22 05/04/22 Range/Units 07:08 07:08 RBC (4.7-6.1) M/uL Hgb 9.3 L (14.0-18.0) g/dL POC Hgb (14.0-18.0) g/dl Hct 30.1 L (42-52) % POC Hct (42-52) % MCHC (32-36) g/dL RDW Std Deviation (36.4-46.3) fL RDW Coeff of So (11.5-14.5) % MPV (7.4-10.4) fL Lymph # (Auto) (1.2-3.4) K/uL Immature Gran # (Auto) (0.00-0.02) K/uL Absolute Nucleated RBC (0-0) K/uL PT (9.0-12.0) Seconds INR (0.9-1.1) POC pH (7.35-7.45) POC pCO2 (35-46) mmHg POC pO2 (80-95) mmHg POC HCO3 (19-24) inna/L POC Total CO2 (24-31) mmol/L POC Base Excess (-9-1.8) inna/L ABG pH (Temp Correct) (7.35-7.45) ABG pCO2 (Temp Corrct (35-46) mmHg POC ABG O2 Sat (90-95) % VBG pH (7.36-7.41) VBG pCO2 (38-50) mmHg POC Sodium (135-144) mmol/L Sodium 132 L (136-145) mmol/L POC Potassium (3.3-5.0) mmol/L Potassium (3.5-5.1) mmol/L Carbon Dioxide 14 L (21-32) mmol/L Anion Gap 20 H (3-11) BUN 43 H (6-23) mg/dl Creatinine 2.76 H (0.6-1.4) mg/dl Glucose (70-99(Fasting)) mg/dl POC Glucose (other) (70-99) mg/dl Lactate (0.4-2.0) mmol/L Calcium 7.5 L (8.5-10.1) mg/dl Ionized Calcium (1.12-1.32) mmol/L Phosphorus 9.3 H (2.5-4.9) mg/dl Magnesium 2.5 H (1.7-2.4) mg/dl AST (13-39) U/L ALT (7-52) U/L Total Creatine Kinase (30-223) U/L Troponin I High Sens (0-20) pg/ml Total Protein (6.0-8.3) gm/dl Albumin (3.4-5.0) gm/dl
[2021-10-30] MEDS ORDERED: FINASTERIDE 5 MG TAB PO SCH (09:00)
[2021-10-30] MEDS ORDERED: RIVAROXABAN 20 MG TAB PO SCH (09:00)
[2021-10-30] MEDS: SODIUM BICARBONATE 8.4% 150 MEQ in DEXTROSE 5% 1,000 ML IV SCH (09:06)
[2021-10-30] MEDS ORDERED: SODIUM BICARB 8.4% INJ 50 MEQ/50 ML SYR IV ONE ×2 (10:40→10:59)
[2021-10-30 10:50] LABS: iSTAT Art Bld Gas pCO2 Correct 28 mmHg (35-46); iSTAT Art Bld Gas pH Corrected 7.113 (7.35-7.45); iSTAT Arterial Blood Gas HCO3 9 meg/L (19-24); iSTAT Arterial Blood Gas pCO2 27 mmHg (35-46); iSTAT Arterial Blood Gas pH 7.12 (7.35-7.45); iSTAT Arterial Blood Gas pO2 77 mmHg (80-95); iSTAT Arterial Blood Gas pO2 C 78; iSTAT Carbon Dioxide 10 mmol/L (24-31); iSTAT Hematocrit 27 % (42-52); iSTAT Hemoglobin 9.2 g/dl (14.0-18.0); iSTAT Potassium 6.6 mmol/L (3.3-5.0); iSTAT Site L Radial; iSTAT Sodium 128 mmol/L (135-144)
[2021-10-30] MEDS ORDERED: CALCIUM CHLORIDE 10% 10 ML SYR IV ONE (10:59)
[2021-10-30] MEDS ORDERED: CEFEPIME 1,000 MG in SYRINGE 0 ML IV SCH (12:00)
--- NOTE | 2021-10-30 15:34 | Electrocardiogram Report ---
Test Reason : Blood Pressure : / mmHG Vent. Rate : 117 BPM Atrial Rate : 117 BPM P-R Int : 136 ms QRS Dur : 082 ms QT Int : 332 ms P-R-T Axes : 052 -12 019 degrees QTc Int : 463 ms Poor data quality, interpretation may be adversely affected Sinus tachycardia Otherwise normal ECG When compared with ECG of 23-JUN-2021 10:59, Vent. rate has increased BY 59 BPM Confirmed by Beni Bettencourt ([id number]) on 10/30/2021 3:34:19 PM Referred By: REFERRED SELF Confirmed By:Beni Bettencourt
--- NOTE | 2021-10-31 09:05 | Electrocardiogram Report ---
Test Reason : Blood Pressure : / mmHG Vent. Rate : 085 BPM Atrial Rate : 085 BPM P-R Int : 154 ms QRS Dur : 088 ms QT Int : 366 ms P-R-T Axes : 052 003 038 degrees QTc Int : 435 ms Sinus rhythm with marked sinus arrhythmia with occasional Premature ventricular complexes ST elevation, consider early repolarization, pericarditis, or injury Borderline ECG When compared with ECG of 29-OCT-2021 05:04, (unconfirmed) Premature ventricular complexes are now Present ST elevation now present in Lateral leads Confirmed by Beni Bettencourt ([id number]) on 10/31/2021 9:04:46 AM Referred By: REFERRED SELF Confirmed By:Beni Bettencourt
--- NOTE | 2021-10-31 10:10 | Electrocardiogram Report ---
Test Reason : Blood Pressure : / mmHG Vent. Rate : 088 BPM Atrial Rate : 088 BPM P-R Int : 148 ms QRS Dur : 086 ms QT Int : 364 ms P-R-T Axes : 052 002 035 degrees QTc Int : 440 ms Sinus rhythm with Premature atrial complexes in a pattern of bigeminy Otherwise normal ECG When compared with ECG of 29-OCT-2021 13:18, (unconfirmed) Premature ventricular complexes are no longer Present Premature atrial complexes are now Present Confirmed by Beni Bettencourt ([id number]) on 10/31/2021 10:09:35 AM Referred By: REFERRED SELF Confirmed By:Beni Bettencourt
--- NOTE | 2021-10-31 10:27 | Electrocardiogram Report ---
Test Reason : Blood Pressure : / mmHG Vent. Rate : 063 BPM Atrial Rate : 227 BPM P-R Int : 000 ms QRS Dur : 170 ms QT Int : 430 ms P-R-T Axes : 000 -23 060 degrees QTc Int : 440 ms Wide QRS rhythm Left bundle branch block Abnormal ECG When compared with ECG of 29-OCT-2021 14:51, (unconfirmed) Wide QRS rhythm has replaced Sinus rhythm Confirmed by Beni Bettencourt ([id number]) on 10/31/2021 10:27:39 AM Referred By: REFERRED SELF Confirmed By:Beni Bettencourt
--- NOTE | 2021-10-31 10:28 | Electrocardiogram Report ---
Test Reason : Blood Pressure : / mmHG Vent. Rate : 099 BPM Atrial Rate : 099 BPM P-R Int : 182 ms QRS Dur : 094 ms QT Int : 338 ms P-R-T Axes : 054 -31 043 degrees QTc Int : 433 ms Normal sinus rhythm Left axis deviation Abnormal ECG When compared with ECG of 30-OCT-2021 04:12, (unconfirmed) Sinus rhythm has replaced Wide QRS rhythm Vent. rate has increased BY 36 BPM Confirmed by Beni Bettencourt ([id number]) on 10/31/2021 10:28:16 AM Referred By: REFERRED SELF Confirmed By:Beni Bettencourt
--- NOTE | 2021-10-31 13:04 | Communication Note ---
Date of Service: October 31, 2021 Nitin Marie, patient son, called with questions regarding underlying pathology. He informed me his father yesterday shortly after arrival at [facility]. He informed me Brock underwent a heart cath and no blockage was found and life-sustaining efforts were terminated when the patient was requiring supra-physiologic doses of vasoactive medications. I related current findings from culture data, discussed stress-induced cardiomyopathy, and possibility that additional information could be obtained from an autopsy if one is obtained. I affirmed Nitin can reach out for additional questions should they arise. Coding Level of Care Code None
--- NOTE | 2021-10-31 19:21 | Discharge Summary (DS) ---
DATE OF DISCHARGE: 10/30/2021. ADMISSION DIAGNOSES: Post-status laparoscopic cholecystectomy, severe abdominal pain and post-status exploratory laparotomy, washout abdomen. DISCHARGE DIAGNOSES: Post-status laparoscopic cholecystectomy and exploratory laparotomy, washout of abdomen, shock cardiomyopathy. PROCEDURE: Exploratory laparotomy, washout the abdomen. RED drainage x2. SURGEON: Demetrius Tobar MD. DETAILS OF DISCHARGE SUMMARY: This is a 66-year-old gentleman who had a laparoscopic cholecystectomy, which was a difficult case based on the patient had upper abdomen surgery for the bowel perforation in the past and small amount of scar around the right upper quadrant area on 10/28/2021. However, after the procedure, the patient was discharged to home, after 6 hours patient came back to the ER with severe abdominal pain and the patient had a CT scan in the ER, found the only post-status laparoscopic cholecystectomy changes with some fluid around the right upper quadrant area and some free air. The patient was admitted to the hospital overnight and the next day on 10/29/2021, I saw the patient and talked to the patient about the history, physical exam, and reviewed all lab and CT scan with the patient and decided to recommend to take the patient to the OR, do exploratory laparotomy, possible bowel resection, ostomy and we took the patient. The patient agreed to the procedure, the patient signed informed consent and I took the patient to the OR. We did midline incision to exploratory laparotomy. We only found some free fluid. We sent a wound culture. We did find a significant injury to the bowel. At this moment, we used normal saline and flushed abdomen, suctioned all the fluid out, put 2 RED, one below the liver, another one above the liver. Then, we closed the incision and during the procedure, the patient's blood pressure was around 90/60. the patient was transferred to the ICU and they managed him in the ICU by the ICU attending. Otherwise, the patient is doing reasonable stable overnight; however, on 10/30/2021, 4 a.m. patient had an EKG, rhythm change and the patient had lab results show a high potassium 7. they did a medical treatment to lower potassium, the potassium came down to 6 and the patient is still on the vent. PHYSICAL EXAMINATION: VITAL SIGNS: Temperature is 37.2, respiratory rate 21, heart rate 112, blood pressure 108/77, O2 saturation 95% on room air. GENERAL: The patient is still on the vent. CHEST: Bilateral lung sounds clear. HEART: Normal S1 and S2. No murmur. ABDOMEN: Mild distention and all incisions intact. RED drainage about a 600 mL. EXTREMITIES: No edema. Overnight, the patient developed acute renal failure. After we discussed with ICU attending and we both recommended to transfer to a higher level of care and talk to [facility] Dr. Philip ICU attending, who accepted the patient and patient was transferred to [facility] on 10/30/2021 around 1:00 p.m. Before transfer we also called the patient's to update about the patient's condition and recommend to transfer to a higher level and talk to her about the benefit, risk, and alternate of transfer. The patient's understands and she agreed to transfer the patient. Job ID: [id number]
== END 2021-10-30 11:00 | disposition short-term general hospital (02) | DRG 356 ==
LOC: 3N 23:05 → ED 23:05 → 3N 10-29 04:30 → 2N 10-29 06:59 → 1E 10-29 10:41